=== PATIENT | female | born 1930 | race Caucasian/White ===

== ENCOUNTER 2016-05-06 13:41 | Outpatient (CLI) | payer MEDICARE, OTHER | END 2016-05-06 13:42 | disposition home or self-care (01) | DX: I10 Essential (primary) hypertension (principal) ==

== ENCOUNTER 2016-08-21 13:04 | Inpatient (IN) | payer MEDICARE, OTHER ==
[2016-08-21 13:57] LABS: BASOPHILS # (AUTO) 0.1 10^3/uL (0.0-0.1); BASOPHILS % (AUTO) 0.6 %; EOSINOPHILS # (AUTO) 0.6 10^3/uL (0.0-0.7); EOSINOPHILS % (AUTO) 5.3 %; HCT - HEMATOCRIT 38.6 % (37.0-47.0); HGB - HEMOGLOBIN 13.1 g/dL (12.0-16.0); LYMPHOCYTES # (AUTO) 2.5 10^3/uL (1.5-3.5); LYMPHOCYTES % (AUTO) 22.4 %; MEAN CORPUSCULAR HEMOGLOBIN 28.6 pg (27.0-31.0); MEAN CORPUSCULAR VOLUME 84.2 fL (81.0-99.0); MONOCYTES # (AUTO) 1.1 10^3/uL (0.0-1.0); NEUTROPHILS # (AUTO) 6.8 10^3/uL (1.5-6.6); NEUTROPHILS % (AUTO) 61.7 %; RED BLOOD COUNT 4.58 10^6/uL (4.20-5.40); RED CELL DISTRIBUTION WIDTH 16.2 % (12.0-15.0)
--- NOTE | 2016-08-21 13:59 | ED Physician Documentation ---
PD HPI ALTERED MENTAL STATUS - Stated complaint Stated Complaint: POSS STROKE - Chief complaint Chief Complaint: Neuro - History obtained from History obtained from: Patient - History of Present Illness Timing - onset: Unknown Timing - duration: Days (unsure, but seems more frequent than in the past) Timing - details: Intermittant Quality / character: Other (states intermittent word finding difficulties.) Associated symptoms: No: Fever, Headache, Stiff neck, Dyspnea, Cough, NVD, Urinary sx, General weakness, Focal weakness, Seizure activity, Syncope Contributing factors: Diabetic Basline status: Alert and oriented X 3, Ambulatory, Independent Similar symptoms before: Has not had sx before Recently seen: Clinic (sent from [facility] cardiology appt for evaluation.) Review of Systems Ten Systems: 10 systems reviewed and negative Constitutional: denies: Fever, Chills Nose: denies: Rhinorrhea / runny nose, Congestion Cardiac: denies: Chest pain / pressure Respiratory: denies: Cough GI: denies: Abdominal Pain, Nausea, Vomiting, Diarrhea Skin: denies: Rash Musculoskeletal: denies: Neck pain, Back pain Neurologic: denies: Focal weakness, Numbness, Syncope, Headache, Head injury PD PAST MEDICAL HISTORY - Past Medical History Past Medical History: Yes Cardiovascular: Congestive heart failure, Hypertension, Deep vein thrombosis, Angina Respiratory: None Neuro: None Endocrine/Autoimmune: Type 2 diabetes, HyPOthyroidism GI: GERD Musculoskeletal: Fibromyalgia, Chronic back pain - Past Surgical History Past Surgical History: Yes General: Colonoscopy /FUR LINER: Hysterectomy, Oophrectomy HEENT: Cataracts, Tonsil/Adenoidectomy - Present Medications Home Medications: Ambulatory Orders Medication Instructions Recorded Confirmed Furosemide [Lasix] 20 mg PO DAILY 04/26/13 08/21/16 Insulin Glargine [Lantus] 20 unit SUBQ QPM 04/26/13 08/21/16 Levothyroxine [Synthroid] 88 mcg PO QDAC 04/26/13 08/21/16 Losartan [Cozaar] 100 mg PO DAILY 04/26/13 08/21/16 Ranitidine HCl [Zantac] 150 mg PO BID 04/26/13 08/21/16 Tizanidine HCl 4 mg PO TID PRN 04/26/13 08/21/16 traMADol [Ultram] 100 mg PO TID PRN 04/26/13 08/21/16 traZODone [Desyrel] 75 mg PO HS PRN 04/26/13 08/21/16 Aspirin [Paco Chewable Aspirin] 81 mg PO DAILY 10/04/15 08/21/16 oxyCODONE [Roxicodone] 5 mg PO BID PRN 10/04/15 08/21/16 Atorvastatin Calcium 20 mg PO QPM 03/22/16 08/21/16 Cholecalciferol (Vitamin D3) 2,000 unit PO DAILY 03/22/16 08/21/16 [Vitamin D3] Lisinopril 10 mg PO DAILY 03/22/16 08/21/16 Metoprolol Tartrate 50 mg PO BID 03/22/16 08/21/16 Multivitamin [Multiple Vitamins] 1 each PO DAILY 03/22/16 08/21/16 Saccharomyces Boulardii [Florastor] 250 mg PO QPM 03/22/16 08/21/16 amLODIPine [Norvasc] 5 mg PO BID 03/22/16 08/21/16 cloNIDine [Catapres] 0.1 mg PO DAILY 03/22/16 08/21/16 cloNIDine [Catapres] 0.2 mg PO QPM 03/22/16 08/21/16 - Allergies Allergies/Adverse Reactions: Allergies Allergy/AdvReac Type Severity Reaction Status Date / Time pregabalin [From Lyrica] Allergy Severe Hives Verified 08/21/16 13:10 Penicillins AdvReac Intermediate Hives Verified 08/21/16 13:10 iv contract Allergy Severe Hives Uncoded 08/21/16 13:10 - Social History Does the pt smoke?: No Smoking Status: Never smoker Does the pt drink ETOH?: No Does the pt have substance abuse?: No - Immunizations Immunizations are current?: Yes - POLST Patient has POLST: Yes PD ED PE NORMAL - Vitals Vital signs reviewed: Yes - General General: Alert and oriented X 3, No acute distress, Well developed/nourished - HEENT HEENT: PERRL, Moist mucous membranes - Neck Neck: Supple, no meningeal sign - Cardiac Cardiac: RRR, Strong equal pulses - Respiratory Respiratory: No respiratory distress, Clear bilaterally - Abdomen Abdomen: Soft, Non tender, Non distended - Back Back: No spinal TTP - Derm Derm: Warm and dry, No rash - Extremities Extremities: No calf tenderness / cord - Neuro Neuro: Alert and oriented X 3, 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, No motor deficit, No sensory deficit, Other (difficulty with word finding occasionally.) - Psych Psych: Normal mood, Normal affect NIHSS - Time Time: 13:40 - Level of Consciousness Level of consciousness: (0) Alert, Keenly responsive LOC Questions: (0) Answers both Q's correct LOC Commands: (0) Performs both correctly - Gaze Best Gaze: (0) Normal - Visual Visual: (0) No loss - Facial Palsy Facial Palsy: (0) Normal, symmetrical movement - Motor Arms (both separate) Motor Arm (right): (0) No drift Motor Arm (left): (0) No drift - Motor Legs (both separate) Motor Leg (right): (0) No drift Motor Leg (left): (0) No drift - Limb Ataxia Limb Ataxia: (0) Absent - Sensory Sensory: (0) Normal - Best Language Best Language: (1) [id number] - Dysarthria Dysarthria: (0) Normal - Extinction and Inattention (formally neg Extinction and inattention: (0) No abnormality - Total Score/Results Total Score/Result: 1 Results - Vitals Vitals: Vital Signs - 24 hr 08/21/16 08/21/16 13:05 14:34 Temperature 36.8 C Heart Rate 87 100 Respiratory 17 18 Rate Blood Pressure 179/108 H 169/82 H O2 Saturation 97 100 Oxygen O2 Source [With Activity] Room air O2 Source Room air - Labs Labs: Laboratory Tests 08/21/16 08/21/16 08/21/16 13:35 13:35 13:38 WBC 11.0 H RBC 4.58 Hgb 13.1 Hct 38.6 MCV 84.2 MCH 28.6 MCHC 34.0 RDW 16.2 H Plt Count 237 MPV 8.0 Neut # 6.8 H Lymph # 2.5 Juab # 1.1 H Eos # 0.6 Baso # 0.1 Absolute Nucleated RBC 0.00 Nucleated RBCs 0.0 Sodium 138 Potassium 3.9 Chloride 100 L Carbon Dioxide 29 Anion Gap 9.0 BUN 60 H Creatinine 1.6 H Estimated GFR (MDRD) 31 L Glucose 87 Glycated Hemoglobin 8.5 H Estim Average Glucose 197 H Calcium 9.7 Total Bilirubin 0.5 AST 29 ALT 27 Alkaline Phosphatase 74 Total Protein 7.1 Albumin 4.1 Globulin 3.0 Albumin/Globulin Ratio 1.4 Lipase 25 Urine Color Urine Clarity Urine pH Ur Specific [place] Urine Protein Urine Glucose (UA) Urine Ketones Urine Occult Blood Urine Nitrite Urine Bilirubin Urine Urobilinogen Ur Leukocyte Esterase Ur Microscopic Review Urine Culture Comments 08/21/16 14:25 WBC RBC Hgb Hct MCV MCH MCHC RDW Plt Count MPV Neut # Lymph # Juab # Eos # Baso # Absolute Nucleated RBC Nucleated RBCs Sodium Potassium Chloride Carbon Dioxide Anion Gap BUN Creatinine Estimated GFR (MDRD) Glucose Glycated Hemoglobin Estim Average Glucose Calcium Total Bilirubin AST ALT Alkaline Phosphatase Total Protein Albumin Globulin Albumin/Globulin Ratio Lipase Urine Color YELLOW Urine Clarity CLEAR Urine pH 5.5 Ur Specific [place] <=1.005 Urine Protein NEGATIVE Urine Glucose (UA) NEGATIVE Urine Ketones NEGATIVE Urine Occult Blood NEGATIVE Urine Nitrite NEGATIVE Urine Bilirubin NEGATIVE Urine Urobilinogen 0.2 (NORMAL) Ur Leukocyte Esterase NEGATIVE Ur Microscopic Review NOT INDICATED Urine Culture Comments NOT INDICATED - Rads (name of study) CT head Radiology: Prelim report reviewed, EMP read contemporaneously, See rad report ( CT findings suspicious for subacute posterior left MCA distribution infarct. There is parietal region cortical and subcortical hypodensity with sulcal effacement. No evidence of hemorrhage or significant mass effect. ) PD MEDICAL DECISION MAKING - ED course Complexity details: reviewed results, re-evaluated patient, considered differential, d/w patient, d/w group segment consultant ED course: Patient is an 86-year-old female with word finding difficulties for the past 2- 3 days. Appears to have a subacute posterior left MCA distribution infarct on CT scan. She is still having some difficulty with word finding the emergency department. We will admit the patient for further evaluation of her stroke. Discussed the case with Dr. Gomez, hospitalist who accepts. No other focal neurological findings. This document was made in part using voice recognition software. While efforts are made to proofread this document, sound alike and grammatical errors may occur. Departure - Departure Disposition: 66 [facility] DC/Xfer Clinical Impression: Cerebrovascular accident (CVA) Qualifiers: CVA mechanism: unspecified Qualified Code(s): I63.9 - Cerebral infarction, unspecified Condition: Good Discharge Date/Time: 08/21/16 17:22
[2016-08-21 14:07] LABS: ALBUMIN/GLOBULIN RATIO 1.4 (1.0-2.2); BILIRUBIN,TOTAL 0.5 mg/dL (0.2-1.0); CALCIUM 9.7 mg/dL (8.5-10.3); CREATININE 1.6 mg/dL (0.4-1.0); POTASSIUM 3.9 mmol/L (3.5-5.0); TOTAL PROTEIN 7.1 g/dL (6.7-8.2)
--- NOTE | 2016-08-21 14:41 | CT Preliminary Report ---
Exam: CT Head W/O IMPRESSION: CT findings suspicious for subacute posterior left MCA distribution infarct. There is par ietal region cortical and subcortical hypodensity with sulcal effacement. No evidence of hemorrhage o r significant mass effect. [facility] SITE ID: [id number]
--- NOTE | 2016-08-21 14:44 | CT Report ---
EXAM: CT HEAD EXAM DATE: 08/21/2016 02:15 PM. CLINICAL HISTORY: Word finding difficulty. COMPARISON: 09/25/2014. TECHNIQUE: Multiaxial CT images were obtained from the foramen magnum to the vertex. IV contrast: Non e. Reformats: Coronal. In accordance with CT protocol optimization, one or more of the following dose reduction techniques w ere utilized for this exam: automated exposure control, adjustment of mA and/or KV based on patient s ize, or use of iterative reconstructive technique. FINDINGS: There is ill-defined subcortical hypodensity within the posterior left parietal lobe. There is mild associated sulcal effacement. There is no evidence of significant mass effect. No parenchyma l hemorrhage. No other areas of recent loss of vo-white matter differentiation are seen. There is periventricular white matter hypodensity which likely represents small vessel ischemic disease. There is mild genera lized volume loss. Ventricles and cisterns are normal in size and configuration. No acute extra-axial collection is seen. There are vascular calcifications. Visualized paranasal sinuses and mastoid air cells are clear. No acute bony abnormalities. Extracalva rial soft tissues are unremarkable. IMPRESSION: CT findings suspicious for subacute posterior left MCA distribution infarct. There is par ietal region cortical and subcortical hypodensity with sulcal effacement. No evidence of hemorrhage o r significant mass effect. [facility] Referring Provider Line: [phone] SITE ID: [id number]
[2016-08-21 14:54] LABS: BILIRUBIN,URINE NEGATIVE (NEGATIVE); PH,URINE 5.5 PH (5.0-7.5); UA CHARGE (STRIP ONLY) YES; UR CULTURE IF IND NOT INDICATED
[2016-08-21] MEDS ORDERED: SODIUM CHLORIDE FLUSH 0.9% 10 ML SYRINGE IVP PRN (15:41)
[2016-08-21] MEDS ORDERED: SODIUM CHLORIDE 0.9% 1,000 ML IV SCH ×2 (16:00→19:00)
--- NOTE | 2016-08-21 18:12 | Ultrasound Preliminary Report ---
Exam: US Carotid Doppler Complete IMPRESSION: 1. Left carotid bulb and proximal ICA demonstrate greater than 70% stenosis. 2. Mid left ICA consistent with 5069% estimated stenosis. 3. Distal left ICA consistent with less than 50% estimated stenosis. 4. No right carotid hemodynamically significant stenoses. 5. Left greater than right carotid bulb calcific plaque noted. Validated velocity measurements with angiographic measurements and velocity criteria are extrapolated from diameter data as defined by the Society of Radiologists in Ultrasound Consensus Conference Radi ology 2003; 229;340-346. [facility] SITE ID: [id number]
[2016-08-21] MEDS ORDERED: oxyCODONE 5 MG TABLET PO PRN (18:25)
[2016-08-21] MEDS ORDERED: traMADol 50 MG TABLET PO PRN (18:25)
[2016-08-21] MEDS ORDERED: traZODone 50 MG TABLET PO PRN (18:25)
--- NOTE | 2016-08-21 18:25 | Ultrasound Report ---
EXAM: CAROTID DOPPLER ULTRASOUND EXAM DATE: 08/21/2016 05:30 PM. CLINICAL HISTORY: Stroke, rule out carotid artery stenosis. COMPARISON: None. TECHNIQUE: Real-time sonographic vascular imaging was performed by the aircraft maintenance manager through the [employer] arterial system with a linear transducer utilizing color-flow, Doppler flow and spectral analysis. Multiple truck sales representative static images were saved for review. FINDINGS: Right: No hemodynamically significant stenoses identified. Mild calcific plaque present around the ca rotid bulb diffusely. Antegrade vertebral artery flow noted. Left: Moderate atherosclerotic plaque present about the carotid bulb diffusely. Elevated peak systoli c velocities and end-diastolic velocities noted within the left carotid bulb and proximal greater kevin n distal ICA. Left bulb and proximal ICA velocities consistent with greater than 70% stenosis, mid IC A consistent with 5069% estimated stenosis and distal ICA consistent with less than 50% estimated st enosis. Antegrade left vertebral artery flow noted. Right: RCCA Prox: PSV 68 cm/sec. RCCA Dist: PSV 94 cm/sec, EDV 17 cm/sec. RECA: PSV 99 cm/sec. R Bulb: PSV 48 cm/sec, EDV 11 cm/sec, ICA/CCA ratio 0.51. OLGA LIDIA Prox: PSV 106 cm/sec, EDV 33 cm/sec, ICA/CCA ratio 1.1. OLGA LIDIA Mid: PSV 81 cm/sec, EDV 18 cm/sec, ICA/CCA ratio 0.86. OLGA LIDIA Dist: PSV 76 cm/sec, EDV 21 cm/sec, ICA/CCA ratio 0.80. RVA: PSV 69 cm/sec. RVA flow direction: Antegrade. Left: LCCA Prox: PSV 52 cm/sec. LCCA Dist: PSV 48 cm/sec, EDV 11 cm/sec. LECA: PSV 188 cm/sec. L Bulb: PSV 329 cm/sec, EDV 47 cm/sec, ICA/CCA ratio 6.85. LICA Prox: PSV 296 cm/sec, EDV 54 cm/sec, ICA/CCA ratio 6.16. LICA Mid: PSV 220 cm/sec, EDV 34 cm/sec, ICA/CCA ratio 4.58. LICA Dist: PSV 128 cm/sec, EDV 26 cm/sec, ICA/CCA ratio 2.66. LVA: PSV 63 cm/sec. LVA flow direction: Antegrade. Other: None. IMPRESSION: 1. Left carotid bulb and proximal ICA demonstrate greater than 70% stenosis. 2. Mid left ICA consistent with 5069% estimated stenosis. 3. Distal left ICA consistent with less than 50% estimated stenosis. 4. No right carotid hemodynamically significant stenoses. 5. Left greater than right carotid bulb calcific plaque noted. Validated velocity measurements with angiographic measurements and velocity criteria are extrapolated from diameter data as defined by the Society of Radiologists in Ultrasound Consensus Conference Radi ology 2003; 229;340-346. [facility] Referring Provider Line: [phone] SITE ID: [id number]
[2016-08-21 20:35] LABS: HEMOGLOBIN A1C 0.98 g/dL
[2016-08-21] MEDS: INSULIN ASPART 300 UNIT/3 ML PEN SUBQ SCH (20:51)
[2016-08-21] MEDS ORDERED: INSULIN GLARGINE 300 UNIT/3 ML PEN SUBQ SCH ×2 (21:00)
[2016-08-21] MEDS ORDERED: INSULIN GLARGINE 20 UNIT SUBQ SCH (21:00)
[2016-08-21] MEDS ORDERED: cloNIDine 0.1 MG TABLET PO SCH (21:00)
[2016-08-21] MEDS ORDERED: ATORVASTATIN 40 MG TABLET PO SCH (21:00)
[2016-08-21] MEDS ORDERED: METOPROLOL TARTRATE 25 MG TABLET PO SCH (21:00)
[2016-08-21] MEDS: SODIUM CHLORIDE FLUSH 0.9% 10 ML SYRINGE IVP SCH (21:05)
--- NOTE | 2016-08-22 06:12 | HISTORY & PHYSICAL EXAMINATION ---
DATE OF ADMISSION: 08/21/2016 PRIMARY CARE PHYSICIAN: Keren Espitia M.D. She also is followed by Fiona Vieira MD, Cardiology. CHIEF COMPLAINT: Difficult word finding since Thursday. HISTORY OF PRESENT ILLNESS: The patient is an 86-year-old female who notes that on Thursday, approximately 4 days ago, she woke up and she said immediately she could tell that something was wrong and she let her son know. She had difficulty finding words. At the time she did actually have awareness that that could be a sign of a stroke, and even said to him, "I think I'm having a stroke, " but they did not seek intervention. When asked why she presented finally today , she said that a friend was over and she was still having word finding difficulty. She denies it is any worse or better over the last 4 days, and she was advised by her friend to come to the emergency room. On exam she did not have any other focal deficits specifically no trouble chewing or swallowingno no aphasia, no receptive aphasia, no unilateral weakness or paresthesias and no falls. She also denies any prior history of stuttering or occasional symptoms of word-finding difficulty. In the emergency room, a CT of the brain showed findings suspicious for a subacute posterior left MCA distribution infarct. Of note, on prior admissions the patient had had an ultrasound of the carotids, which was suggestive of a 70 % left carotid stenosis. However, as an outpatient at the [facility] she had an MRA of the neck, which demonstrated that this was only 40% on the clearer resolution offered by the MR. She was already taking baby aspirin daily and she was taking that as prescribed every day. She is also on a low dose statin, which she has been taking. Regarding other risk factors for stroke, she does not have a prior history of atrial fibrillation (see below re: new afib), does not have a smoking history, does have a history of hyperlipidemia again on low dose statin, and history of coronary disease and hypertension. It is not clear that she has ever had a definitive diagnosis of coronary artery disease with a cardiac catheterization. PAST MEDICAL HISTORY 1. Congestive heart failure with known diastolic dysfunction. 2. Hypertension. 3. History of deep venous thrombosis. 4. History of "angina and coronary disease." I do not have records, I will explore Dr. Vieira's notes. 5. History of obstructive sleep apnea on CPAP. 6. Diabetes mellitus type 2 on insulin. 7. Hypothyroidism. 8. Gastroesophageal reflux disease. 9. Fibromyalgia. 10. Chronic low back pain following a fall 11 MRA neck ~ 01/2016 ([facility] 40% stenosis L ICA per Dr. Vieira). HOME MEDICATIONS LIST This is yet to be confirmed, but the patient thinks she remembers this list: 1. Lasix 40 mg in the morning and 20 mg at noon. 2. Lantus 30 units each evening. This is an increase from 20 in March. 3. Levothyroxine 88 mcg once daily. 4. Losartan 100 mg once daily>>>>iN MED RECONCILIATION SHE IS NOT ON LOSARTAN, ONLY ACEI 5. Zantac 150 mg twice daily. 6. Tizanidine 4 mg 3 times daily if needed for back pain. 7. Ultram 100 mg 3 times daily p.r.n. 8. Trazodone 75 mg nightly at bedtime. 9. Aspirin 81 mg once daily. 10. Oxycodone 5 mg twice daily if needed. She has not taken that recently. 11. Atorvastatin 20 mg each evening. 12. Cholecalciferol 2000 units daily. 13. Lisinopril 10 mg once daily. 14. Metoprolol 50 mg twice daily. 15. Multivitamin once daily. 16. Amlodipine THIS WAS STOPPED MARCH 2016. 17. Clonidine 0.1 mg each evening at 0.2 mg each p.m. PRIOR PROCEDURES AND SURGERIES Include 1. A Mohs procedure (?) FROM OLD RECORD. 2. Colonoscopy. 3. NIKIA. 4. Tonsillectomy and adenoidectomy. 5. Cholecystectomy. SOCIAL HISTORY: She LIVES IN [place], has been for 3 years. She lives with one son, her youngest. She has 4 other children who are in the [place] area. FAMILY HISTORY: Her mother , and patient's dysarthria is interfering with her being able to say why. Her father at age 90. She does have a sister who has pulmonary disease evidently in the form of asthma. (per old record, a daughter w/ emphsema is 02 dependent.) ALLERGIES SHE HAS HIVES A REACTION TO 1. PENICILLIN. 2. IV CONTRAST. 3. LYRICA. HABITS: Never tobacco smoker, no alcohol, and no illicits. REVIEW OF SYSTEMS CONSTITUTIONAL: She denies any unintentional weight loss or weight gain. No fevers, night sweats, or lymphadenopathy. HEAD, EYES, EARS, NOSE, AND THROAT: Denies any vision changes. CARDIOVASCULAR: No chest pain, palpitations. No near-syncope. No edema. RESPIRATORY: No cough, shortness of breath, or wheezing. She does wear her CPAP nightly as above. GASTROINTESTINAL: She reports that she takes MiraLax twice daily and complains of having frequent loose bowel movements. She denies constipation. Denies any food intolerance. Denies any melena or hematochezia. MUSCULOSKELETAL: No new myalgias or arthralgias. GENITOURINARY: No dysuria, frequency, or hesitancy. NEUROLOGIC: As per the HPI. PSYCHIATRIC: She reports no difficulty sleeping and was controlled on her trazodone. ENDOCRINE: She is on Lantus, and she reports a dose increase to 30 units once a day which is increased from her last stay here in March. She does check her fingersticks, and at the moment with her word finding difficulty she says she cannot remember ever having been high or low, and that she has been forgetting to check her fingersticks this week. She denies lows under 70 or highs over 200. PHYSICAL EXAMINATION VITAL SIGNS: In the emergency room afebrile 36.8, heart rate 87. Initial blood pressure 179/108, subsequent 169/82, respiratory rate 17, room air oxygenation 97%. GENERAL: The patient is seen at approximately 6 p.m. when she returned from a carotid duplex. She came to the floor by stretcher and she was able to get up out of the stretcher on her own without assistance. In general, she is a rather short elderly female who is alert and oriented and appropriate female who is somewhat frustrated on occasion when she has difficulty finding a word and closes her eyes as she tries to think of it but for the most part able to articulate w/o difficulty.. HEAD, EARS, EYES, NOSE, AND THROAT: She is normocephalic, atraumatic. Eyes are with anicteric sclerae. Her extraocular movements are intact. Pupils are approximately 2 mm. No appreciable senile arcus. Her cheeks are somewhat flushed. Oral mucosa is moist. Her face is symmetric. NECK: There is no appreciable lymphadenopathy. Supple. There is a carotid bruit that is easily audible on the left that is not present on the right. CHEST: With unlabored respirations, no cough, clear to auscultation. CARDIAC: Irregularly irregular S1, S2 currently. Difficult to tell until monitor is hooked up whether this is just occasional extrasystole. She has periphery warm and dry. No appreciable lower extremity edema. ABDOMEN: She has a generous abdomen which is soft and nontender with positive bowel sounds. NEUROLOGIC: She is alert, oriented and appropriate. Has a good recall of events. She is able to label a curtain, a shoe, a foot, and nearly gets out the word stethoscope. She is able to say what it is for, but has some difficulty identifying that item by word. Cranial nerves 2 through 12 as above. Extraocular movements are intact. Face is symmetric. Tongue is midline. Smile is symmetric. Shoulder shrug is even. Rapid alternating movements are intact and she has a negative pronator drift. In obtaining her history, she only occasionally suddenly has a lapse in being able to name a medication that she is on or a treatment such as her sleep apnea , she says, "for breathing," and also had a sudden inability to come up with a word when trying to indicate why her mother , but generally is doing quite well in speech responses. DIAGNOSTIC STUDIES: As above. CT of the brain showed a likely subacute posterior left MCA distribution infarct with parietal region cortical and subcortical hypodensity with sulcal effacement. No hemorrhage or mass effect. LABORATORY STUDIES: White count 11.0, hemoglobin 13.1, hematocrit 38.6, platelets 237,000. Sodium 138, potassium 3.9, chloride 100, bicarbonate 29, BUN 60, creatinine 1.6. This is in comparison with a BUN and creatinine of 25 and 1.2 when she was last here in March 2016. Troponin was not done, but one will be added to her labs. Lipid panel was not done, but will be added. EKG and backup administrator to tele intially pending at the time of this dictation, BUT once hooked up to telemetry she is clearly in rate controlled aflutter 3:1-4:1 currently. ASSESSMENT AND PLAN 1. Acute stroke with thus far only a word finding deficit as far as neurologic deficits. Initially, the left carotid was felt to be the most obvious likely source. However, the 70% stenosis seen on a prior ultrasound here corresponds with only 40% on a recent MRA; however, she certainly does have a bruit on that side. A repeat ultrasound was done today and at Dr. Vieira's request we will repeat the MRA to get a better depiction of that left carotid. She was already on aspirin, so Plavix will be added for dual antiplatelet therapy. She is on a statin, but only at 20 mg daily. This will be increased to 80 mg. She will also be on telemetry overnight. Currently, she sounds irregular. She could conceivably have developed atrial fibrillation, and will have a troponin checked. >>No telemetry or EKG yet at the time of this dictation, but did have new aflutter; see d/c summary. 2. She is somewhat volume deplete, with a BUN and creatinine of 60/1.6 compared with a more recent 25/1.2, and she will get some gentle volume overnight in case any volume depletion is mildly contributing to the symptoms as well, and we will check her fingersticks to ensure adequate glucose control with her stroke, although her admitting glucose is very well controlled range at 87. We will also monitor for any hypoglycemia. Her blood pressure is elevated , but given the acute stroke we will allow permissive hypertension with no intervention, unless her blood pressure is over 220/110. 3. Acute kidney injury with BUN and creatinine of 60 and 1.6, with the most recent comparison that we have 25/1.2 in March. If I understand correctly, she has been taking Lasix 40 in the morning and 20 at noon. She was discharged on 20 once a day. She also indicates that she is having frequent bowel movements when taking MiraLax. She will be gently hydrated overnight, and we will reevaluate with the increased Lasix dose what the indication would have been, and will revaluate her BUN and creatinine in the morning. It is unclear if she may have been taking both an ARB and ACEI from the last discharge summary . We will clarifiy this with pharmacy reoncilliation in the am. 4. Hypertension. As above, we will have permissive hypertension. She is already on several agents at home, clonidine, metoprolol, Losartan, and lisinopril. For now, I will resume her metoprolol as well as the clonidine to avoid any reflex tachycardia and, again, avoid any hypotension in the setting of acute stroke. Hold off on ACEI for #3 above. 5. Obstructive sleep apnea. She religiously wears her CPAP and she indicates that her son will be bringing that from home. 6. Chronic low back pain. We will continue her home medications for that, which include p.r.n. tizanidine, p.r.n. tramadol, and p.r.n. oxycodone. 7. Gastroesophageal reflux disease. She can continue on her H2 rebecca, in here we have famotidine. 8. Diabetes mellitus type 2. We will continue her home dose of Lantus 30. Since her glucose was only 87 on admission and she has not eaten all day I am actually going to give her half of her home dose of go on from there. 9. Deep vein thrombosis prophylaxis. She will be on Lovenox 40 mg in the setting of acute stroke. 10. CODE STATUS: She was having some word finding difficulty, when she said, "I have one of those green forms," I believe she was indicating a POLST. She said she would not want anything if she could not be kept alive, but when we tried to be clear that that is not something we can tell, she says she has not given enough thought, and she is aware to give some more consideration to what she would like done in the event of cardiopulmonary arrest. (Later found on old H/P she has requested DNR/DNI in past) JOB #: [id number] EXT JOB #:[id number] MARY JO
[2016-08-22] MEDS: SODIUM CHLORIDE FLUSH 0.9% 10 ML SYRINGE IVP SCH ×2 (06:15→14:16)
[2016-08-22 06:18] LABS: HCT - HEMATOCRIT 39.6 % (37.0-47.0); MEAN CORPUSCULAR HEMOGLOBIN 28.3 pg (27.0-31.0); MEAN CORPUSCULAR HGB CONC 32.8 g/dL (32.0-36.0); MEAN CORPUSCULAR VOLUME 86.2 fL (81.0-99.0); RED BLOOD COUNT 4.59 10^6/uL (4.20-5.40); RED CELL DISTRIBUTION WIDTH 16.7 % (12.0-15.0); WHITE BLOOD COUNT 10.6 x10^3/uL (4.8-10.8)
[2016-08-22 06:24] LABS: CALCIUM 9.2 mg/dL (8.5-10.3); CREATININE 1.5 mg/dL (0.4-1.0); POTASSIUM 3.8 mmol/L (3.5-5.0)
[2016-08-22] MEDS ORDERED: LEVOTHYROXINE 88 MCG TABLET PO SCH (07:00)
[2016-08-22] MEDS ORDERED: METOPROLOL TARTRATE 25 MG TABLET PO SCH (08:47)
[2016-08-22] MEDS: INSULIN ASPART 300 UNIT/3 ML PEN SUBQ SCH ×2 (08:54→11:56)
[2016-08-22] MEDS ORDERED: POLYETHYLENE GLYCOL 3350 17 GM PACKET PO SCH (09:00)
[2016-08-22] MEDS ORDERED: ASPIRIN CHEW 81 MG TABLET PO SCH (09:00)
[2016-08-22] MEDS ORDERED: ENOXAPARIN 30 MG/0.3 ML SYRINGE SUBQ SCH (09:00)
[2016-08-22] MEDS ORDERED: cloNIDine 0.1 MG TABLET PO SCH ×2 (09:00)
[2016-08-22] MEDS ORDERED: ENOXAPARIN 40 MG/0.4 ML SYRINGE SUBQ SCH (09:00)
[2016-08-22] MEDS ORDERED: CLOPIDOGREL 75 MG TABLET PO SCH (09:00)
[2016-08-22 09:25] LABS: CHOL/HDL RATIO 2.5 (<4.4); CHOLESTEROL 111 mg/dL; HDL CHOLESTEROL 45 mg/dL; LDL/HDL RATIO 1.1 (<4.4); TRIGLYCERIDES 87 mg/dL; VLDL CHOLESTEROL 17 mg/dL
--- NOTE | 2016-08-22 11:18 | MRI Preliminary Report ---
Exam: MRI Angio Brain W/O (MRA) IMPRESSION: Unremarkable screening [facility] MRA. [facility] SITE ID: [id number]
--- NOTE | 2016-08-22 11:23 | MRI Preliminary Report ---
Exam: MRI Angio Neck W/O (MRA) IMPRESSION: Prominent stenosis in the region of the left cervical carotid bifurcation. Left ICA origi n stenosis measures about 60%. [facility] SITE ID: [id number]
[2016-08-22] MEDS ORDERED: ATORVASTATIN 40 MG TABLET PO SCH (11:37)
--- NOTE | 2016-08-22 11:41 | MRI Preliminary Report ---
Exam: MRI Brain W/O IMPRESSION: Late subacute infarct of the left lateral temporal occipital region with petechial hemorr renee. [facility] SITE ID: [id number]
--- NOTE | 2016-08-22 11:45 | Discharge Plan ---
Discharge Plan Disposition: Home, Self Care Condition: Stable Diet: Diabetic Activity Restrictions: No Restrictions Shower Restrictions: No Driving Restrictions: No Weight Bearing: Full Weight Additional Instructions or Follow Up instructions: Stroke You came to the hospital after several days of noticing you had "word finding difficulty" . Brain imaging showed a new stroke Evaluation of possible causes of stroke showed 1) NEW atrial flutter (a heart rhythm abnormality that can cause stroke) 2) stenosis (tightening of the Left carotid (vessel that runs to the brain in your neck), which was already known of. You were already taking daily aspirin at home. We spoke with neurology (Dr Martinez) at [facility] who reviewed the MRI studies of your brain and neck. She recommended. 1) Take FULL strengh (325 mg daily aspirin) for 1 month, 2) After 1 [address] get a repeat CT of the brain to reevaluate the blood that was around the area of the stroke 3) Then start anticoagulation (type to be discussed with Dr. Calderon, warfarin vs xareto vs other) and reduce the aspirin dose back to 81 mg daily 4) we also increased your atorvastatin to 40 mg (from 20 mg) For blood pressure we resumed (continued) your metoprolol and clonidine New atrial flutter (irregular heart rate) work up for this included EKG no evidence of heart attack,, echo (no significant valve abnormality, muscle "squeeze" is ok, heart enzymes (normal, no evidence of heart attack), TSH (in normal range on your home thyroid medication dose. You are already on metoprolol which can help control heart rate (but your rate was not too fast Acute kidney injury: Your renal function looked slower than in March (60/1.6; it was 25/1.2 in April) This is likey due to your lasix dose (recently increased) The March discharge summary from here indicates both losartan and lisinopril but nephrologists (kidney doctors) advise against being on BOTH of those together as that can interfere with kidney function. In reviewing Dr. Aviles med list for you it looks like you are ONLY on lisinopril (which makes sense) You can resume the lisinopril 20 mg daily tomorrow. Do not resume the losartan with that (if you were taking both) Do not resume your lasix until Dr Dannehauer rechecks your kidney function Diabetes: your blood sugar was low this morning after just 15 units lantus last night. Your kidneys have to clear insulin. Your kidney function was already a little better after getting some IVF Take only 20 units of insulin tonight If your morning blood sugar is 130 or higher tomorrow, ok to resume your home dose of 30 units Measure your finger stick blood glucsoe Follow-Up Care: Outpatient Rehab - No Smoking: If you smoke, Please STOP! Call for help. Follow-up with: Keren Espitia MD [Provider Admit Priv/Credential] - 1-2 Days (needs referral for speech therapy (word finding with L posterior MCA distribution stroke) Per [facility] neurology; full dose ASA 325 mg x 1 month, then reCT brain to reevaluate bleed around stroke area, THEN can start anticoagulation for aflutter and change back to baby aspirin daily Recheck creatinine before resuming lasix Reimage left carotid in ~ 2-3 mos ; ensure stable new atrial flutter )
--- NOTE | 2016-08-22 13:25 | MRI Report ---
EXAM MRA BRAIN EXAM DATE: 08/22/2016 11:05 AM. CLINICAL HISTORY: Word finding difficulty. Recent abnormal head CT showing a hypodense left cerebral lesion suspicious for infarct. COMPARISON: None. TECHNIQUE: Multiplanar, multisequence MRA sequences of the brain were performed. Other: None. Post-pr ocessing: Multiplanar 3D MIP reconstructions. IV Contrast: None. FINDINGS: Unremarkable screening [facility] MRA. No proximal intracranial large artery flow-limiting sten osis, occlusion, or filling defect. The distal internal carotid arteries are patent. No intracranial vertebrobasilar insufficiency. No evidence for [facility] aneurysm. IMPRESSION: Unremarkable screening [facility] MRA. [facility] Referring Provider Line: [phone] SITE ID: [id number]
--- NOTE | 2016-08-22 13:25 | MRI Report ---
EXAM: MR ANGIOGRAM NECK EXAM DATE: 08/22/2016 11:05 AM. CLINICAL HISTORY: Word finding difficulties. Recent abnormal head CT showing findings concerning for left MCA territory infarct. Known carotid stenosis. COMPARISON: No prior neck MRA. TECHNIQUE: Multiplanar, multisequence MRA sequences of the neck were performed. Other: None. Post-pro cessing: Multiplanar 3D MIP reconstructions. IV Contrast: None. Evaluation of arterial stenosis is b ased on a NASCET method of measurement. FINDINGS: Incomplete arterial evaluation in the low neck due to imaging artifact. The cervical vertebral and carotid arteries appear patent. No evidence for acute abnormality or hemod ynamically significant stenosis of the visualized segments of the cervical vertebral arteries. No evidence for hemodynamically significant stenosis at the right cervical carotid bifurcation. Prominent localized loss of arterial flow signal in the region of the left cervical carotid bifurcati on. Essentially complete loss of flow signal over a 3 mm long segment at the left external carotid ar vineet origin. Arterial flow signal on both sides of this lesion is present, this may represent high-gr sami stenosis rather than occlusion. Prominent focal luminal stenosis at the left cervical ICA origin, stenosis measures approximately 60% . IMPRESSION: Prominent stenosis in the region of the left cervical carotid bifurcation. Left ICA origi n stenosis measures about 60%. [facility] Referring Provider Line: [phone] SITE ID: [id number]
--- NOTE | 2016-08-22 13:26 | MRI Report ---
EXAM: MRI BRAIN WITHOUT CONTRAST EXAM DATE: 08/22/2016 11:23 AM. CLINICAL HISTORY: Word finding difficulties. Concern for recent stroke. COMPARISON: No prior MRI. TECHNIQUE: Multiplanar, multisequence T1-weighted and fluid-sensitive MR sequences of the brain were performed. Sequences optimized for routine evaluation. Other: None. IV Contrast: None. FINDINGS: Brain Volume: Mild diffuse atrophy. Parenchyma/Dura: Large ovoid left temporal occipital lesion measuring 47 x 36 x 22 mm. This lesion sh ows T2 hyperintensity with mild local swelling and edema. Central heterogeneous hypointense signal is present especially notable on the gradient echo sequence consistent with petechial hemorrhage. No re stricted diffusion. Hypointensity on the ADC map is likely susceptibility artifact from blood product s. Hemorrhage is likely petechial and discrete hematoma with mass effect is not demonstrated. No other evidence for acute intracranial abnormality. No hydrocephalus or midline shift. Mild chronic -appearing white matter disease is present, consistent with microangiopathy. There is a small region of chronic anterior right temporal pole cortical encephalomalacia and gliosis consistent with remote injury. In the cerebellum, there are a few tiny abnormal foci of T2 hyperintensity, which are consistent with old very small infarcts. Ventricles/Cisterns: No hydrocephalus. Sinuses: No acute-appearing sinus or mastoid disease. Bones: No focal pathologic-appearing marrow signal changes. The pituitary fossa is mildly expanded. T his likely represents an incidental partially empty sella, which is a relatively common anatomic vari ant that is usually incidental. Other: Previous lens extractions. The major arterial skull base flow voids are present. IMPRESSION: Late subacute infarct of the left lateral temporal occipital region with petechial hemorr renee. [facility] Referring Provider Line: [phone] SITE ID: [id number]
[2016-08-22 19:17] VITALS: BP 180/108
--- NOTE | 2016-08-22 20:39 | DISCHARGE SUMMARY ---
DATE OF ADMISSION: 08/21/2016 DATE OF DISCHARGE: 08/22/2016 PRIMARY CARE PROVIDER: Dr. Keren Espitia. DISCHARGE DIAGNOSIS: 1. Stroke, specifically a late subacute infarct of the left lateral temporal occipital region. 2. Word finding difficulties.. 3. New atrial flutter 4. Left carotid stenosis 60% LICA origin via MRA 5. Acute kidney injury. SECONDARY DIAGNOSES: 1. History of hypertension. 2. History of congestive heart failure with known diastolic dysfunction. CONSULTATIONS: 1. Informal phone consultation with [facility] neurologist, Dr. Martinez. PROCEDURES: None. DIAGNOSTIC IMAGING STUDIES: CT HEAD 08/21/2016, Impression: CT findings suspicious for subacute posterior left MCA distribution infarct. There is parietal region cortical and subcortical hypodensity with subtle effacement, no evidence of hemorrhage or mass effect. Brain MRA unremarkable screening lumbee of Tse. No proximal intracranial large artery flow-limiting stenosis, occlusion or filling defect. No intracranial vertebrobasilar insufficiency and distal internal carotid artery is patent. Brain MRI on 08/22/2016, a late subacute infarct of the left lateral temporal occipital region with petechial hemorrhage. Details of that IMPRESSION: 1. A large ovoid left temporal occipital lesions measuring 47 x 36 x 22 mm. This lesion shows T2 hyperintensity with mild local swelling and edema. Central heterogeneous hypotensive signal is present, especially notable on the grade echo sequence consistent with petechial hemorrhage. Please note, when the neurologist at [facility] reviewed the MRI she felt that this was reflected greater blood than just particular hemorrhage. Neck MRA 08/22/2016: prominent stenosis in the region of the left cervical carotid bifurcation, left ICA origin stenosis measures about 60%. Carotid ultrasound 08/21/2016: On the left there is moderate atherosclerotic plaque about the bulb diffusely, the left bulb and proximal ICA of left is consistent with greater than 70% stenosis. The mid ICA is consistent with 50-60 % estimated stenosis in the distal ICA consistent with less than 50% estimated stenosis. No hemodynamically significant stenosis is identified on the right, mild calcific plaque. ECHOCARDIOGRAM 08/22/16 Overal LV systolic function normal . EF 65-70% Mild increase left atrial volume index. Mild mitral regur. Moderatly abnormal R heart pressure w/ RVSP 60mm. Bubble study negative LABORATORY DIAGNOSIS: Admission CBC: White count 11, hemoglobin 13.1, hematocrit 38.6, platelets 237, 000. On discharge is essentially unchanged with a white count of 10.6. Chemistries notable for a BUN and creatinine of 60 at 1.6. This is compared with the BUN and creatinine when she was last here in March of 2016, of 25 at 1.2, glycosylated hemoglobin was 8.5 for an estimated glucose average of 197. Troponin was less than 0.04. TSH was 0.48. Cholesterol panel, total cholesterol 111, LDL 49, HDL 45, and triglycerides 87. A UA was unremarkable. BRIEF HOSPITAL COURSE BY PROBLEMS: 1. The patient is an 86-year-old woman who presented to the emergency room on a having noted word finding difficulties already 4 days prior on Thursday. Of note, she is already on aspirin and a statin, and she does have known left carotid stenosis which on a fall MRA of the neck demonstrated approximately 40% stenosis at [place] per Dr. Vieira. On the day that she noticed the word finding difficulty she did have a suspicion that this could be a stroke, it is unclear why she did not seek attention until 4 days later. Brain imaging did demonstrate a subacute stroke of the lateral temporal occipital region. Initially the patient had Plavix added to the aspirin. In evaluating possible causes of the stroke as again noted she does have known carotid stenosis and neck imaging was repeted w/ L ICA origin stenosis ~ 60%. Additionally EKG demonstrated new atrial flutter. The imaging of the brain was sent to the neurologist at [facility] and in reviewing it she felt the area of hemorrhage around the stroke area was more significant than just petechial and recommended that anticoagulation for the new atrial flutter not be resuming for a full month. Dr. Martinez of [facility] indicated to only send the patient out with full dose aspirin (325 mg for a full month, then to repeat the CT of the head to evaluate the hemorrhagic area and if it was stable and improved, then to start anticoagulation for the atrial fibrillation and to go back to the baby aspirin for the stenosis. She indicated that Plavix would not be discontinued at this time. She recommended only use aspirin would be for the carotid stenosis. The patient also will need an outpatient referral for speech therapy. She has no other deficits. Her speech deficit per the patient is unchanged since Thursday when this started and is only occasional word-finding difficulty. There are no motor deficits. Additionally, her statin was increased to full dose to 40 mg. of atorvastatin. 2. New atrial flutter. She did not have an uncontrolled rate. She is already on a beta rebecca and this will continue. Part of the evaluation for causes included an echocardiogram which demonstrated no significant valvular dysfunction and no wall motion abnormalities. Troponin was unremarkable and TSH is within a normal range on her home levothyroxine. she does have sleep apnea and an RVSP of 60mm as above. She does wear her CPAP nightly (and did so in hospital as well) 3. Acute kidney injury. When the patient was last seen here approximately 6 months ago, her BUN and creatinine were 25 and 1.2 and on presentation this time she had a BUN of 60 and a creatinine of 1.6 with a corresponding GFR of approximately 31. The only major change in the patient's medications were that she had an increased Lasix dose. She left here in March with 40 mg daily dose and apparently is now also taking 40 mg in the morning and 20 mg mid day. Additionally, she is on lisinopril. It is unclear whether the patient at some point was on both an ARB and lisinopril, but in the pharmacist review of the medication list from Dr. Espitia's office it appears she is only on lisinopril. The patient was instructed to not be taking the combination of ARB and an TAMMY inhibitor if she was indeed and to only resume the lisinopril, which she can resume tomorrow. Following IV hydration, her creatinine was already beginning to improve. She is to not resume her Lasix until Dr. Espitia reevaluates her renal function . (In reviewing records, evidently Lasix increased was for diastolic dysfunction and history of volume overload.) 4. Diabetes mellitus type 2. At home the patient is on 30 units of Lantus daily. She reports that she has not had episodes of hypoglycemia or severe hyperglycemia at home. Given the reduced GFR, she only was given 15 of Lantus, which is half of her home dose and actually has a glucose of 61, which was a recheck of 45. The patient was asymptomatic. She is advised to only take 20 units this evening and she can resume her home dose only if she has morning glucoses over 130. Once her renal function returns to her baseline , likely her 30 unit dose will be safe with no hypoglycemia. 5. Hypertension. The patient's blood pressure was with a systolic of the upper 170s to near 100. She is 4 days past stroke and may have permissive hypertension. Initially she was resumed on her clonidine and metoprolol so that she would not have any rebound hypertension. At the time of discharge, she can resume her home dose of lisinopril and as above, she should not be taking both an ARB and lisinopril. FOLLOWUP: The patient is to followup with Dr. Espitia next week. 1. She will have to recheck her renal function to evaluate whether she can resume her Lasix. 2. She needs a referral for speech therapy. 3. She should as above, be on aspirin full dose for 1 month at 325 mg and then have a repeat CT to evaluate the hemorrhagic region surrounding the stroke and then have a discussion with the patient regarding which form of anticoagulation she can use for her stroke prevention for her new atrial fibrillation. At that point ASA should be reduced to 81mg 4. Ensure she continues to have aflutter rate controlled on her beta rebecca ( rate was 70's here on her home metoprolol dose) DISCHARGE MEDICATIONS: The change in medications includes: 1. Increase in her aspirin dose from 81 mg. to 325 mg daily for 1 month until the repeat CT as above and then resume baby aspirin when she initiates anticoagulation for atrial fibrillation. 2. Atorvastatin increased to 40 mg daily for acute stroke. 3. Clonidine 0.1 mg. 1 in the a.m., 2 in the p.m. 4. Lasix. She is to hold off on that until Dr. Espitia's reevaluates her renal function. 5. Lantus 20 units each evening and only to resume her 30 unit dose if she does not have any hypoglycemia on 20 units. 6. Levothyroxine 88 mcg. once daily. 7. Lisinopril. The patient can resume 20 mg. once daily. 8. Metoprolol 50 mg twice daily. 9. Nystatin powder topical if needed. 10. Oxycodone 5 mg. 1 twice daily if needed for back pain. 11. Ranitidine 150 mg twice daily for GERD. 12. Tizanidine 4 mg orally 3 times daily as needed for back pain or spasm. 13. Trazodone 50 mg. 1 at bedtime as needed for insomnia. 14. Cholecalciferol 2000 units once daily. 15. Multivitamin 1 daily. PHYSICAL EXAMINATION ON THE DAY OF DISCHARGE: VITAL SIGNS: She is afebrile 36.8. Blood pressure 176/69 and 186/108, respiratory rate 18, oxygen saturation 99% on room air. GENERAL: The patient is a very pleasant elderly female who is up and about in her room. She is alert, oriented, appropriate. She answers questions appropriately and is visibly frustrated at times and closes her eyes and squeezes them shut while she tries to think of a word. She generally only has the word finding difficulties when she is trying to describe something in detail. When she is asked to label items in the room for the most part she is able to come up with the word. She was not able to say the word stethoscope, although she could say what it was for, when she was trying to think of the word pill box she also was struggling and it varies which words she is not able to come up with. There is no actual dysarthria. Her pupils are equal. Extraocular movements are intact. Her face is symmetric. Her tongue is midline. NECK: Notable for a 2+ bruit on the left. CARDIAC: Heart is an irregularly irregular, S1, S2 with a rate of approximately 80. No appreciable murmur. She has no lower extremity edema. ABDOMEN: Generous, is soft, nontender, nondistended. 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 JOB #: [id number] EXT JOB #:[id number] [facility]ITALAlice
== END 2016-08-22 17:05 | disposition home or self-care (01) | DRG 65 ==
LOC: ED 13:04 → MS 15:41
PROVIDERS: ADMIT Nurse Practitioner; ATTEND Nurse Practitioner
DX: I61.9 Nontraumatic intracerebral hemorrhage, unspecified (principal); I63.9 Cerebral infarction, unspecified; R47.01 Aphasia; R29.701 NIHSS score 1; I48.92 Unspecified atrial flutter; I50.9 Heart failure, unspecified; N17.9 Acute kidney failure, unspecified; I50.30 Unspecified diastolic (congestive) heart failure; I65.22 Occlusion and stenosis of left carotid artery; R47.1 Dysarthria and anarthria; E86.9 Volume depletion, unspecified; I11.0 Hypertensive heart disease with heart failure; I48.91 Unspecified atrial fibrillation; I25.119 Atherosclerotic heart disease of native coronary artery with unspecified angina pectoris; G47.33 Obstructive sleep apnea (adult) (pediatric); E11.9 Type 2 diabetes mellitus without complications; E78.5 Hyperlipidemia, unspecified; E03.9 Hypothyroidism, unspecified; K21.9 Gastro-esophageal reflux disease without esophagitis; M79.7 Fibromyalgia; M54.5 Low back pain; G89.29 Other chronic pain; Z66 Do not resuscitate; Z86.718 Personal history of other venous thrombosis and embolism; Z79.4 Long term (current) use of insulin; Z79.82 Long term (current) use of aspirin
CPT/HCPCS: 36415; 70450; 70544; 70547; 70551; 80048; 80053; 80061; 81001; 81003; 83036; 83690; 84443; 84484; 85025; 87086; 93005; 93010; 93306; 93880; 99284; 99285

== ENCOUNTER 2016-08-28 05:19 | Outpatient (CLI) | payer MEDICARE, OTHER | END 2016-08-28 05:20 | disposition EMS.NT | LOC: EMS 05:19 | PROVIDERS: ATTEND Surgery | DX: R41.0 Disorientation, unspecified (principal); E16.2 Hypoglycemia, unspecified ==

== ENCOUNTER 2016-09-22 13:51 | Outpatient (CLI) | payer MEDICARE, OTHER ==
--- NOTE | 2016-09-23 18:55 | CT Report ---
NONCONTRAST HEAD CT: 09/22/2016 CLINICAL HISTORY: Followup CDA. COMPARISON: 08/21/[address] TECHNIQUE: Noncontrast head CT was done at 5 x 5 mm intervals with axial and coronal reconstructions . In accordance with CT protocol optimization, one or more of the following dose reduction techniques w ere utilized for this exam: automated exposure control, adjustment of mA and/or KV based on patient size, or use of iterative reconstructive technique. FINDINGS: A 3.4 x 2.6 x 2.0 cm ring-shaped hypodense lesion is noted in the left posterior parietal lobe. This lesion appears to be slightly smaller as compared to preceding exam dated 08/21/2016, and preceding exam. This lesion measured 3.8 x 2.9 cm. This has an unusual configuration for a prior i nfarct. CT exam of 08/22/2016 was much more characteristic including petechial hemorrhage. Better d emarcation of this infarct is seen on today's exam as compared to preceding exam. Cerebral ventricles are normal. No extraaxial fluid collections are seen. No hemorrhage is noted on today's exam. The cerebellar hemispheres appear normal. IMPRESSION: A 2.6 X 3.4 X 2.0 CM OLD INFARCT IS NOTED IN THE LEFT POSTERIOR PARIETAL/OCCIPITAL LOBE. THIS INFARCT APPEARS TO BE BETTER DEMARCATED ON TODAY'S EXAM WITH THE OVERALL SIZE OF INVOLVEMENT A PPEARING SLIGHTLY REDUCED COMPARED TO 08/21/2016. JOB #: [id number] EXT JOB #:[id number]
== END 2016-09-22 13:52 | disposition home or self-care (01) ==
LOC: DI 13:51
PROVIDERS: ATTEND Internal Medicine
DX: I63.9 Cerebral infarction, unspecified (principal)
CPT/HCPCS: 70450

== ENCOUNTER 2016-09-24 15:31 | Outpatient (CLI) | payer MEDICARE, OTHER ==
--- NOTE | 2016-09-25 19:25 | XRAY Report ---
RIGHT ANKLE, THREE VIEWS: 09/24/2016 CLINICAL HISTORY: Increased pain and edema. FINDINGS: Soft tissue swelling is noted especially about the lateral aspect of the right ankle. No significant arthritic change is seen in the right ankle. Moderate-sized plantar calcaneal spur is noted. Mild disuse osteoporosis is seen. This especially involves the distal tibia and medial malleolus. Recommend repeat right ankle x-ray be obtained in 3 months to further confirmed a benign origin, especially of the areas of radiolucency in the distal tibia/ medial malleolus. Prominent vascular calcification is seen in the posterior tibial artery. IMPRESSION: 1. MILD SOFT TISSUE SWELLING IS NOTED ABOUT THE LATERAL ASPECT OF THE RIGHT ANKLE. 2. 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 THERE IS EXAGGERATED RADIOLUCENCY PROBABLY RELATED TO THE OSTEOPOROSIS IN THE DISTAL TIBIA AND MEDIAL MALLEOLUS. RECOMMEND REPEAT X-RAY OF THE RIGHT ANKLE IN 3 MONTHS TO FURTHER CONFIRM THIS BENIGN ETIOLOGY. 3. MODERATE-SIZED PLANTAR CALCANEAL SPUR. 4. PROMINENCE VASCULAR CALCIFICATION IS SEEN IN THE POSTERIOR TIBIAL ARTERY. JOB #: [id number] EXT JOB #: [id number] MTDAlice
== END 2016-09-24 15:32 | disposition home or self-care (01) ==
LOC: DI 15:31
PROVIDERS: ATTEND Podiatrist
DX: R22.41 Localized swelling, mass and lump, right lower limb (principal); M81.8 Other osteoporosis without current pathological fracture; M77.31 Calcaneal spur, right foot; I70.201 Unspecified atherosclerosis of native arteries of extremities, right leg

== ENCOUNTER 2016-10-06 13:10 | Outpatient (CLI) | payer MEDICARE, OTHER ==
[2016-10-06 13:48] LABS: INR 1.7 (0.8-1.2); PT - PROTHROMBIN TIME 19.7 secs (9.9-12.6)
== END 2016-10-06 13:11 | disposition home or self-care (01) ==
LOC: LAB 13:10
PROVIDERS: ATTEND Internal Medicine Cardiovascular Disease
DX: I48.91 Unspecified atrial fibrillation (principal); Z79.899 Other long term (current) drug therapy
CPT/HCPCS: 36415; 85610

== ENCOUNTER 2016-10-10 17:02 | Outpatient (CLI) | payer MEDICARE, OTHER | END 2016-10-10 17:03 | disposition home or self-care (01) | LOC: LAB 17:02 | PROVIDERS: ATTEND Internal Medicine Cardiovascular Disease | DX: I48.91 Unspecified atrial fibrillation (principal) | CPT/HCPCS: 85610 ==

== ENCOUNTER 2016-10-16 16:39 | Outpatient (CLI) | payer MEDICARE, OTHER | END 2016-10-16 16:40 | disposition home or self-care (01) | LOC: LAB 16:39 | PROVIDERS: ATTEND Internal Medicine Cardiovascular Disease | DX: I48.91 Unspecified atrial fibrillation (principal); Z79.899 Other long term (current) drug therapy | CPT/HCPCS: 85610 ==

== ENCOUNTER 2016-10-23 16:46 | Outpatient (CLI) | payer MEDICARE, OTHER | END 2016-10-23 16:47 | disposition home or self-care (01) | LOC: LAB 16:46 | PROVIDERS: ATTEND Internal Medicine Cardiovascular Disease | DX: I48.91 Unspecified atrial fibrillation (principal); Z79.899 Other long term (current) drug therapy | CPT/HCPCS: 85610 ==

== ENCOUNTER 2016-11-05 16:31 | Outpatient (CLI) | payer MEDICARE, OTHER | END 2016-11-05 16:32 | disposition home or self-care (01) | LOC: LAB 16:31 | PROVIDERS: ATTEND Internal Medicine Cardiovascular Disease | DX: I48.91 Unspecified atrial fibrillation (principal); Z79.899 Other long term (current) drug therapy | CPT/HCPCS: 85610 ==

== ENCOUNTER 2016-11-20 15:54 | Outpatient (CLI) | payer MEDICARE, OTHER | END 2016-11-20 15:55 | disposition home or self-care (01) | LOC: LAB 15:54 | PROVIDERS: ATTEND Internal Medicine Cardiovascular Disease | DX: I48.91 Unspecified atrial fibrillation (principal); Z79.899 Other long term (current) drug therapy | CPT/HCPCS: 36415; 82306; 85610 ==

== ENCOUNTER 2016-11-27 16:08 | Outpatient (CLI) | payer MEDICARE, OTHER | END 2016-11-27 16:09 | disposition home or self-care (01) | LOC: LAB 16:08 | PROVIDERS: ATTEND Internal Medicine Cardiovascular Disease | DX: I48.91 Unspecified atrial fibrillation (principal); Z79.899 Other long term (current) drug therapy | CPT/HCPCS: 85610 ==

== ENCOUNTER 2016-11-27 16:11 | Outpatient (CLI) | payer MEDICARE, OTHER ==
--- NOTE | 2016-11-28 09:39 | XRAY Report ---
THREE VIEW RIGHT ANKLE: 11/27/2016 CLINICAL INDICATION: Pain. COMPARISON: 09/24/2016. FINDINGS: AP, lateral, and oblique views of the right ankle demonstrate stable osteoarthritic change s. Soft tissue swelling has increased. There is no evidence of acute fracture. No periosteal reaction is seen. Vascular calcifications are again noted. IMPRESSION: INCREASED SOFT TISSUE SWELLING. NO EVIDENCE OF FRACTURE. JOB #: [id number] EXT JOB #:[id number]
== END 2016-11-27 16:12 | disposition home or self-care (01) ==
LOC: DI 16:11
PROVIDERS: ATTEND Podiatrist
DX: M25.571 Pain in right ankle and joints of right foot (principal); M79.89 Other specified soft tissue disorders; Z85.79 Personal history of other malignant neoplasms of lymphoid, hematopoietic and related tissues; I48.91 Unspecified atrial fibrillation; Z79.899 Other long term (current) drug therapy
CPT/HCPCS: 85610

== ENCOUNTER 2016-12-11 17:13 | Outpatient (CLI) | payer MEDICARE, OTHER | END 2016-12-11 17:14 | disposition home or self-care (01) | LOC: LAB 17:13 | PROVIDERS: ATTEND Internal Medicine Cardiovascular Disease | DX: I48.91 Unspecified atrial fibrillation (principal); Z79.899 Other long term (current) drug therapy | CPT/HCPCS: 85610 ==

== ENCOUNTER 2017-01-01 20:57 | Outpatient (CLI) | payer MEDICARE, OTHER | END 2017-01-01 20:58 | disposition home or self-care (01) | LOC: LAB 20:57 | PROVIDERS: ATTEND Internal Medicine Cardiovascular Disease | DX: I48.91 Unspecified atrial fibrillation (principal); Z79.899 Other long term (current) drug therapy | CPT/HCPCS: 85610 ==

== ENCOUNTER 2017-01-29 17:52 | Outpatient (CLI) | payer MEDICARE, OTHER | END 2017-01-29 17:53 | disposition home or self-care (01) | LOC: LAB 17:52 | PROVIDERS: ATTEND Internal Medicine Cardiovascular Disease | DX: I48.91 Unspecified atrial fibrillation (principal); Z79.899 Other long term (current) drug therapy | CPT/HCPCS: 85610 ==

== ENCOUNTER 2017-02-17 18:54 | Outpatient (CLI) | payer MEDICARE, OTHER ==
[2017-02-17 19:45] LABS: HEMOGLOBIN A1C 1.14 g/dL
== END 2017-02-17 18:55 | disposition home or self-care (01) ==
LOC: LAB 18:54
PROVIDERS: ATTEND Internal Medicine Cardiovascular Disease
DX: Z79.4 Long term (current) use of insulin (principal)
CPT/HCPCS: 36415; 83036; 85610

== ENCOUNTER 2017-03-11 18:12 | Outpatient (CLI) | payer MEDICARE, OTHER ==
--- NOTE | 2017-03-13 17:20 | Ultrasound Report ---
EXAM: Bilateral Lower Extremity Arterial Doppler Ultrasound EXAM DATE: 03/11/2017 09:21 PM. CLINICAL HISTORY: Peripheral vascular disease. History of hypertension, smoking, diabetes, hyperlipid emia, and CVA. COMPARISON: None. TECHNIQUE: Real-time sonographic vascular imaging was performed by the fitter mechanic, utilizing color-f low, Doppler flow, and spectral analysis. Multiple customer account representative static images were saved for review . 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 Biphasic/Triphasic waveform. PSFA: PSV 58 cm/sec. Biphasic waveform. MSFA: PSV 66 cm/sec. Biphasic waveform. DSFA: PSV 70 cm/sec. Biphasic waveform. PFA: PSV 60 cm/sec. Biphasic waveform. POP: PSV 66 cm/sec. Biphasic waveform. CINDY: PSV 16 cm/sec. Monophasic waveform. SUPERINTENDENT TRACK: PSV 45 cm/sec. Biphasic waveform. ? PER: PSV 7 cm/sec. Monophasic waveform. DPA: PSV 41 cm/sec. Biphasic waveform. Left Leg: BOX TRUCK OWNER OPERATOR: PSV 88 cm/sec. Triphasic waveform. PSFA: PSV 67 cm/sec. Biphasic waveform. MSFA: PSV 73 cm/sec. Biphasic waveform. DSFA: PSV 86 cm/sec. Biphasic waveform. PFA: PSV 61 cm/sec. Biphasic waveform. POP: PSV 34 cm/sec. Biphasic waveform. CINDY: PSV 37 cm/sec. Biphasic waveform. SUPERINTENDENT TRACK: PSV 25 cm/sec. Monophasic waveform. ? PER: PSV 8 cm/sec. Monophasic waveform. DPA: PSV 73 cm/sec. Biphasic waveform. IMPRESSION: 1. Low velocity flow with biphasic and monophasic waveforms throughout the bilateral lower extremitie s from the proximal superficial femoral arteries to the ankles suggesting proximal stenosis. 2. No evidence for hemodynamically significant focal stenosis in the bilateral lower extremities. 3. At least 2 vessel flow to the ankles bilaterally through the anterior tibial and posterior tibial arteries. The peroneal arteries are not well seen bilaterally. [facility] Referring Provider Line: [phone] SITE ID: [id number]
== END 2017-03-11 18:13 | disposition home or self-care (01) ==
LOC: DI 18:12
PROVIDERS: ATTEND Podiatrist
DX: I73.9 Peripheral vascular disease, unspecified (principal); I48.91 Unspecified atrial fibrillation; Z79.899 Other long term (current) drug therapy
CPT/HCPCS: 85610; 93925

== ENCOUNTER 2017-03-25 16:53 | Outpatient (CLI) | payer MEDICARE, OTHER | END 2017-03-25 16:54 | disposition home or self-care (01) | LOC: LAB 16:53 | PROVIDERS: ATTEND Internal Medicine Cardiovascular Disease | DX: I48.91 Unspecified atrial fibrillation (principal); Z79.899 Other long term (current) drug therapy | CPT/HCPCS: 85610 ==

== ENCOUNTER 2017-04-09 16:10 | Outpatient (CLI) | payer MEDICARE, OTHER | END 2017-04-09 16:11 | disposition home or self-care (01) | LOC: LAB 16:10 | PROVIDERS: ATTEND Internal Medicine Cardiovascular Disease | DX: I48.91 Unspecified atrial fibrillation (principal); Z79.899 Other long term (current) drug therapy | CPT/HCPCS: 85610 ==

== ENCOUNTER 2017-04-16 17:35 | Outpatient (CLI) | payer MEDICARE, OTHER | END 2017-04-16 17:36 | disposition home or self-care (01) | LOC: LAB 17:35 | PROVIDERS: ATTEND Internal Medicine Cardiovascular Disease | DX: I48.91 Unspecified atrial fibrillation (principal); Z79.899 Other long term (current) drug therapy | CPT/HCPCS: 85610 ==

== ENCOUNTER 2017-04-28 18:45 | Outpatient (CLI) | payer MEDICARE, OTHER | END 2017-04-28 18:46 | disposition home or self-care (01) | LOC: LAB 18:45 | PROVIDERS: ATTEND Internal Medicine Cardiovascular Disease | DX: I48.91 Unspecified atrial fibrillation (principal); Z79.899 Other long term (current) drug therapy | CPT/HCPCS: 85610 ==

== ENCOUNTER 2017-05-18 09:16 | Outpatient (CLI) | payer MEDICARE, OTHER | END 2017-05-18 09:17 | disposition home or self-care (01) | LOC: LAB 09:16 | PROVIDERS: ATTEND Internal Medicine Cardiovascular Disease | DX: I48.91 Unspecified atrial fibrillation (principal); Z79.899 Other long term (current) drug therapy | CPT/HCPCS: 85610 ==

== ENCOUNTER 2017-05-25 14:58 | Outpatient (CLI) | payer MEDICARE, OTHER | END 2017-05-25 14:59 | disposition home or self-care (01) | LOC: LAB 14:58 | PROVIDERS: ATTEND Internal Medicine Cardiovascular Disease | DX: I48.91 Unspecified atrial fibrillation (principal); Z79.899 Other long term (current) drug therapy | CPT/HCPCS: 85610 ==

== ENCOUNTER 2017-05-28 09:47 | Outpatient (CLI) | payer MEDICARE, OTHER | END 2017-05-28 09:48 | disposition home or self-care (01) | LOC: SC 09:47 | PROVIDERS: ATTEND Nurse Practitioner Family | DX: G47.33 Obstructive sleep apnea (adult) (pediatric) (principal) | CPT/HCPCS: 99214; G0463; 99212 ==

== ENCOUNTER 2017-06-01 11:40 | Outpatient (CLI) | payer MEDICARE, OTHER | END 2017-06-01 11:41 | disposition home or self-care (01) | LOC: LAB 11:40 | PROVIDERS: ATTEND Internal Medicine Cardiovascular Disease | DX: I48.91 Unspecified atrial fibrillation (principal); Z79.899 Other long term (current) drug therapy | CPT/HCPCS: 85610 ==

== ENCOUNTER 2017-06-10 17:08 | Outpatient (CLI) | payer MEDICARE, OTHER | END 2017-06-10 17:09 | disposition home or self-care (01) | LOC: LAB 17:08 | PROVIDERS: ATTEND Orthopaedic Surgery Orthopaedic Surgery of the Spine | DX: Z01.812 Encounter for preprocedural laboratory examination (principal); I48.91 Unspecified atrial fibrillation; Z79.899 Other long term (current) drug therapy | CPT/HCPCS: 85610 ==

== ENCOUNTER 2017-06-19 09:59 | Outpatient (CLI) | payer MEDICARE, OTHER ==
[2017-06-19 17:48] LABS: BASOPHILS # (AUTO) 0.1 10^3/uL (0.0-0.1); BASOPHILS % (AUTO) 0.7 %; EOSINOPHILS # (AUTO) 0.5 10^3/uL (0.0-0.7); EOSINOPHILS % (AUTO) 5.2 %; HGB - HEMOGLOBIN 13.4 g/dL (12.0-16.0); LYMPHOCYTES # (AUTO) 2.2 10^3/uL (1.5-3.5); LYMPHOCYTES % (AUTO) 22.2 %; MEAN CORPUSCULAR HEMOGLOBIN 27.3 pg (27.0-31.0); MEAN CORPUSCULAR HGB CONC 31.8 g/dL (32.0-36.0); MEAN CORPUSCULAR VOLUME 85.6 fL (81.0-99.0); MEAN PLATELET VOLUME 8.4 fL (7.9-10.8); MONOCYTES # (AUTO) 0.9 10^3/uL (0.0-1.0); MONOCYTES % (AUTO) 9.2 %; NEUTROPHILS # (AUTO) 6.2 10^3/uL (1.5-6.6); NEUTROPHILS % (AUTO) 62.7 %; PLT - PLATELET COUNT 202 10^3/uL (130-450); RED BLOOD COUNT 4.93 10^6/uL (4.20-5.40); RED CELL DISTRIBUTION WIDTH 17.1 % (12.0-15.0); WHITE BLOOD COUNT 9.8 x10^3/uL (4.8-10.8)
[2017-06-19 18:01] LABS: ALBUMIN 4.2 g/dL (3.2-5.5); ALBUMIN/GLOBULIN RATIO 1.7 (1.0-2.2); BILIRUBIN,TOTAL 0.6 mg/dL (0.2-1.0); CALCIUM 9.9 mg/dL (8.5-10.3); CREATININE 1.4 mg/dL (0.4-1.0); TOTAL PROTEIN 6.7 g/dL (6.7-8.2)
[2017-06-19 18:05] LABS: HB2 TOTAL 14.2 g/dL; HEMOGLOBIN A1C 1.27 g/dL; HEMOGLOBIN A1C % 10.3 % (4.6-6.2)
[2017-06-19 18:16] LABS: INR 2.3 (0.8-1.2); PT - PROTHROMBIN TIME 24.7 secs (9.9-12.6)
== END 2017-06-19 10:00 | disposition home or self-care (01) ==
LOC: LAB.F 09:59
PROVIDERS: ATTEND Internal Medicine
DX: I50.9 Heart failure, unspecified (principal); E11.51 Type 2 diabetes mellitus with diabetic peripheral angiopathy without gangrene; E03.9 Hypothyroidism, unspecified; Z79.01 Long term (current) use of anticoagulants
CPT/HCPCS: 36415; 80053; 83036; 84443; 85025; 85610

== ENCOUNTER 2017-06-22 18:11 | Outpatient (CLI) | payer MEDICARE, OTHER | END 2017-06-22 18:12 | disposition home or self-care (01) | LOC: LAB 18:11 | PROVIDERS: ATTEND Internal Medicine Cardiovascular Disease | DX: I48.91 Unspecified atrial fibrillation (principal); Z79.899 Other long term (current) drug therapy | CPT/HCPCS: 85610 ==

== ENCOUNTER 2017-07-14 18:47 | Outpatient (CLI) | payer MEDICARE, OTHER | END 2017-07-14 18:48 | disposition home or self-care (01) | LOC: LAB 18:47 | PROVIDERS: ATTEND Internal Medicine Cardiovascular Disease | DX: I48.91 Unspecified atrial fibrillation (principal); Z79.899 Other long term (current) drug therapy | CPT/HCPCS: 85610 ==

== ENCOUNTER 2017-08-12 18:12 | Outpatient (CLI) | payer MEDICARE, OTHER | END 2017-08-12 18:13 | disposition home or self-care (01) | LOC: LAB 18:12 | PROVIDERS: ATTEND Internal Medicine Cardiovascular Disease | DX: I48.91 Unspecified atrial fibrillation (principal); Z79.899 Other long term (current) drug therapy | CPT/HCPCS: 85610 ==

== ENCOUNTER 2017-09-10 12:34 | Outpatient (CLI) | payer MEDICARE, OTHER | END 2017-09-10 12:35 | disposition home or self-care (01) | LOC: LAB 12:34 | PROVIDERS: ATTEND Internal Medicine Cardiovascular Disease | DX: I48.91 Unspecified atrial fibrillation (principal); Z79.899 Other long term (current) drug therapy | CPT/HCPCS: 85610 ==

== ENCOUNTER 2017-09-24 20:04 | Outpatient (CLI) | payer MEDICARE, OTHER | END 2017-09-24 20:05 | disposition home or self-care (01) | LOC: LAB 20:04 | PROVIDERS: ATTEND Internal Medicine Cardiovascular Disease | DX: I48.91 Unspecified atrial fibrillation (principal); Z79.899 Other long term (current) drug therapy | CPT/HCPCS: 85610 ==

== ENCOUNTER 2017-10-05 11:25 | Outpatient (CLI) | payer MEDICARE, OTHER | END 2017-10-05 11:26 | disposition home or self-care (01) | LOC: LAB 11:25 | PROVIDERS: ATTEND Internal Medicine Cardiovascular Disease | DX: I48.91 Unspecified atrial fibrillation (principal); Z79.899 Other long term (current) drug therapy | CPT/HCPCS: 85610 ==

== ENCOUNTER 2017-10-20 18:35 | Outpatient (CLI) | payer MEDICARE, OTHER | END 2017-10-20 18:36 | disposition home or self-care (01) | LOC: LAB 18:35 | PROVIDERS: ATTEND Internal Medicine Cardiovascular Disease | DX: I48.91 Unspecified atrial fibrillation (principal); Z79.899 Other long term (current) drug therapy | CPT/HCPCS: 85610 ==

== ENCOUNTER 2017-11-09 10:31 | Outpatient (CLI) | payer MEDICARE, OTHER ==
[2017-11-09 11:45] LABS: HB2 TOTAL 12.2 g/dL; HEMOGLOBIN A1C 0.96 g/dL; HEMOGLOBIN A1C % 9.4 % (4.6-6.2)
[2017-11-09 11:59] LABS: THYROID STIMULATING HORMONE 1.92 uIU/mL (0.34-5.60)
[2017-11-09 12:01] LABS: FREE T4 (FREE THYROXINE) 1.05 ng/dL (0.58-1.64)
== END 2017-11-09 10:32 | disposition home or self-care (01) ==
LOC: LAB 10:31
PROVIDERS: ATTEND Internal Medicine Cardiovascular Disease
DX: I48.91 Unspecified atrial fibrillation (principal); E11.65 Type 2 diabetes mellitus with hyperglycemia; Z79.899 Other long term (current) drug therapy; Z79.4 Long term (current) use of insulin; E03.9 Hypothyroidism, unspecified
CPT/HCPCS: 36415; 83036; 84439; 84443; 85610

== ENCOUNTER 2017-12-01 18:52 | Outpatient (CLI) | payer MEDICARE, OTHER | END 2017-12-01 18:53 | disposition home or self-care (01) | LOC: LAB 18:52 | PROVIDERS: ATTEND Internal Medicine Cardiovascular Disease | DX: I48.91 Unspecified atrial fibrillation (principal); Z79.899 Other long term (current) drug therapy | CPT/HCPCS: 85610 ==

== ENCOUNTER 2017-12-22 14:19 | Outpatient (CLI) | payer MEDICARE, OTHER | END 2017-12-22 14:20 | disposition home or self-care (01) | LOC: LAB 14:19 | PROVIDERS: ATTEND Internal Medicine Cardiovascular Disease | DX: I48.91 Unspecified atrial fibrillation (principal); Z79.899 Other long term (current) drug therapy | CPT/HCPCS: 85610 ==

== ENCOUNTER 2017-12-30 07:24 | Outpatient (CLI) | payer MEDICARE, OTHER ==
[2017-12-30 10:58] LABS: HGB - HEMOGLOBIN 12.6 g/dL (12.0-16.0); MEAN CORPUSCULAR HEMOGLOBIN 29.3 pg (27.0-31.0); MEAN CORPUSCULAR HGB CONC 33.7 g/dL (32.0-36.0); MEAN CORPUSCULAR VOLUME 86.8 fL (81.0-99.0); RED BLOOD COUNT 4.31 10^6/uL (4.20-5.40); WHITE BLOOD COUNT 10.7 x10^3/uL (4.8-10.8)
[2017-12-30 11:14] LABS: ALBUMIN 4.1 g/dL (3.2-5.5); ALBUMIN/GLOBULIN RATIO 1.6 (1.0-2.2); ALKALINE PHOSPHATASE 63 IU/L (42-121); ALT ALANINE AMINOTRANSFERASE 30 IU/L (10-60); AST ASPARTATE AMINOTRANSFERASE 30 IU/L (10-42); BILIRUBIN,TOTAL 0.8 mg/dL (0.2-1.0); BUN - BLOOD UREA NITROGEN 42 mg/dL (6-20); CALCIUM 9.6 mg/dL (8.5-10.3); CARBON DIOXIDE - CO2 32 mmol/L (21-32); CHLORIDE 98 mmol/L (101-111); CHOLESTEROL 123 mg/dL; CREATININE 1.3 mg/dL (0.4-1.0); GFR - MDRD 39 (>89); GLUCOSE 98 mg/dL (70-100); HDL CHOLESTEROL 61 mg/dL; LDL CHOLESTEROL,CALCULATED 43 mg/dL; LDL/HDL RATIO 0.7 (<4.4); SODIUM 136 mmol/L (135-145); TOTAL PROTEIN 6.7 g/dL (6.7-8.2); VLDL CHOLESTEROL 19 mg/dL
[2017-12-30 11:27] LABS: HB2 TOTAL 13.4 g/dL; HEMOGLOBIN A1C 0.99 g/dL; HEMOGLOBIN A1C % 8.9 % (4.6-6.2)
== END 2017-12-30 07:25 | disposition home or self-care (01) ==
LOC: LAB.F 07:24
PROVIDERS: ATTEND Internal Medicine
DX: E11.51 Type 2 diabetes mellitus with diabetic peripheral angiopathy without gangrene (principal); E78.5 Hyperlipidemia, unspecified; E03.9 Hypothyroidism, unspecified; N28.9 Disorder of kidney and ureter, unspecified
CPT/HCPCS: 36415; 80053; 80061; 83036; 83721; 84443; 85027

== ENCOUNTER 2018-01-25 13:49 | Outpatient (CLI) | payer MEDICARE, OTHER ==
[2018-01-25 15:07] LABS: PT - PROTHROMBIN TIME 61.3 secs (9.9-12.6)
[2018-01-25 15:18] LABS: INR 5.6 (0.8-1.2)
== END 2018-01-25 13:50 | disposition home or self-care (01) ==
LOC: LAB 13:49
PROVIDERS: ATTEND Internal Medicine Cardiovascular Disease
DX: Z51.81 Encounter for therapeutic drug level monitoring (principal); Z79.01 Long term (current) use of anticoagulants; Z79.899 Other long term (current) drug therapy; I48.91 Unspecified atrial fibrillation
CPT/HCPCS: 36415; 85610

== ENCOUNTER 2018-01-27 11:33 | Outpatient (CLI) | payer MEDICARE, OTHER | END 2018-01-27 11:34 | disposition home or self-care (01) | LOC: LAB 11:33 | PROVIDERS: ATTEND Internal Medicine Cardiovascular Disease | DX: I48.91 Unspecified atrial fibrillation (principal); Z79.01 Long term (current) use of anticoagulants | CPT/HCPCS: 85610 ==

== ENCOUNTER 2018-02-03 10:53 | Outpatient (CLI) | payer MEDICARE, OTHER | END 2018-02-03 10:54 | disposition home or self-care (01) | LOC: LAB 10:53 | PROVIDERS: ATTEND Internal Medicine Cardiovascular Disease | DX: I48.91 Unspecified atrial fibrillation (principal); Z79.899 Other long term (current) drug therapy | CPT/HCPCS: 85610 ==

== ENCOUNTER 2018-02-18 11:55 | Outpatient (CLI) | payer MEDICARE, OTHER ==
[2018-02-18 12:30] LABS: INR 2.2 (0.8-1.2)
== END 2018-02-18 11:56 | disposition home or self-care (01) ==
LOC: LAB 11:55
PROVIDERS: ATTEND Internal Medicine Cardiovascular Disease
DX: I48.91 Unspecified atrial fibrillation (principal)
CPT/HCPCS: 36415; 85610

== ENCOUNTER 2018-04-14 13:42 | Outpatient (CLI) | payer MEDICARE, OTHER | END 2018-04-14 13:43 | disposition home or self-care (01) | LOC: LAB 13:42 | PROVIDERS: ATTEND Internal Medicine Cardiovascular Disease | DX: I48.91 Unspecified atrial fibrillation (principal); Z79.899 Other long term (current) drug therapy | CPT/HCPCS: 85610 ==

== ENCOUNTER 2018-04-14 16:31 | Outpatient (CLI) | payer MEDICARE, OTHER | END 2018-04-14 23:59 | disposition home or self-care (01) | LOC: LAB.R 16:31 | PROVIDERS: ATTEND Physician Assistant Medical | DX: R09.02 Hypoxemia (principal); R04.2 Hemoptysis | CPT/HCPCS: 81599; 87070; 87205 ==

== ENCOUNTER 2018-04-14 19:03 | Outpatient (CLI) | payer MEDICARE, OTHER ==
--- NOTE | 2018-04-14 20:02 | CT Report ---
Reason: OXYGEN DESATURATION,HEMOPTYSIS Procedure Date: 04/14/2018 Accession Number: [id number] / [id number] Procedure: CT - Chest W/O CPT Code: FULL RESULT: EXAM: CT CHEST EXAM DATE: 04/14/2018 07:20 PM. CLINICAL HISTORY: OXYGEN DESATURATION,HEMOPTYSIS. COMPARISONS: None. TECHNIQUE: Routine helical CT imaging was performed through the chest. IV contrast: None. Reconstructions: Coronal and sagittal. In accordance with CT protocol optimization, one or more of the following dose reduction techniques were utilized for this exam: automated exposure control, adjustment of mA and/or KV based on patient size, or use of iterative reconstructive technique. FINDINGS: Lungs/Pleura: Patchy areas of yang lobar geographic bronchocentric consolidative and groundglass opacities. No suspicious mass. No pleural effusions. No endobronchial or endotracheal lesion. Mediastinum: Imaged portions of the thyroid are grossly unremarkable. Thoracic aorta and main pulmonary artery are normal caliber. Heart size is within normal limits. Severe three-vessel coronary artery calcifications. No pericardial effusion. Lymph Nodes: 1.1 cm right paratracheal node. Bones: No suspicious osseous lesions. Visualized chest wall is grossly unremarkable. Partially Imaged Upper Abdomen: Status post cholecystectomy. IMPRESSION: Yang lobar geographic areas of consolidation, most consistent with multifocal pneumonia. Alveolar hemorrhage is a consideration. [facility] The call report notification system was initiated by Dr. Harrison Venegas at 19:44 hrs on 04/14/18. The above findings were discussed with Jade Quintero by Dr. Harrison Venegas at 20:01 hrs on 04/14/18.
== END 2018-04-14 19:04 | disposition home or self-care (01) ==
LOC: DI 19:03
PROVIDERS: ATTEND Physician Assistant Medical
DX: J18.1 Lobar pneumonia, unspecified organism (principal); R04.2 Hemoptysis; R09.02 Hypoxemia; I48.91 Unspecified atrial fibrillation; Z79.899 Other long term (current) drug therapy
CPT/HCPCS: 71250; 85610

== ENCOUNTER 2018-04-19 12:14 | Outpatient (CLI) | payer MEDICARE, OTHER | END 2018-04-19 12:15 | disposition home or self-care (01) | LOC: LAB 12:14 | PROVIDERS: ATTEND Internal Medicine Cardiovascular Disease | DX: I48.91 Unspecified atrial fibrillation (principal); Z79.899 Other long term (current) drug therapy | CPT/HCPCS: 85610 ==

== ENCOUNTER 2018-04-26 12:05 | Outpatient (CLI) | payer MEDICARE, OTHER | END 2018-04-26 12:06 | disposition home or self-care (01) | LOC: LAB 12:05 | PROVIDERS: ATTEND Internal Medicine Cardiovascular Disease | DX: I48.91 Unspecified atrial fibrillation (principal); Z79.01 Long term (current) use of anticoagulants | CPT/HCPCS: 85610 ==

== ENCOUNTER 2018-05-06 11:07 | Outpatient (CLI) | payer MEDICARE, OTHER | END 2018-05-06 11:08 | disposition home or self-care (01) | LOC: LAB 11:07 | PROVIDERS: ATTEND Internal Medicine Cardiovascular Disease | DX: I48.91 Unspecified atrial fibrillation (principal); Z79.899 Other long term (current) drug therapy | CPT/HCPCS: 85610 ==

== ENCOUNTER 2018-05-17 11:47 | Outpatient (CLI) | payer MEDICARE, OTHER | END 2018-05-17 11:48 | disposition home or self-care (01) | LOC: LAB 11:47 | PROVIDERS: ATTEND Internal Medicine Cardiovascular Disease | DX: I48.91 Unspecified atrial fibrillation (principal); Z79.899 Other long term (current) drug therapy | CPT/HCPCS: 85610 ==

== ENCOUNTER 2018-05-28 14:21 | Outpatient (CLI) | payer MEDICARE, OTHER ==
[2018-05-28 20:19] LABS: HB2 TOTAL 9.9 g/dL; HEMOGLOBIN A1C 0.7 g/dL; HEMOGLOBIN A1C % 8.6 % (4.6-6.2)
== END 2018-05-28 14:22 | disposition home or self-care (01) ==
LOC: LAB 14:21
PROVIDERS: ATTEND Internal Medicine Cardiovascular Disease
DX: I48.91 Unspecified atrial fibrillation (principal); E11.65 Type 2 diabetes mellitus with hyperglycemia; Z79.4 Long term (current) use of insulin; Z79.899 Other long term (current) drug therapy
CPT/HCPCS: 36415; 83036; 85610

== ENCOUNTER 2018-06-07 12:23 | Outpatient (CLI) | payer MEDICARE, OTHER | END 2018-06-07 12:24 | disposition home or self-care (01) | LOC: LAB 12:23 | PROVIDERS: ATTEND Internal Medicine Cardiovascular Disease | DX: I48.91 Unspecified atrial fibrillation (principal); Z79.899 Other long term (current) drug therapy | CPT/HCPCS: 85610 ==

== ENCOUNTER 2018-06-14 15:41 | Outpatient (CLI) | payer MEDICARE, OTHER | END 2018-06-14 15:42 | disposition home or self-care (01) | LOC: LAB 15:41 | PROVIDERS: ATTEND Internal Medicine Cardiovascular Disease | DX: I48.91 Unspecified atrial fibrillation (principal); Z79.899 Other long term (current) drug therapy | CPT/HCPCS: 85610 ==

== ENCOUNTER 2018-06-21 14:48 | Outpatient (CLI) | payer MEDICARE, OTHER | END 2018-06-21 14:49 | disposition home or self-care (01) | LOC: LAB 14:48 | PROVIDERS: ATTEND Internal Medicine Cardiovascular Disease | DX: I48.91 Unspecified atrial fibrillation (principal); Z79.899 Other long term (current) drug therapy | CPT/HCPCS: 85610 ==

== ENCOUNTER 2018-07-01 10:43 | Outpatient (CLI) | payer MEDICARE, OTHER | END 2018-07-01 10:44 | disposition home or self-care (01) | LOC: LAB 10:43 | PROVIDERS: ATTEND Internal Medicine Cardiovascular Disease | DX: I48.91 Unspecified atrial fibrillation (principal); Z79.899 Other long term (current) drug therapy | CPT/HCPCS: 85610 ==

== ENCOUNTER 2018-07-15 11:20 | Outpatient (CLI) | payer MEDICARE, OTHER | END 2018-07-15 11:21 | disposition home or self-care (01) | LOC: LAB 11:20 | PROVIDERS: ATTEND Internal Medicine Cardiovascular Disease | DX: I48.91 Unspecified atrial fibrillation (principal); Z79.01 Long term (current) use of anticoagulants | CPT/HCPCS: 85610 ==

== ENCOUNTER 2018-08-12 12:15 | Outpatient (CLI) | payer MEDICARE, OTHER | END 2018-08-12 12:16 | disposition home or self-care (01) | LOC: LAB 12:15 | PROVIDERS: ATTEND Internal Medicine Cardiovascular Disease | DX: I48.91 Unspecified atrial fibrillation (principal); Z79.899 Other long term (current) drug therapy | CPT/HCPCS: 85610 ==

== ENCOUNTER 2018-08-21 04:27 | Outpatient (CLI) | payer MEDICARE, OTHER | END 2018-08-21 04:28 | disposition critical access hospital (66) | LOC: EMS 04:27 | PROVIDERS: ATTEND Surgery | DX: S01.01XA Laceration without foreign body of scalp, initial encounter (principal); W01.198A Fall on same level from slipping, tripping and stumbling with subsequent striking against other object, initial encounter; Y92.003 Bedroom of unspecified non-institutional (private) residence as the place of occurrence of the external cause ==

== ENCOUNTER 2018-08-21 04:43 | Emergency (ER) | payer MEDICARE, OTHER ==
--- NOTE | 2018-08-21 04:43 | ED Physician Documentation ---
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 Does not think she lost consciousness; says she suddenly found herself on floor but does not feel like she was waking up from unconsciousness. She denies any pain, although she has head injury per medic report. Patient takes warfarin. blood sugar 226 by medics check en route to ED Review of Systems Constitutional: reports: Reviewed and negative Eyes: reports: Reviewed and negative Cardiac: reports: Reviewed and negative Respiratory: reports: Reviewed and negative GI: reports: Reviewed and negative Skin: reports: Other (posterior scalp hematoma) Musculoskeletal: reports: Reviewed and negative Neurologic: reports: Head injury. denies: Generalized weakness, Focal weakness, Numbness, Confused, Headache, LOC PD PAST MEDICAL HISTORY - Past Medical History Past Medical History: Yes Cardiovascular: Hypertension, High cholesterol Endocrine/Autoimmune: Type 1 diabetes, HyPOthyroidism - Present Medications Home Medications: Ambulatory Orders Medication Instructions Recorded Confirmed Insulin Glargine [Lantus] 20 unit SUBQ QPM 04/26/13 08/21/16 Levothyroxine [Synthroid] 88 mcg PO QDAC 04/26/13 08/21/18 traZODone [Desyrel] 75 mg PO HS PRN 04/26/13 08/21/18 Aspirin [Paco Chewable Aspirin] 81 mg PO DAILY 10/04/15 08/21/18 Lisinopril 10 mg PO DAILY 03/22/16 08/21/18 Metoprolol Tartrate 50 mg PO BID 03/22/16 08/21/18 cloNIDine [Catapres] 0.1 mg PO DAILY 03/22/16 08/21/18 cloNIDine [Catapres] 0.2 mg PO QPM 03/22/16 08/21/18 Atorvastatin Calcium 40 mg PO QPM #0 08/22/16 08/21/18 - Allergies Allergies/Adverse Reactions: Allergies Allergy/AdvReac Type Severity Reaction Status Date / Time pregabalin [From Lyrica] Allergy Severe Hives Verified 08/21/16 13:10 Penicillins AdvReac Intermediate Hives Verified 08/21/16 13:10 iv contract Allergy Severe Hives Uncoded 08/21/16 13:10 PD ED PE NORMAL - Vitals Vital signs reviewed: Yes - General General: Alert and oriented X 3, No acute distress, Well developed/nourished - HEENT HEENT: PERRL, EOMI, Moist mucous membranes - Neck Neck: No bony TTP - Cardiac Cardiac: No murmur - Respiratory Respiratory: No respiratory distress, Clear bilaterally - Abdomen Abdomen: Soft, Non tender, Non distended - Back Back: No spinal TTP - Derm Derm: Normal color, Warm and dry - Extremities Extremities: No deformity, No tenderness to palpate, Normal ROM s pain, No edema - Neuro Neuro: Alert and oriented X 3, consulting technical director 2-12 intact, No motor deficit, No sensory deficit, Normal speech, Other (occasional difficulty with word finding) Eye Opening: Spontaneous Motor: Obeys Commands Verbal: Oriented GCS Score: 15 PD ED PE EXPANDED - HEENT HEENT Visual: 1 - swelling (mild swelling c/w subcutaneous hematoma. there is scant blood from tiny abraded area at apex of swelling), tenderness - Cardiac Cardiac: Irregularly irregular Results - Vitals Vitals: Vital Signs - 24 hr 08/21/18 08/21/18 04:49 06:59 Temperature 36.8 C Heart Rate 97 84 Respiratory 18 20 Rate Blood Pressure 171/88 H 168/85 H O2 Saturation 94 94 Oxygen O2 Source [With Activity] Room air O2 Source Room air - EKG (time done) No standard instances Rate: Rate (enter#) (98) Rhythm: Atrial fibrillation [place]: LAD Ischemia: Normal ST segments, Q waves (V1-V3) Other comments: Other comments (PVC) - Labs Labs: Laboratory Tests 08/21/18 08/21/18 08/21/18 04:55 04:55 04:55 WBC 15.0 H RBC 4.09 L Hgb 11.0 L Hct 34.7 L MCV 84.9 MCH 27.0 MCHC 31.8 L RDW 19.5 H Plt Count 199 MPV 7.9 Neut # (Auto) 11.5 H Lymph # (Auto) 1.4 L Wayne # (Auto) 1.3 H Eos # (Auto) 0.7 Baso # (Auto) 0.1 Absolute Nucleated RBC 0.00 Nucleated RBC % 0.0 PT 52.1 H INR 4.7 H* APTT 45.3 H Sodium 136 Potassium 5.0 Chloride 103 Carbon Dioxide 24 Anion Gap 9.0 BUN 53 H Creatinine 1.7 H Estimated GFR (MDRD) 28 L Glucose 243 H Calcium 9.8 Troponin I 08/21/18 04:55 WBC RBC Hgb Hct MCV MCH MCHC RDW Plt Count MPV Neut # (Auto) Lymph # (Auto) Wayne # (Auto) Eos # (Auto) Baso # (Auto) Absolute Nucleated RBC Nucleated RBC % PT INR APTT Sodium Potassium Chloride Carbon Dioxide Anion Gap BUN Creatinine Estimated GFR (MDRD) Glucose Calcium Troponin I 0.04 - Rads (name of study) CT head Radiology: Prelim report reviewed, See rad report PD MEDICAL DECISION MAKING - ED course Complexity details: reviewed results, re-evaluated patient, considered differential, d/w patient ED course: Remained asymptomatic during ED stay Departure - Departure Disposition: 01 Home, Self Care Clinical Impression: Fall, Head injury Condition: Good Instructions: ED Contusion Scalp, ED Head Injury Closed Sleep Mon Comments: You warfarin level is a little higher than it should be on today's blood tests. I recommend that you skip your next dose and then resume the following day as prescribed. Discharge Date/Time: 08/21/18 07:26
[2018-08-21 05:02] LABS: BASOPHILS # (AUTO) 0.1 10^3/uL (0.0-0.1); BASOPHILS % (AUTO) 0.5 %; EOSINOPHILS # (AUTO) 0.7 10^3/uL (0.0-0.7); EOSINOPHILS % (AUTO) 4.9 %; LYMPHOCYTES # (AUTO) 1.4 10^3/uL (1.5-3.5); LYMPHOCYTES % (AUTO) 9.4 %; MEAN CORPUSCULAR HGB CONC 31.8 g/dL (32.0-36.0); MEAN CORPUSCULAR VOLUME 84.9 fL (81.0-99.0); MEAN PLATELET VOLUME 7.9 fL (7.9-10.8); MONOCYTES # (AUTO) 1.3 10^3/uL (0.0-1.0); MONOCYTES % (AUTO) 8.9 %; NEUTROPHILS # (AUTO) 11.5 10^3/uL (1.5-6.6); NEUTROPHILS % (AUTO) 76.3 %; PLT - PLATELET COUNT 199 10^3/uL (130-450); RED BLOOD COUNT 4.09 10^6/uL (4.20-5.40); RED CELL DISTRIBUTION WIDTH 19.5 % (12.0-15.0)
[2018-08-21 05:09] LABS: CALCIUM 9.8 mg/dL (8.5-10.3); CREATININE 1.7 mg/dL (0.4-1.0)
[2018-08-21 05:12] LABS: PT - PROTHROMBIN TIME 52.1 secs (9.9-12.6)
[2018-08-21 05:31] LABS: PARTIAL THROMBOPLASTIN TIME 45.3 secs (24.9-33.3)
[2018-08-21 05:32] LABS: INR 4.7 (0.8-1.2)
--- NOTE | 2018-08-21 05:35 | CT Report ---
Reason: fall, head injury, on warfarin Procedure Date: 08/21/2018 Accession Number: [id number] / [id number] Procedure: CT - HEAD WO CPT Code: FULL RESULT: EXAM: CT HEAD EXAM DATE: 08/21/2018 05:10 AM. CLINICAL HISTORY: Fall, head injury, on warfarin. COMPARISON: HEAD W/O 09/22/2016 2:16 PM BRAIN W/O 08/22/2016 10:00 AM. TECHNIQUE: Multiaxial CT images were obtained from the foramen magnum to the vertex. Reformats: Sagittal and coronal. IV contrast: None. In accordance with CT protocol optimization, one or more of the following dose reduction techniques were utilized for this exam: automated exposure control, adjustment of mA and/or KV based on patient size, or use of iterative reconstructive technique. 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 This has a more hypodense and well defined appearance than on the prior study with more extensive volume loss in this region now present. No hemorrhage or CT evidence of interval infarct. Extraaxial Spaces: Normal for age. No subdural or epidural collections identified. Ventricles: Normal in size and position. Sinuses and Orbits: Imaged paranasal sinuses, orbits, and mastoids show no significant abnormality. Bones: No evidence of fracture or calvarial defect. Other: None. IMPRESSION: 1. Expected evolution of left MCA territory infarct. 2. No acute intracranial process identified. RADIA
[2018-08-21] MEDS ORDERED: TETANUS/DIPHTHERIA/PERTUSSIS 0.5 ML SYRINGE IM ONE (05:58)
[2018-08-21 07:00] VITALS: BP 168/85
== END 2018-08-21 07:26 | disposition home or self-care (01) ==
LOC: EDUNIT# → ED 04:43
DX: S00.03XA Contusion of scalp, initial encounter (principal); S00.01XA Abrasion of scalp, initial encounter; W18.30XA Fall on same level, unspecified, initial encounter; Y93.01 Activity, walking, marching and hiking; Y92.003 Bedroom of unspecified non-institutional (private) residence as the place of occurrence of the external cause; Z23 Encounter for immunization; I48.91 Unspecified atrial fibrillation; Z79.01 Long term (current) use of anticoagulants; I49.3 Ventricular premature depolarization; I10 Essential (primary) hypertension; E10.9 Type 1 diabetes mellitus without complications; Z79.4 Long term (current) use of insulin; Z79.82 Long term (current) use of aspirin
CPT/HCPCS: 36415; 70450; 80048; 84484; 85025; 85610; 85730; 90471; 93005; 99283

== ENCOUNTER 2018-08-23 17:27 | Outpatient (CLI) | payer MEDICARE, OTHER ==
[2018-08-23 18:16] LABS: PT - PROTHROMBIN TIME 77.5 secs (9.9-12.6)
== END 2018-08-23 17:28 | disposition home or self-care (01) ==
LOC: LAB 17:27
PROVIDERS: ATTEND Internal Medicine Cardiovascular Disease
DX: I48.91 Unspecified atrial fibrillation (principal); Z79.899 Other long term (current) drug therapy
CPT/HCPCS: 36415; 85610

== ENCOUNTER 2018-08-24 13:23 | Outpatient (CLI) | payer MEDICARE, OTHER ==
[2018-08-24 14:07] LABS: PT - PROTHROMBIN TIME 54.5 secs (9.9-12.6)
[2018-08-24 14:11] LABS: INR 4.9 (0.8-1.2)
== END 2018-08-24 13:24 | disposition home or self-care (01) ==
LOC: LAB 13:23
PROVIDERS: ATTEND Internal Medicine Cardiovascular Disease
DX: I48.91 Unspecified atrial fibrillation (principal); Z79.899 Other long term (current) drug therapy
CPT/HCPCS: 36415; 85610

== ENCOUNTER 2018-08-26 09:59 | Outpatient (CLI) | payer MEDICARE, OTHER | END 2018-08-26 10:00 | disposition home or self-care (01) | LOC: LAB 09:59 | PROVIDERS: ATTEND Internal Medicine Cardiovascular Disease | DX: I48.91 Unspecified atrial fibrillation (principal); Z79.899 Other long term (current) drug therapy | CPT/HCPCS: 85610 ==

== ENCOUNTER 2018-09-02 13:34 | Outpatient (CLI) | payer MEDICARE, OTHER | END 2018-09-02 13:35 | disposition home or self-care (01) | LOC: LAB 13:34 | PROVIDERS: ATTEND Internal Medicine Cardiovascular Disease | DX: I48.91 Unspecified atrial fibrillation (principal); Z79.899 Other long term (current) drug therapy | CPT/HCPCS: 85610 ==

== ENCOUNTER 2018-09-30 13:32 | Outpatient (CLI) | payer MEDICARE, OTHER | END 2018-09-30 13:33 | disposition home or self-care (01) | LOC: LAB 13:32 | PROVIDERS: ATTEND Internal Medicine Cardiovascular Disease | DX: I48.91 Unspecified atrial fibrillation (principal); Z79.899 Other long term (current) drug therapy | CPT/HCPCS: 85610 ==

== ENCOUNTER 2018-10-15 10:01 | Outpatient (CLI) | payer MEDICARE, OTHER | END 2018-10-15 10:02 | disposition home or self-care (01) | LOC: LAB 10:01 | PROVIDERS: ATTEND Internal Medicine Cardiovascular Disease | DX: I48.91 Unspecified atrial fibrillation (principal); Z79.899 Other long term (current) drug therapy | CPT/HCPCS: 85610 ==

== ENCOUNTER 2018-11-04 | Outpatient (CLI) | payer MEDICARE, OTHER | END 2018-11-04 12:03 | disposition home or self-care (01) | DX: I48.91 Unspecified atrial fibrillation (principal); Z79.899 Other long term (current) drug therapy | CPT/HCPCS: 85610 ==

== ENCOUNTER 2018-11-15 18:23 | Outpatient (CLI) | payer MEDICARE, OTHER ==
[2018-11-15 19:07] LABS: ALBUMIN 4.2 g/dL (3.2-5.5); PHOSPHORUS 3.9 mg/dL (2.5-4.6)
== END 2018-11-15 18:24 | disposition home or self-care (01) ==
LOC: LAB 18:23
PROVIDERS: ATTEND Psychiatry & Neurology Psychiatry
DX: N18.4 Chronic kidney disease, stage 4 (severe) (principal); I48.91 Unspecified atrial fibrillation; Z79.899 Other long term (current) drug therapy
CPT/HCPCS: 36415; 80069; 85610

== ENCOUNTER 2018-11-26 11:39 | Outpatient (CLI) | payer MEDICARE, OTHER ==
[2018-11-26 12:38] LABS: PT - PROTHROMBIN TIME 44.7 secs (9.9-12.6)
[2018-11-26 13:22] LABS: HB2 TOTAL 11.9 g/dL; HEMOGLOBIN A1C 0.89 g/dL
== END 2018-11-26 11:40 | disposition home or self-care (01) ==
LOC: LAB 11:39
PROVIDERS: ATTEND Internal Medicine Cardiovascular Disease
DX: I48.91 Unspecified atrial fibrillation (principal); Z79.899 Other long term (current) drug therapy; E11.9 Type 2 diabetes mellitus without complications; Z79.4 Long term (current) use of insulin
CPT/HCPCS: 36415; 83036; 85610

== ENCOUNTER 2018-12-02 13:54 | Outpatient (CLI) | payer MEDICARE, OTHER | END 2018-12-02 13:55 | disposition home or self-care (01) | LOC: LAB 13:54 | PROVIDERS: ATTEND Internal Medicine Cardiovascular Disease | DX: I48.91 Unspecified atrial fibrillation (principal); Z79.899 Other long term (current) drug therapy | CPT/HCPCS: 85610 ==

== ENCOUNTER 2018-12-09 17:04 | Outpatient (CLI) | payer MEDICARE, OTHER | END 2018-12-09 17:05 | disposition home or self-care (01) | LOC: LAB 17:04 | PROVIDERS: ATTEND Internal Medicine Cardiovascular Disease | DX: I48.91 Unspecified atrial fibrillation (principal); Z79.899 Other long term (current) drug therapy | CPT/HCPCS: 85610 ==

== ENCOUNTER 2018-12-16 13:38 | Outpatient (CLI) | payer MEDICARE, OTHER ==
[2018-12-16 14:04] LABS: ALBUMIN 4.1 g/dL (3.2-5.5); CALCIUM 9.9 mg/dL (8.5-10.3); CREATININE 1.6 mg/dL (0.4-1.0); INR 2.3 (0.8-1.2); PHOSPHORUS 3.7 mg/dL (2.5-4.6); PT - PROTHROMBIN TIME 25.6 secs (9.9-12.6)
== END 2018-12-16 13:39 | disposition home or self-care (01) ==
LOC: LAB 13:38
PROVIDERS: ATTEND Internal Medicine Cardiovascular Disease
DX: I48.91 Unspecified atrial fibrillation (principal); Z79.01 Long term (current) use of anticoagulants; N17.9 Acute kidney failure, unspecified
CPT/HCPCS: 36415; 80069; 85610

== ENCOUNTER 2018-12-30 12:18 | Outpatient (CLI) | payer MEDICARE, OTHER | END 2018-12-30 12:19 | disposition home or self-care (01) | LOC: LAB 12:18 | PROVIDERS: ATTEND Internal Medicine Cardiovascular Disease | DX: I48.91 Unspecified atrial fibrillation (principal); Z79.899 Other long term (current) drug therapy; I10 Essential (primary) hypertension; E78.2 Mixed hyperlipidemia; E55.9 Vitamin D deficiency, unspecified; E03.9 Hypothyroidism, unspecified | CPT/HCPCS: 85610 ==

== ENCOUNTER 2019-01-19 13:42 | Outpatient (CLI) | payer MEDICARE, OTHER ==
[2019-01-19 14:07] LABS: CALCIUM 9.6 mg/dL (8.5-10.3); CREATININE 1.4 mg/dL (0.4-1.0); PHOSPHORUS 3.7 mg/dL (2.5-4.6)
== END 2019-01-19 13:43 | disposition home or self-care (01) ==
LOC: LAB 13:42
PROVIDERS: ATTEND Internal Medicine Nephrology
DX: N17.9 Acute kidney failure, unspecified (principal)
CPT/HCPCS: 36415; 80069

== ENCOUNTER 2019-01-31 11:46 | Outpatient (CLI) | payer MEDICARE, OTHER | END 2019-01-31 11:47 | disposition home or self-care (01) | LOC: LAB 11:46 | PROVIDERS: ATTEND Internal Medicine Cardiovascular Disease | DX: Z79.899 Other long term (current) drug therapy (principal); I48.91 Unspecified atrial fibrillation | CPT/HCPCS: 85610 ==

== ENCOUNTER 2019-02-14 15:03 | Outpatient (CLI) | payer MEDICARE, OTHER | END 2019-02-14 15:04 | disposition home or self-care (01) | LOC: LAB 15:03 | PROVIDERS: ATTEND Internal Medicine Cardiovascular Disease | DX: Z79.01 Long term (current) use of anticoagulants (principal); I48.91 Unspecified atrial fibrillation | CPT/HCPCS: 85610 ==

== ENCOUNTER 2019-03-17 18:04 | Emergency (ER) | payer MEDICARE, OTHER ==
[2019-03-17 18:46] LABS: BASOPHILS # (AUTO) 0.1 10^3/uL (0.0-0.1); BASOPHILS % (AUTO) 0.9 %; EOSINOPHILS # (AUTO) 0.9 10^3/uL (0.0-0.7); EOSINOPHILS % (AUTO) 8.6 %; HGB - HEMOGLOBIN 12.4 g/dL (12.0-16.0); LYMPHOCYTES # (AUTO) 2.4 10^3/uL (1.5-3.5); LYMPHOCYTES % (AUTO) 22.3 %; MEAN CORPUSCULAR HEMOGLOBIN 29.1 pg (27.0-31.0); MEAN CORPUSCULAR HGB CONC 31.7 g/dL (32.0-36.0); MEAN CORPUSCULAR VOLUME 91.8 fL (81.0-99.0); MEAN PLATELET VOLUME 9.7 fL (7.9-10.8); MONOCYTES # (AUTO) 1.1 10^3/uL (0.0-1.0); MONOCYTES % (AUTO) 10.6 %; NEUTROPHILS % (AUTO) 57.2 %; PLT - PLATELET COUNT 218 10^3/uL (130-450); RED BLOOD COUNT 4.26 10^6/uL (4.20-5.40); RED CELL DISTRIBUTION WIDTH 14.5 % (12.0-15.0); WHITE BLOOD COUNT 10.6 x10^3/uL (4.8-10.8)
[2019-03-17 19:00] LABS: ALBUMIN 4.1 g/dL (3.2-5.5); ALBUMIN/GLOBULIN RATIO 1.4 (1.0-2.2); BILIRUBIN,TOTAL 0.6 mg/dL (0.2-1.0); CALCIUM 9.7 mg/dL (8.5-10.3); CREATININE 1.1 mg/dL (0.4-1.0); TOTAL PROTEIN 7.1 g/dL (6.7-8.2)
[2019-03-17] MEDS ORDERED: INSULIN REGULAR HUMAN 100 UNIT/1 ML 10 ML MDV IVP STA ×2 (19:01→19:42)
[2019-03-17] MEDS ORDERED: SODIUM CHLORIDE 0.9% 1,000 ML IV ONE (19:01)
--- NOTE | 2019-03-17 19:05 | ED Physician Documentation ---
History of Present Illness - Stated complaint Stated Complaint: BLOOD SUGAR HIGH - Chief complaint Chief Complaint: General - History obtained from History obtained from: Patient, Family (daughter) - History of Present Illness Timing: Other (88-year-old woman with diabetes, recent UTI, somewhat resistant Enterobacter, off of antibiotics for a couple of weeks. For the last few days has had very elevated blood sugars up into the 4 and 500s with sleepiness. She otherwise has no complaints. No respiratory issues.) Review of Systems Constitutional: reports: Fatigue. 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: Hysterectomy, Oophrectomy HEENT: Cataracts, Tonsil/Adenoidectomy - Present Medications Home Medications: Ambulatory Orders Medication Instructions Recorded Confirmed Insulin Glargine [Lantus] 20 unit SUBQ QPM 04/26/13 08/21/16 Levothyroxine [Synthroid] 88 mcg PO QDAC 04/26/13 08/21/18 traZODone [Desyrel] 75 mg PO HS PRN 04/26/13 08/21/18 Aspirin [Paco Chewable Aspirin] 81 mg PO DAILY 10/04/15 08/21/18 Lisinopril 10 mg PO DAILY 03/22/16 08/21/18 Metoprolol Tartrate 50 mg PO BID 03/22/16 08/21/18 cloNIDine [Catapres] 0.1 mg PO DAILY 03/22/16 08/21/18 cloNIDine [Catapres] 0.2 mg PO QPM 03/22/16 08/21/18 Atorvastatin Calcium 40 mg PO QPM #0 08/22/16 08/21/18 - Allergies Allergies/Adverse Reactions: Allergies Allergy/AdvReac Type Severity Reaction Status Date / Time pregabalin [From Lyrica] Allergy Severe Hives Verified 08/21/16 13:10 Penicillins AdvReac Intermediate Hives Verified 08/21/16 13:10 iv contract Allergy Severe Hives Uncoded 08/21/16 13:10 - Social History Does the pt smoke?: No Smoking Status: Never smoker Does the pt drink ETOH?: No Does the pt have substance abuse?: No - Immunizations Immunizations are current?: Yes - POLST Patient has POLST: Yes PD ED PE NORMAL - Vitals Vital signs reviewed: Yes - General General: Alert and oriented X 3 (Alert and oriented but slightly somnolent) - HEENT HEENT: PERRL, EOMI - Neck Neck: Supple, no meningeal sign, No bony TTP - Cardiac Cardiac: RRR, No murmur - Respiratory Respiratory: No respiratory distress, Clear bilaterally - Abdomen Abdomen: Non tender - Extremities Extremities: No edema - Neuro Neuro: Alert and oriented X 3, Normal speech Results - Vitals Vitals: Vital Signs - 24 hr 03/17/19 03/17/19 18:08 20:12 Temperature 36.7 C Heart Rate 62 93 Respiratory 16 18 Rate Blood Pressure 182/88 H 164/67 H O2 Saturation 99 93 Oxygen O2 Source [With Activity] Room air O2 Source Room air - Labs Labs: Laboratory Tests 03/17/19 03/17/19 03/17/19 18:41 18:41 18:48 WBC 10.6 RBC 4.26 Hgb 12.4 Hct 39.1 MCV 91.8 MCH 29.1 MCHC 31.7 L RDW 14.5 Plt Count 218 MPV 9.7 Neut # (Auto) 6.0 Lymph # (Auto) 2.4 [place] # (Auto) 1.1 H Eos # (Auto) 0.9 H Baso # (Auto) 0.1 Absolute Nucleated RBC 0.00 Nucleated RBC % 0.0 PT 27.5 H INR 2.5 H Sodium 134 L Potassium 4.3 Chloride 89 L Carbon Dioxide 35 H Anion Gap 10.0 BUN 34 H Creatinine 1.1 H Estimated GFR (MDRD) 47 L Glucose 337 H POC Whole Bld Glucose Calcium 9.7 Total Bilirubin 0.6 AST 24 ALT 24 Alkaline Phosphatase 71 Total Protein 7.1 Albumin 4.1 Globulin 3.0 Albumin/Globulin Ratio 1.4 Lipase 58 H Urine Color Urine Clarity Urine pH Ur Specific [place] Urine Protein Urine Glucose (UA) Urine Ketones Urine Occult Blood Urine Nitrite Urine Bilirubin Urine Urobilinogen Ur Leukocyte Esterase Urine RBC Urine WBC Ur Squamous Epith Cells Urine Bacteria Ur Microscopic Review Urine Culture Comments 03/17/19 03/17/19 03/17/19 18:50 19:41 20:35 WBC RBC Hgb Hct MCV MCH MCHC RDW Plt Count MPV Neut # (Auto) Lymph # (Auto) [place] # (Auto) Eos # (Auto) Baso # (Auto) Absolute Nucleated RBC Nucleated RBC % PT INR Sodium Potassium Chloride Carbon Dioxide Anion Gap BUN Creatinine Estimated GFR (MDRD) Glucose POC Whole Bld Glucose 302 H 222 H Calcium Total Bilirubin AST ALT Alkaline Phosphatase Total Protein Albumin Globulin Albumin/Globulin Ratio Lipase Urine Color YELLOW Urine Clarity CLEAR Urine pH 6.5 Ur Specific [place] 1.010 Urine Protein 30 H Urine Glucose (UA) 500 H Urine Ketones NEGATIVE Urine Occult Blood NEGATIVE Urine Nitrite NEGATIVE Urine Bilirubin NEGATIVE Urine Urobilinogen 0.2 (NORMAL) Ur Leukocyte Esterase NEGATIVE Urine RBC None Seen Urine WBC 0-3 Ur Squamous Epith Cells MOD Squamous H Urine Bacteria Rare Ur Microscopic Review INDICATED Urine Culture Comments NOT INDICATED PD MEDICAL DECISION MAKING - ED course ED course: 88yo woman with a bit of cough, recent UTI and uncontrolled blood sugars. Blood sugar was in the 200s after some IV fluids and insulin. Advised to increase her Lantus a bit pending her follow-up with her manager private appointment. Departure - Departure Disposition: Home, Self Care Clinical Impression: Cough, Adequate anticoagulation on anticoagulant therapy Hyperglycemia due to type 2 diabetes mellitus Qualifiers: Diabetes mellitus manager long term care insulin use: with fdc use Qualified Code(s): E11.65 - Type 2 diabetes mellitus with hyperglycemia Condition: Good Record reviewed to determine appropriate education?: Yes Instructions: Diabetes Type 2 Coping, Diabetes Carbs, ED Hyperglycemia Diabetic Comments: Increase lantus to 10 units starting tomorrow. Call your manager private tomorrow Return if worse. CC records to Reba Morales MD [facility] endocrinology Discharge Date/Time: 03/17/19 20:49
[2019-03-17 19:06] LABS: BILIRUBIN,URINE NEGATIVE (NEGATIVE); GLUCOSE, URINE (UA) 500 mg/dL (NEGATIVE); KETONES,URINE (UA) NEGATIVE (NEGATIVE); LEUKOCYTE ESTERASE, URINE NEGATIVE (NEGATIVE); NITRITE,URINE NEGATIVE (NEGATIVE); OCCULT BLOOD,URINE NEGATIVE (NEGATIVE); PH,URINE 6.5 PH (5.0-7.5); PROTEIN,URINE 30 mg/dL (NEGATIVE); UROBILINOGEN,URINE 0.2 (NORMAL) E.U./dL (NORMAL)
[2019-03-17 19:07] LABS: CLARITY,URINE CLEAR (CLEAR)
[2019-03-17 19:11] LABS: INR 2.5 (0.8-1.2); PT - PROTHROMBIN TIME 27.5 secs (9.9-12.6)
[2019-03-17 19:16] LABS: BACTERIA,URINE Rare /HPF (None Seen); RBC,URINE None Seen /HPF (0-5); SQUAMOUS EPITHELIAL CELL,UR MOD Squamous (<= Few)
--- NOTE | 2019-03-17 20:03 | XRAY Report ---
Reason: Elevated blood sugars without clear etiology Procedure Date: 03/17/2019 Accession Number: [id number] / [id number] Procedure: XR - Chest 2 View X-Ray CPT Code: 23427 Final Report FULL RESULT: EXAM: CHEST RADIOGRAPHY EXAM DATE: 03/17/2019 07:39 PM. CLINICAL HISTORY: Elevated blood sugars without clear etiology. COMPARISON: CHEST 2 VIEW PA/LAT 03/25/2016 7:46 AM. TECHNIQUE: 2 views. FINDINGS: Lungs/Pleura: No focal opacities evident. No pleural effusion. No pneumothorax. Normal volumes. Mediastinum: Borderline heart size. Calcified aortic arch. Other: Mild S-shaped scoliosis. No fractures identified. IMPRESSION: Borderline heart size with no CHF or acute pulmonary abnormality. RADIA
[2019-03-17 20:13] VITALS: BP 164/67
== END 2019-03-17 20:49 | disposition home or self-care (01) ==
LOC: ED 18:04
DX: E11.65 Type 2 diabetes mellitus with hyperglycemia (principal); Z79.4 Long term (current) use of insulin; R05 Cough; I10 Essential (primary) hypertension; E03.9 Hypothyroidism, unspecified; Z79.01 Long term (current) use of anticoagulants; Z79.82 Long term (current) use of aspirin
CPT/HCPCS: 36415; 71046; 80053; 81001; 83690; 85025; 85610; 99283; 99284; J1815; 81003; 87086

== ENCOUNTER 2019-03-26 13:53 | Outpatient (CLI) | payer MEDICARE, OTHER | END 2019-03-26 13:54 | disposition home or self-care (01) | LOC: LAB 13:53 | PROVIDERS: ATTEND Internal Medicine Cardiovascular Disease | DX: Z79.899 Other long term (current) drug therapy (principal); I48.91 Unspecified atrial fibrillation | CPT/HCPCS: 85610 ==

== ENCOUNTER 2019-04-12 11:04 | Outpatient (CLI) | payer MEDICARE, OTHER | END 2019-04-12 11:05 | disposition home or self-care (01) | LOC: LAB 11:04 | PROVIDERS: ATTEND Internal Medicine Cardiovascular Disease | DX: Z79.899 Other long term (current) drug therapy (principal); I48.91 Unspecified atrial fibrillation | CPT/HCPCS: 85610 ==

== ENCOUNTER 2019-04-14 13:16 | Outpatient (CLI) | payer MEDICARE, OTHER ==
[2019-04-14 13:53] LABS: ALBUMIN 4.3 g/dL (3.2-5.5); CALCIUM 9.9 mg/dL (8.5-10.3); PHOSPHORUS 3.3 mg/dL (2.5-4.6)
== END 2019-04-14 13:17 | disposition home or self-care (01) ==
LOC: LAB 13:16
PROVIDERS: ATTEND Internal Medicine Nephrology
DX: N18.3 Chronic kidney disease, stage 3 (moderate) (principal)
CPT/HCPCS: 36415; 80069

== ENCOUNTER 2019-05-26 11:27 | Outpatient (CLI) | payer MEDICARE, OTHER | END 2019-05-26 11:28 | disposition home or self-care (01) | LOC: LAB 11:27 | PROVIDERS: ATTEND Internal Medicine Cardiovascular Disease | DX: I48.91 Unspecified atrial fibrillation (principal); Z79.899 Other long term (current) drug therapy | CPT/HCPCS: 85610 ==

== ENCOUNTER 2019-05-27 14:01 | Outpatient (CLI) | payer MEDICARE, OTHER ==
[2019-05-27 14:29] LABS: CALCIUM 9.7 mg/dL (8.5-10.3); CREATININE 1.2 mg/dL (0.4-1.0)
== END 2019-05-27 14:02 | disposition home or self-care (01) ==
LOC: LAB 14:01
PROVIDERS: ATTEND Internal Medicine Nephrology
DX: N17.9 Acute kidney failure, unspecified (principal)
CPT/HCPCS: 36415; 80069

== ENCOUNTER 2019-06-15 12:06 | Outpatient (CLI) | payer MEDICARE, OTHER | END 2019-06-15 12:07 | disposition home or self-care (01) | LOC: LAB 12:06 | PROVIDERS: ATTEND Internal Medicine Cardiovascular Disease | DX: I48.91 Unspecified atrial fibrillation (principal); Z79.899 Other long term (current) drug therapy | CPT/HCPCS: 85610 ==

== ENCOUNTER 2019-07-10 18:09 | Outpatient (CLI) | payer MEDICARE, OTHER | END 2019-07-10 18:10 | disposition home or self-care (01) | LOC: LAB 18:09 | PROVIDERS: ATTEND Internal Medicine Cardiovascular Disease | DX: I48.91 Unspecified atrial fibrillation (principal) | CPT/HCPCS: 85610 ==

== ENCOUNTER 2019-07-27 10:34 | Outpatient (CLI) | payer MEDICARE, OTHER | END 2019-07-27 10:35 | disposition home or self-care (01) | LOC: LAB 10:34 | PROVIDERS: ATTEND Internal Medicine Cardiovascular Disease | DX: I48.91 Unspecified atrial fibrillation (principal); Z79.899 Other long term (current) drug therapy | CPT/HCPCS: 85610 ==

== ENCOUNTER 2019-08-21 11:54 | Outpatient (CLI) | payer MEDICARE, OTHER | END 2019-08-21 11:55 | disposition EMS.NT | LOC: EMS 11:54 | PROVIDERS: ATTEND Surgery | DX: Z03.89 Encounter for observation for other suspected diseases and conditions ruled out (principal) ==

== ENCOUNTER 2019-08-25 09:40 | Outpatient (CLI) | payer MEDICARE, OTHER ==
--- NOTE | 2019-08-25 11:33 | CONSULTATION NOTE ---
Palliative Care Consultation - Referral Referring Provider: Dr. Sarah Kowalski Time of Visit: 3467-8139 Referral setting: Home Referral Reason: CHF/Afib/LE edema/Advanced Care Planning - Information Sources Records reviewed: Previous records reviewed History/Review of Systems obtained from: Patient Exam limitations: Clinical condition (short term memory impairment) - History of Present Illness Brief History of Present Illness: This is an 89-year-old female who was seen and evaluated today in her home for initial palliative care consultation due to limited ability to leave her home due to deconditioning, lower extremity edema and the setting of atrial fibrillation, diabetes mellitus, and chronic back pain. The patient herself expresses concerns regarding her lower extremities. This is her main concern on examination today. She reports that she has difficulty with ambulation due to pain in her lower extremities. This feels better at rest. She has been seen by dermatology last evaluated August 03, 2019 per reports and was treated for cellulitis with a course of Keflex for 10 days. However, the wound culture showed resistance to keflex and she had allergy testing preformed for amoxicillin and she was started on a 10 day course of amoxicillin on 08/10/2019 that she completed. It was also recommended that she perform bleach soaks daily. The patient is a poor historian and it is is unclear how long she has had difficulty with her lower extremity edema and skin changes. She has mupirocin by her reclining chair that she applies or has a caregiver apply to the open wounds to her lower extremities as needed and this is per dermatology. She has HTN and Afib. She is followed by a doctorate of chiropractic, Dr. Burnett and is presently on Coumadin therapy for her atrial fibrillation. Patient is unclear regarding her last evaluation of her INR therapy. The patient herself reports that she feels as if she has an overall good appetite. But she states that she has been told differently regarding her overall intake. No reported weight loss that she appreciates. She has a caregiver that comes 4 times a week but it is unclear from the patient regarding what tasks are preformed for her. She has chronic back pain and pain to her lower extremities. She is on routine tylenol and tramadol with some reported relief. She reports that her main discomfort is to her lower extremities and when asked to describe the pain further just reports that "it hurts." She is on insulin therapy but is unable to report what her blood glucose readings from her log are today. She reports that she preforms her own insulin injections. She also has macular degeneration and has visual impairments. She is followed by multiple specialists: 1. Dr. Fiona Vieira for cardiology 2. Dr. Larsen for nephrology 3. Dr. Reba Sahu endocrinology Medical/Surgical History - Past Medical History Cardiovascular: reports: Hypertension, High cholesterol, Atrial fibrillation (on coumadin) Respiratory: reports: Sleep apnea, CPAP use Neuro: Other (Mild Cognitive Impairment) Endocrine/Autoimmune: reports: Type 2 diabetes, HyPOthyroidism, Other (Secondary hyperaldosteronism) GI: reports: GERD : reports: Other (CKD stage 3, followed by Dr. 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 She was and . Then she remarried and has been . Her had heart problems and on hospice. She has 5 children. Her oldest daughter, Trudy oversees much of her medical care. The patient has caregivers that come into the home 4 days a week. She lives with her son Rafal in a property that was given to the patient from her father. The patient and her family relocated to [facility] when she was 11 during the great depression. The patient only had one sibling, 1 sister. The patient's daughter, Trudy resides in [place]. Family History - Family History Family History: Mother: , Father: , Sister: Alive and Well Family History Comment/Other: Father at age 90 due to "old age" Mother around 80 years of age and had Parkinson's disease Sister, "breathing problems" Medications/Allergies - Medications Home Medications: Ambulatory Orders Medication Instructions Recorded Confirmed Acetaminophen [Tylenol] 650 mg PO BID 08/25/19 08/25/19 Areds Preservision 1 tab PO BID 08/25/19 Aspirin [Aspirin EC] 81 mg PO DAILY 08/25/19 08/25/19 Atorvastatin Calcium 20 mg PO QPM 08/25/19 08/25/19 Ca/Mag/Zinc 1 tab PO DAILY 08/25/19 Cholecalciferol (Vitamin D3) 2,000 units PO DAILY 08/25/19 08/25/19 [Vitamin D3] Flaxseed Oil 1 cap PO DAILY 08/25/19 08/25/19 Furosemide 60 mg PO DAILY 08/25/19 08/25/19 Insulin Glargine [Lantus Solostar] 8 unit SQ QDBREAKFAST 08/25/19 08/25/19 Insulin Lispro [Humalog] 4 unit SQ BIDAC 08/25/19 08/25/19 Isosorbide Mononitrate ER [Imdur] 120 mg PO DAILY 08/25/19 08/25/19 Levothyroxine [Synthroid] 88 mcg PO DAILY 08/25/19 08/25/19 Lisinopril [Zestril] 20 mg PO DAILY 08/25/19 08/25/19 Metoprolol Tartrate 50 mg PO BID 08/25/19 08/25/19 Multivitamin 1 tab PO DAILY 08/25/19 08/25/19 Mupirocin 1 appful TOP .PRNTOWOUNDS PRN MDD 08/25/19 08/25/19 to LE wounds per derm Sitagliptin Phosphate [Januvia] 50 mg PO DAILY 08/25/19 08/25/19 Trazodone HCl 100 mg PO QPM 08/25/19 08/25/19 Warfarin [Coumadin] 2 mg PO .SATSUNTUESTHURS 08/25/19 08/25/19 Warfarin [Coumadin] 3 mg PO .MONWEDFRI 08/25/19 08/25/19 cloNIDine [Catapres] 0.3 mg PO TID 08/25/19 08/25/19 traMADol [Ultram] 50 mg PO BID 08/25/19 08/25/19 - Allergies Allergies/Adverse Reactions: Allergies Allergy/AdvReac Type Severity Reaction Status Date / Time pregabalin [From Lyrica] Allergy Severe Hives Verified 08/25/19 12:33 Penicillins AdvReac Intermediate Hives Verified 08/25/19 12:33 amlodipine AdvReac Edema Verified 08/25/19 12:33 iv contract Allergy Severe Hives Uncoded 08/25/19 12:33 Review of Systems - Constitutional Constitutional: reports: Fatigue, Weakness, Weight stable. denies: Fever - Eyes Eyes: reports: Vision loss, Corrective lenses - Ears, Nose & Throat Ears, Nose & Throat: reports: Hearing loss (minor per patient report). denies: Hearing aids - Cardiovascular Cardiovascular: reports: Edema. denies: Chest pain - Respiratory Respiratory: reports: SOB with exertion. denies: Wheezing - Gastrointestinal Gastrointestinal: reports: Other (Fair appetite reported). denies: Abdominal pain, Constipation, Diarrhea, Vomiting - Genitourinary Genitourinary: reports: Incontinence, Nocturia. denies: Dysuria - Musculoskeletal Musculoskeletal: reports: Back pain, Muscle weakness, Assistive devices - Integumentary Integumentary: reports: Pigment changes, Other (dryness to face due to CPAP use; BLE wounds) - Neurological Neurological: reports: General weakness, Memory problems. denies: Headache - Psychiatric Psychiatric: denies: Depression - Endocrine Endocrine: reports: Diabetes type 2, Hypothyroidism - All Other Systems All Other Systems: reports: Reviewed and negative Physical Exam - Vital Signs Temperature: 36.6 C Pulse Rate: 64 Respiratory Rate: 16 Blood Pressure: 103/72 (left wrist cuff) - Physical Exam General Appearance: positive: Alert, Other (Paritally dressed; frail, chronically ill apearing woman) Eyes Bilateral: positive: Other (+corrective lenses) ENT: positive: No signs of dehydration Neck: positive: Trachea midline Cardiovascular: positive: Irregularly irregular Respiratory: positive: No respiratory distress, Breath sounds nml (good air movement) Abdomen: positive: Non-tender, Soft, Nml bowel sounds. negative: Guarding Skin: positive: Other (+chronic venous stasis changes to BLE with noted isolated papules from mid calf to mid thigh bilaterally with skin intact on these papules. +weepy BLE with serous drainage. + small isolated open papules to BLE due to edema without evidence of cellulitis. +Telangiectasias to bilateral cheeks with right greater than left +Fragile, thin skin) Extremities: positive: Other (+3 BLE edema; cool distal extremities to touch) Neurologic/Psychiatric: positive: Oriented x3 (mild cogntive impairment noted), Mood/affect nml, Other (slow gait with ambulation with rollator taking small steps) Comments/Other: unable to obtain pulse ox due to patient's cool distal extremities despite trying to warm distal fingertips Palliative Care - POLST Patient has POLST: No Pain: Pain unchanged (pain to bilateral lower extremities and to lower back. On tramadol and tylenol.) Tiredness/Fatigue: Moderate (4-6) Nausea: None Anorexia: None Dyspnea: Mild (1-3) Sleep: Sleeps well (except when she has nocturia during the night) Constipation: No, Managed Performance Status: The patient is ambulatory with a Rollator. She has a history of falls. Last fall 517 that required lift assist from EMS. She becomes easily fatigued during ambulation. She requires caregiving assistance. She is incontinent of urine. She reports that her appetite is stable. PPS 40 to 50% - Palliative Care Discussion: On initial presentation today the patient presents as being quite frail and chronically ill. She herself acknowledges that she is on many medications and she feels that it can become quite burdensome. When exploring her goals regarding her health she reports that she does not like what is been going on with her legs. She reflects that she used to be able to take care of her large yard and now she cannot get along around very well any longer. She does not like being dependent upon others to assist her. She feels that it is burdensome to go out for appointments and to have other people take her. She does not like to go out for these appointments. When attempting to explore further regarding her goals of care and wishes the patient was quite clear that her son Rafal, whom she resides with, "has all the paperwork and knows what I want." When this [facility] asked the patient to elaborate further in regards to her wishes and wants regarding her health care management she again repeated the above statement and would not elaborate further. She also did report that her daughter, Dee also knows her wishes. The patient's had "heart problems" and on hospice services and the patient is familiar with this mode of care. She did become upset when discussing that she added her to the deed of the property as this was gifted to the patient herself from her father. The patient reports that she does have a living will and a healthcare agent but that paperwork is not available on examination today. The patient herself also does not have a POLST present within the home that is visible. Impression and Recommendations - Palliative Care Impression: This is a frail, chronically ill-appearing 89-year-old With a significant past medical history of mild cognitive impairment, hypertension, chronic kidney disease stage IV due to diabetes mellitus, diabetes mellitus type 2, hyperlipidemia, and congestive heart failure with BLE edema. The patient has multiple specialists and it is becoming increasingly difficult for her to leave her home to attend these visits. The patient has lower extremity edema that would benefit from home health nursing management as well as some localized wounds due to the edema without evidence of cellulitis. Palliative care to continue to build rapport, explore goals of care, and provide symptom management and anticipatory guidance. Recommendations/Counseling Done: 1. Chronic Venous Stasis to BLE with wounds. No evidence of cellulitis to BLE. Continue mupirocin as ordered to LE as ordered by dermatology. Patient would benefit from home health nursing for wound care and will refer for services and management. 2. BLE edema. Chronic. In setting of CHF. Continue furosemide as ordered by cardiology and will request records from Dr. Vieira for review. She would benefit from home health nursing for management of BLE edema with compression wraps such as coban as a possible trial. Encouraged elevation of LE when at rest. 3. CKD stage 3 due to Diabetes Mellitus. Followed by nephrology, Dr Larsen and will request records. Continue to monitor renal function and avoid nephrotoxic medications. 4. Diabetes Mellitus type 2. Unknown last HgA1C. Presently on insulin therapy and followed by endocrinology, Dr. Sahu. Continue diabetic regimen as ordered by endocrinology and obtain blood glucose log at next visit and obtain records from endocrinology for review. Patient denies c/o of hypoglycemic events. 5. Lower extremity pain due to edema. Continue diuretic therapy as ordered and start compression wraps to LE with home health nursing for management. Continue tylenol and tramadol as ordered for pain. 6. Mild cognitive impairment. Short term memory concerns noted that patient is aware of as well. Fall precautions. Supportive care. 7. Advanced care planning. Patient does not have a visible POLST within the home. Attempted to explore goals of care today with the patient regarding her health moving forward but she would respond that her children, Rafal and Karina have the paperwork and are aware of her wishes. She confirms she has a DPOA and a living will, but this was not available today. It appears that she may require more caregiving oversight within the home then the caregiver that comes four times a week and will discuss further with Trudy elliott as patient has provided permission. Supportive listening provided to patient and will continue to explore goals of care and advanced care planning with patient and her children. Patient is open to talking with palliative care nuclear weapons specialist and home health services. Face to Face: It would be a taxing and considerable effort for the patient to leave her home secondary to her lower extremity weakness, CHF and the need for her homebound status secondary to her high risk of moratality if she contacts [facility]. The patient has LE edema due to CHF and chronic venous stasis changes with noted wounds that would benefit from edema and wound care management from home health nursing. She is diabetic and on insulin therapy chronically and would benefit from medication management and assessment from home health nursing. She would also require a home health aide for bathing for personal care and skin care. Time Spent: Total time spent 60 minutes with greater than 50% of this spent in counseling and coordination of care with patient, review of pain and symptom management and anticipatory guidance. Message left for Trudy elliott to discuss goals of care, referral to Home Health and goals of care moving forward at [phone]. disclaimer: The chart note was formulated using voice recognition technology and unfortunately sound alike errors may occur.
== END 2019-08-25 09:41 | disposition home or self-care (01) ==
LOC: PC 09:40
PROVIDERS: ATTEND Nurse Practitioner Family
DX: Z51.5 Encounter for palliative care (principal); R60.0 Localized edema; I87.8 Other specified disorders of veins; R23.8 Other skin changes; E11.22 Type 2 diabetes mellitus with diabetic chronic kidney disease; I12.9 Hypertensive chronic kidney disease with stage 1 through stage 4 chronic kidney disease, or unspecified chronic kidney disease; N18.3 Chronic kidney disease, stage 3 (moderate); I50.9 Heart failure, unspecified; I48.91 Unspecified atrial fibrillation; G89.29 Other chronic pain; G31.84 Mild cognitive impairment of uncertain or unknown etiology; Z79.01 Long term (current) use of anticoagulants; Z79.899 Other long term (current) drug therapy; Z79.4 Long term (current) use of insulin; Z79.891 Long term (current) use of opiate analgesic; Z91.81 History of falling
CPT/HCPCS: 99344

== ENCOUNTER 2019-08-28 21:26 | Outpatient (CLI) | payer MEDICARE, OTHER | END 2019-08-28 23:59 | disposition critical access hospital (66) | LOC: EMS 21:26 | PROVIDERS: ATTEND Surgery | DX: M79.89 Other specified soft tissue disorders (principal); M79.662 Pain in left lower leg; M79.661 Pain in right lower leg | CPT/HCPCS: A0425; A0429 ==

== ENCOUNTER 2019-08-28 21:44 | Inpatient (IN) | payer MEDICARE, OTHER ==
--- NOTE | 2019-08-28 22:24 | ED Physician Documentation ---
PD HPI SKIN - Stated complaint Stated Complaint: LEG SORES - Chief complaint Chief Complaint: General - History obtained from History obtained from: Patient - History of Present Illness Timing - onset: How many weeks ago (3-4) Timing - details: Gradual onset Pain level now: 8 Location: RLE, LLE Quality / character: Painful, Burning, Discolored, Swelling, Draining Associated symptoms: No: Fever - Additional information Additional information: BIBA for BLE swelling, pain, redness, worsening over past few weeks despite abx (initially was on keflex but reportedly a wound culture performed at another facility showed resistance to keflex and she was changed to amoxicillin of which she recently completed a 10-day course). Patient says she has increasing difficulty bearing any weight on either leg due to the pain and tenderness Review of Systems Constitutional: denies: Fever, Chills, Sweats Cardiac: reports: Reviewed and negative Respiratory: reports: Reviewed and negative GI: reports: Reviewed and negative Musculoskeletal: reports: Extremity pain, Extremity swelling Neurologic: reports: Generalized weakness. 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 HEENT: Cataracts, Tonsil/Adenoidectomy - Present Medications Home Medications: Ambulatory Orders Medication Instructions Recorded Confirmed Acetaminophen [Tylenol] 650 mg PO BID 08/25/19 08/25/19 Areds Preservision 1 tab PO BID 08/25/19 Aspirin [Aspirin EC] 81 mg PO DAILY 08/25/19 08/25/19 Atorvastatin Calcium 20 mg PO QPM 08/25/19 08/25/19 Ca/Mag/Zinc 1 tab PO DAILY 08/25/19 Cholecalciferol (Vitamin D3) 2,000 units PO DAILY 08/25/19 08/25/19 [Vitamin D3] Flaxseed Oil 1 cap PO DAILY 08/25/19 08/25/19 Furosemide 60 mg PO DAILY 08/25/19 08/25/19 Insulin Glargine [Lantus Solostar] 8 unit SQ QDBREAKFAST 08/25/19 08/25/19 Insulin Lispro [Humalog] 4 unit SQ BIDAC 08/25/19 08/25/19 Isosorbide Mononitrate ER [Imdur] 120 mg PO DAILY 08/25/19 08/25/19 Levothyroxine [Synthroid] 88 mcg PO DAILY 08/25/19 08/25/19 Lisinopril [Zestril] 20 mg PO DAILY 08/25/19 08/25/19 Metoprolol Tartrate 50 mg PO BID 08/25/19 08/25/19 Multivitamin 1 tab PO DAILY 08/25/19 08/25/19 Mupirocin 1 appful TOP .PRNTOWOUNDS PRN MDD 08/25/19 08/25/19 to LE wounds per derm Sitagliptin Phosphate [Januvia] 50 mg PO DAILY 08/25/19 08/25/19 Trazodone HCl 100 mg PO QPM 08/25/19 08/25/19 Warfarin [Coumadin] 2 mg PO .SATSUNTUESTHURS 08/25/19 08/25/19 Warfarin [Coumadin] 3 mg PO .MONWEDFRI 08/25/19 08/25/19 cloNIDine [Catapres] 0.3 mg PO TID 08/25/19 08/25/19 traMADol [Ultram] 50 mg PO BID 08/25/19 08/25/19 - Allergies Allergies/Adverse Reactions: Allergies Allergy/AdvReac Type Severity Reaction Status Date / Time pregabalin [From Lyrica] Allergy Severe Hives Verified 08/28/19 21:55 amlodipine AdvReac Edema Verified 08/28/19 21:55 iv contract Allergy Severe Hives Uncoded 08/28/19 21:55 - Social History Does the pt smoke?: No Smoking Status: Never smoker Does the pt drink ETOH?: No Does the pt have substance abuse?: No - Immunizations Immunizations are current?: Yes - POLST Patient has POLST: No PD ED PE NORMAL - Vitals Vital signs reviewed: Yes - General General: Alert and oriented X 3, No acute distress (NAD at rest), Well developed/nourished - HEENT HEENT: Other (tacky/pasty mucous membranes) - Neck Neck: Supple, no meningeal sign - Cardiac Cardiac: No murmur - Respiratory Respiratory: No respiratory distress, Clear bilaterally - Abdomen Abdomen: Soft, Non tender PD ED PE EXPANDED - Cardiac Cardiac: Irregularly irregular - Extremities Extremities: Tenderness, Swelling, Pedal edema bilateral, Other (BLE erythema, swelling, tenderness. ) LEONEL LE visual: 1 - deformity (skin tear with active serosanguinous drainage) Results - Vitals Vitals: Vital Signs - 24 hr 08/28/19 08/29/19 21:55 00:42 Temperature 36.8 C Heart Rate 86 92 Respiratory 16 20 Rate Blood Pressure 166/83 H 193/78 H O2 Saturation 94 95 Oxygen O2 Source [With Activity] Room air O2 Source Room air - Labs Labs: Laboratory Tests 08/28/19 08/28/19 08/28/19 23:00 23:00 23:00 WBC 13.1 H RBC 4.33 Hgb 10.9 L Hct 35.8 L MCV 82.7 MCH 25.2 L MCHC 30.4 L RDW 17.1 H Plt Count 240 MPV 9.9 Neut # (Auto) 10.3 H Lymph # (Auto) 1.3 L Teller # (Auto) 1.2 H Eos # (Auto) 0.2 Baso # (Auto) 0.0 Absolute Nucleated RBC 0.03 Nucleated RBC % 0.2 ESR PT 65.1 H INR 6.3 H* APTT 48.5 H Sodium 126 L Potassium 4.5 Chloride 86 L Carbon Dioxide 30 Anion Gap 10.0 BUN 42 H Creatinine 1.1 H Estimated GFR (MDRD) 47 L Glucose 209 H Lactic Acid Calcium 8.9 C-Reactive Protein 08/28/19 08/28/19 08/28/19 23:44 23:44 23:44 WBC RBC Hgb Hct MCV MCH MCHC RDW Plt Count MPV Neut # (Auto) Lymph # (Auto) Teller # (Auto) Eos # (Auto) Baso # (Auto) Absolute Nucleated RBC Nucleated RBC % ESR 20 PT INR APTT Sodium Potassium Chloride Carbon Dioxide Anion Gap BUN Creatinine Estimated GFR (MDRD) Glucose Lactic Acid 1.4 Calcium C-Reactive Protein 8.9 H PD MEDICAL DECISION MAKING - ED course Complexity details: reviewed old records, reviewed results, re-evaluated patient, considered differential, d/w patient ED course: worsening BLE cellulitis despite recent 10-day course of antibiotics, associated with significant debility and pain. Will admit for IV antibiotics. significant lab abnormalities include elevated WBC and hyponatremia Departure - Departure Disposition: 66 [facility] DC/Xfer Clinical Impression: Cellulitis Qualifiers: Site of cellulitis: extremity Site of cellulitis of extremity: lower extremity Laterality: unspecified laterality Qualified Code(s): L03.119 - Cellulitis of unspecified part of limb Condition: Stable Discharge Date/Time: 08/29/19 02:49
[2019-08-28 23:11] LABS: BASOPHILS % (AUTO) 0.3 %; EOSINOPHILS # (AUTO) 0.2 10^3/uL (0.0-0.7); EOSINOPHILS % (AUTO) 1.5 %; HGB - HEMOGLOBIN 10.9 g/dL (12.0-16.0); LYMPHOCYTES # (AUTO) 1.3 10^3/uL (1.5-3.5); LYMPHOCYTES % (AUTO) 9.9 %; MEAN CORPUSCULAR HEMOGLOBIN 25.2 pg (27.0-31.0); MEAN CORPUSCULAR HGB CONC 30.4 g/dL (32.0-36.0); MEAN CORPUSCULAR VOLUME 82.7 fL (81.0-99.0); MEAN PLATELET VOLUME 9.9 fL (7.9-10.8); MONOCYTES # (AUTO) 1.2 10^3/uL (0.0-1.0); NEUTROPHILS # (AUTO) 10.3 10^3/uL (1.5-6.6); NEUTROPHILS % (AUTO) 78.8 %; PLT - PLATELET COUNT 240 10^3/uL (130-450); RED BLOOD COUNT 4.33 10^6/uL (4.20-5.40); RED CELL DISTRIBUTION WIDTH 17.1 % (12.0-15.0); WHITE BLOOD COUNT 13.1 x10^3/uL (4.8-10.8)
[2019-08-28 23:17] LABS: PT - PROTHROMBIN TIME 65.1 secs (9.9-12.6)
[2019-08-28 23:19] LABS: CALCIUM 8.9 mg/dL (8.5-10.3); CREATININE 1.1 mg/dL (0.4-1.0)
[2019-08-28 23:29] LABS: PARTIAL THROMBOPLASTIN TIME 48.5 secs (24.9-33.3)
[2019-08-28 23:32] LABS: INR 6.3 (0.8-1.2)
[2019-08-29] MEDS ORDERED: VANCOMYCIN INJ 1 GM in SODIUM CHLORIDE 0.9% 500 ML IV STA (01:39)
[2019-08-29] MEDS ORDERED: CLINDAMYCIN 600 MG/50 ML 50 ML IV ONE (01:54)
[2019-08-29] MEDS ORDERED: CEFEPIME 2 GM in SODIUM CHLORIDE 0.9% MINIBAG 100 ML IV STA (01:54)
[2019-08-29] MEDS ORDERED: LIDOCAINE OINTMENT 5% 35.44 GM TUBE TOP STA (02:07)
[2019-08-29] MEDS: PIPERACILLIN/TAZOBACTAM 3.375 GM in SODIUM CHLORIDE 0.9% MINIBAG 100 ML IV STA ×2 (02:10→02:26)
[2019-08-29] MEDS ORDERED: ACETAMINOPHEN 325 MG TABLET PO PRN (02:18)
--- NOTE | 2019-08-29 02:29 | HISTORY & PHYSICAL EXAMINATION ---
Chief Complaint - Chief Complaint Chief Complaint: lower extremity swelling, weeping and redness History of Present Illness - Admitted From Admitted From:: [facility] ED - History Obtained From Records Reviewed: yes History obtained from: ED physician and chart - History of Present Illness HPI Comment/Other: Patient is a frail 89-year-old female with multiple medical comorbidities who presented from home via EMS with worsening bilateral lower extremity redness, swelling and weeping blisters. Her lower extremities are very painful to touch. She has had this problem going on for a while now. She follows up with the wound clinic at the [facility]. She last was seen at the wound clinic on August 25, 2019. She last saw dermatology on August 03, 2019 per report and was treated for cellulitis with a course of Keflex for 10 days. However the wound culture showed resistance to Keflex and she had an allergy testing performed for amoxicillin and she was started on a 10-day course of amoxicillin on August 10, 2019. It is reported that she completed this regimen. It has also been recommended that she perform bleach soaks daily. She has also been applying mupirocin to the open wounds on her lower extremities as recommended by dermatology. The patient has chronic venous stasis and lower extremity edema. There was concern that the redness seemed to progress since presentation to the emergency department today. Work-up included CBC which showed WBC of 13 and an INR of 6.3. As a result of the patient's clinical presentation she is admitted for further treatment. She is not a very good historian. There was question of memory issues. She would seem to start a sentence and stop midway. She denied chest pain, dyspnea, abdominal pain, nausea, vomiting, fever or chills. She is always cold. She uses a CPAP at home. She is followed by multiples specialist. She sees Dr. Fiona Vieira for cardiology Dr. Larsen for nephrology Dr. Reba Sahu for endocrinology History - Past Medical History Cardiovascular: reports: Hypertension, High cholesterol, Atrial fibrillation (on coumadin) Respiratory: reports: Sleep apnea, CPAP use Neuro: reports: Other (Mild Cognitive Impairment) Endocrine/Autoimmune: reports: Type 2 diabetes, HyPOthyroidism, Other (Secondary hyperaldosteronism) GI: reports: GERD : reports: Other (CKD stage 3, followed by Dr. 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, Oophrectomy HEENT: reports: Cataracts, Tonsil/Adenoidectomy - Family & Social History Family History: Mother: , Father: , Sister: Alive and Well, Asthma Living arrangement: At home Living Situation: With family - Substance History Use: Uses substance without health or social issues: NONE ("dabbled" in tobacco use when she was in High School but never smoked) - POLST Patient has POLST: No POLST Status: Full Code Meds/Allgy - Home Medications Home Medications: Ambulatory Orders Medication Instructions Recorded Confirmed Acetaminophen [Tylenol] 650 mg PO BID 08/25/19 08/25/19 Areds Preservision 1 tab PO BID 08/25/19 Aspirin [Aspirin EC] 81 mg PO DAILY 08/25/19 08/25/19 Atorvastatin Calcium 20 mg PO QPM 08/25/19 08/25/19 Ca/Mag/Zinc 1 tab PO DAILY 08/25/19 Cholecalciferol (Vitamin D3) 2,000 units PO DAILY 08/25/19 08/25/19 [Vitamin D3] Flaxseed Oil 1 cap PO DAILY 08/25/19 08/25/19 Furosemide 60 mg PO DAILY 08/25/19 08/25/19 Insulin Glargine [Lantus Solostar] 8 unit SQ QDBREAKFAST 08/25/19 08/25/19 Insulin Lispro [Humalog] 4 unit SQ BIDAC 08/25/19 08/25/19 Isosorbide Mononitrate ER [Imdur] 120 mg PO DAILY 08/25/19 08/25/19 Levothyroxine [Synthroid] 88 mcg PO DAILY 08/25/19 08/25/19 Lisinopril [Zestril] 20 mg PO DAILY 08/25/19 08/25/19 Metoprolol Tartrate 50 mg PO BID 08/25/19 08/25/19 Multivitamin 1 tab PO DAILY 08/25/19 08/25/19 Mupirocin 1 appful TOP .PRNTOWOUNDS PRN MDD 08/25/19 08/25/19 to LE wounds per derm Sitagliptin Phosphate [Januvia] 50 mg PO DAILY 08/25/19 08/25/19 Trazodone HCl 100 mg PO QPM 08/25/19 08/25/19 Warfarin [Coumadin] 2 mg PO .SATSUNTUESTHURS 08/25/19 08/25/19 Warfarin [Coumadin] 3 mg PO .MONWEDFRI 08/25/19 08/25/19 cloNIDine [Catapres] 0.3 mg PO TID 08/25/19 08/25/19 traMADol [Ultram] 50 mg PO BID 08/25/19 08/25/19 - Allergies Allergies/Adverse Reactions: Allergies Allergy/AdvReac Type Severity Reaction Status Date / Time pregabalin [From Lyrica] Allergy Severe Hives Verified 08/28/19 21:55 amlodipine AdvReac Edema Verified 08/28/19 21:55 iv contract Allergy Severe Hives Uncoded 08/28/19 21:55 Review of Systems - Constitutional Constitutional: denies: Fatigue, Fever, Chills - Eyes Eyes: denies: Pain - Ears, Nose & Throat Ears, Nose & Throat: denies: Ear pain, Sore throat - Cardiovascular Cariovascular: reports: Irregular heart rate, Edema. denies: Chest pain, Lightheadedness, Syncope, Exertional dyspnea - Respiratory Respiratory: reports: Apnea. denies: Cough, Sputum production, Wheezing, SOB at rest, SOB with exertion - Gastrointestinal Gastrointestinal: reports: Reflux/heartburn. denies: Abdominal pain, Abdominal distention, Constipation, Diarrhea, Nausea, Vomiting - Genitourinary Genitourinary: denies: Dysuria, Frequency, Urgency, Hematuria - Musculoskeletal Musculoskeletal: denies: Muscle pain, Back pain, Muscle aches, Stiffness - Integumentary Integumentary: reports: Other (lower extremity blisters, redness and weeping) - Neurological Neurological: reports: Memory problems. denies: Focal weakness, Headache - Psychiatric Psychiatric: denies: Depression, Anxiety - Endocrine Endocrine: denies: Polyuria, Polydypsia - Hematologic/Lymphatic Hematologic/Lymphatic: denies: Anemia, Bruising, Petechiae Prior Level of Functionality: Patient lives with her son. She needs help with activities of daily living. She gets around on a wheelchair. She has a history of falls. Last fall was August 20. Required lift assist from EMS. She becomes easily fatigued during ambulation. She is incontinent of urine. Exam - Vital Signs Vital Signs: Vital Signs x48h Temp Pulse Resp BP Pulse Ox 08/29/19 00:42 92 20 193/78 H 95 08/28/19 21:55 36.8 C 86 16 166/83 H 94 - Physical Exam General Appearance: positive: Alert, Moderate distress Eyes Bilateral: positive: PERRL, EOMI ENT: positive: No signs of dehydration Neck: positive: No JVD, Trachea midline Respiratory: positive: Chest non-tender, No respiratory distress, Breath sounds nml Cardiovascular: positive: Irregularly irregular Abdomen: positive: Non-tender, No organomegaly, Nml bowel sounds, No distention. negative: Guarding, Rebound Back: positive: Nml inspection Skin: positive: Other (erythematous lower extremities with weeping blisters. Painful to palpation) Extremities: positive: Other (erythematous lower extremities with weeping blisters. Painful to palpation) Neurologic/Psychiatric: positive: Oriented x3, Depressed mood/affect (and anxious) Conclusion/Plan - Problem List (1) Cellulitis Conclusion/Plan: Bilateral lower extremities. Blood cultures drawn. Patient started on vancomycin, cefepime and clindamycin. We will de-escalate antibiotics as directed by cultures. Wound care consulted to continue following patient for the weeping blisters in her lower extremity. She last saw wound care on August 25, 2019 at the [facility] clinic. Qualifiers: Site of cellulitis: extremity Site of cellulitis of extremity: lower extremity Laterality: unspecified laterality Qualified Code(s): L03.119 - Cellulitis of unspecified part of limb (2) Supratherapeutic INR Conclusion/Plan: Patient's INR was 6.3. She is on Coumadin for atrial fibrillation We will hold Coumadin for now and monitor INR daily. (3) CHF (congestive heart failure) Conclusion/Plan: We will continue patient's Lasix 60 mg p.o. daily once verified. Daily weights. (4) Hypertension Conclusion/Plan: It appears patient is on multiple antihypertensive medications. These include clonidine, metoprolol, Imdur and lisinopril Will resume once verified. Labetalol IV prn ordered. (5) Diabetes mellitus Conclusion/Plan: Patient is on Lantus 8 units subcu q. AC at home and Januvia. We will continue Lantus. Sliding scale insulin ordered. Accu-Cheks q. before meals and at bedtime. Hemoglobin A1c ordered. Qualifiers: Diabetes mellitus type: type 2 (6) Hypothyroidism Conclusion/Plan: Patient is on Synthroid 88 mcg daily. (7) Atrial fibrillation Conclusion/Plan: Patient is rate controlled on metoprolol 50 mg p.o. twice daily. We will hold Coumadin due to patient's INR of 6.3. (8) Chronic pain Conclusion/Plan: Who manage pain with IV and oral pain medications. (9) BENJAMIN (obstructive sleep apnea) Conclusion/Plan: We will continue patient's home CPAP (10) Hyperlipemia Conclusion/Plan: Patient is on atorvastatin. (11) Physical deconditioning Conclusion/Plan: It appears patient's overall health is steadily declining. This is becoming more than her daughter can manage at home. Social work has been consulted. PT/OT to evaluate give recommendations and treat Patient may need a palliative care consult in the near future. - Lab Results Fish Bones: 08/29/19 05:55 08/29/19 05:55 Core Measures - Anticipated LOS I expect patient to be DC'd or transferred within 96 hours.: Yes - DVT/VTE - Prophylaxis VTE/DVT Device ordered at admit?: No Not Ordered - Medical Reason: Contraindicated (weeping blisters on lower ext remities with cellulitis) VTE/DVT Prophylaxis med ordered at admit?: No Not Ordered - Medical Reason: Contraindicated (supratherapeutic INR)
[2019-08-29] MEDS ORDERED: SODIUM CHLORIDE 0.9% 1,000 ML IV SCH (03:00)
[2019-08-29] MEDS ORDERED: LABETALOL 20 MG/4 ML SYRINGE IVP PRN (03:07)
[2019-08-29] MEDS ORDERED: LABETALOL 20 MG/4 ML SYRINGE IVP STA (03:07)
[2019-08-29] MEDS ORDERED: MORPHINE 2 MG/ML CARPUJECT IVP STA (03:38)
[2019-08-29] MEDS: SODIUM CHLORIDE FLUSH 0.9% 10 ML SYRINGE IVP PRN (03:44)
[2019-08-29] MEDS: HYDROcod/ACETAM 5/325 MG TABLET PO PRN ×3 (05:44→17:08)
[2019-08-29] MEDS: MORPHINE 2 MG/ML CARPUJECT IVP PRN ×2 (05:44→11:32)
[2019-08-29] MEDS ORDERED: FUROSEMIDE 20 MG/2 ML VIAL IVP SCH (06:00)
[2019-08-29] MEDS ORDERED: cloNIDine 0.1 MG TABLET PO SCH (06:00)
[2019-08-29 06:06] LABS: BASOPHILS # (AUTO) 0.1 10^3/uL (0.0-0.1); BASOPHILS % (AUTO) 0.4 %; EOSINOPHILS # (AUTO) 0.3 10^3/uL (0.0-0.7); EOSINOPHILS % (AUTO) 1.7 %; HGB - HEMOGLOBIN 11.4 g/dL (12.0-16.0); LYMPHOCYTES # (AUTO) 2.2 10^3/uL (1.5-3.5); LYMPHOCYTES % (AUTO) 14.4 %; MEAN CORPUSCULAR HGB CONC 31.1 g/dL (32.0-36.0); MEAN CORPUSCULAR VOLUME 80.5 fL (81.0-99.0); MEAN PLATELET VOLUME 9.1 fL (7.9-10.8); MONOCYTES # (AUTO) 1.5 10^3/uL (0.0-1.0); MONOCYTES % (AUTO) 10.2 %; NEUTROPHILS # (AUTO) 10.9 10^3/uL (1.5-6.6); NEUTROPHILS % (AUTO) 72.6 %; PLT - PLATELET COUNT 235 10^3/uL (130-450); RED BLOOD COUNT 4.56 10^6/uL (4.20-5.40); RED CELL DISTRIBUTION WIDTH 17.2 % (12.0-15.0)
[2019-08-29] MEDS: PANTOPRAZOLE 40 MG TABLET PO SCH (06:08)
[2019-08-29 06:11] LABS: PT - PROTHROMBIN TIME 52.9 secs (9.9-12.6)
[2019-08-29 06:17] LABS: CREATININE 1.1 mg/dL (0.4-1.0)
[2019-08-29 06:22] LABS: HB2 TOTAL 11.9 g/dL; HEMOGLOBIN A1C 0.9 g/dL; HEMOGLOBIN A1C % 9.1 % (4.6-6.2); INR 5.1 (0.8-1.2)
[2019-08-29] MEDS ORDERED: LEVOTHYROXINE 88 MCG TABLET PO SCH (07:00)
[2019-08-29] MEDS: CLINDAMYCIN 600 MG/50 ML 50 ML IV SCH ×3 (08:23→20:57)
[2019-08-29] MEDS: INSULIN GLARGINE 300 UNIT/3 ML PEN SUBQ SCH (08:24)
[2019-08-29] MEDS: INSULIN ASPART 300 UNIT/3 ML PEN SUBQ SCH ×4 (08:24→21:01)
[2019-08-29] MEDS: SODIUM CHLORIDE FLUSH 0.9% 10 ML SYRINGE IVP SCH ×2 (08:25→17:05)
[2019-08-29] MEDS ORDERED: METOPROLOL SUCCINATE 25 MG TABLET PO SCH (09:00)
--- NOTE | 2019-08-29 11:12 | PHARMACY PROGRESS NOTE ---
- Best Possible Medication History Admit Date and Time: 08/29/19 0218 Processed by: Pharmacy Medication History completed: Yes Patient Interview: Pt unable to participate Secondary Source(s): Other family member As the person ultimately responsible for medication therapy, providers are able to order a medication from an existing home medication list in [facility] via the "Reconcile Routine" prior to Confirmation of that medication by customer support engineer. Such practice is discouraged except when the physician, in their clinical judgment, deems that a medical need exists for a medication without regard to previous use.
[2019-08-29] MEDS ORDERED: traMADol 50 MG TABLET PO PRN (12:40)
[2019-08-29] MEDS: cloNIDine 0.1 MG TABLET PO SCH ×2 (13:51→21:13)
[2019-08-29] MEDS: AREDS PRESERVISION PO SCH (20:49)
[2019-08-29] MEDS: traZODone 50 MG TABLET PO SCH (20:50)
[2019-08-29] MEDS: METOPROLOL TARTRATE 50 MG TABLET PO SCH (20:50)
[2019-08-29] MEDS: ATORVASTATIN 10 MG TABLET PO SCH (20:50)
[2019-08-29] MEDS ORDERED: ATORVASTATIN 40 MG TABLET PO SCH (21:00)
[2019-08-29] MEDS: traMADol 50 MG TABLET PO SCH (21:13)
[2019-08-30] MEDS ORDERED: CEFEPIME 1 GM in SODIUM CHLORIDE 0.9% MINIBAG 100 ML IV SCH (02:00)
[2019-08-30] MEDS: CLINDAMYCIN 600 MG/50 ML 50 ML IV SCH ×2 (03:00→09:25)
[2019-08-30] MEDS: HYDROcod/ACETAM 5/325 MG TABLET PO PRN ×3 (03:43→19:58)
[2019-08-30] MEDS: SODIUM CHLORIDE FLUSH 0.9% 10 ML SYRINGE IVP PRN ×2 (03:50→04:52)
[2019-08-30] MEDS: MORPHINE 2 MG/ML CARPUJECT IVP PRN ×2 (04:35→14:48)
[2019-08-30 05:50] LABS: BASOPHILS % (AUTO) 0.5 %; EOSINOPHILS % (AUTO) 3.9 %; HGB - HEMOGLOBIN 10.8 g/dL (12.0-16.0); LYMPHOCYTES % (AUTO) 7.6 %; MEAN CORPUSCULAR HEMOGLOBIN 25.9 pg (27.0-31.0); MEAN CORPUSCULAR HGB CONC 31.1 g/dL (32.0-36.0); MEAN CORPUSCULAR VOLUME 83.2 fL (81.0-99.0); MEAN PLATELET VOLUME 9.6 fL (7.9-10.8); MONOCYTES % (AUTO) 13.9 %; NEUTROPHILS % (AUTO) 73.3 %; PLT - PLATELET COUNT 232 10^3/uL (130-450); RED BLOOD COUNT 4.17 10^6/uL (4.20-5.40); RED CELL DISTRIBUTION WIDTH 17.5 % (12.0-15.0); WHITE BLOOD COUNT 13.3 x10^3/uL (4.8-10.8)
[2019-08-30 05:52] LABS: BAND NEUTROPHILS % (MANUAL) 0 %
[2019-08-30 05:55] LABS: PT - PROTHROMBIN TIME 71.6 secs (9.9-12.6)
[2019-08-30 05:57] LABS: CALCIUM 8.5 mg/dL (8.5-10.3); CREATININE 1.1 mg/dL (0.4-1.0)
[2019-08-30 06:24] LABS: ABNORMAL LYMPHS % (MANUAL) 1 %; EOSINOPHILS # (MANUAL) 0.8 10^3/uL (0-0.7); LYMPHOCYTES # (MANUAL) 1.3 10^3/uL (1.5-3.5); LYMPHOCYTES % (MANUAL) 9 %; MONOCYTES # (MANUAL) 1.3 10^3/uL (0.0-1.0)
[2019-08-30 06:25] LABS: PLATELET ESTIMATE, MANUAL NORMAL (130-450,000) (NORMAL); PLATELET MORPHOLOGY NORMAL APPEARANCE (NORMAL); RBC MORPHOLOGY (MULTIPLE) 1+ POLYCHROMASIA (NORMAL)
[2019-08-30 06:26] LABS: DIFFERENTIAL COMMENT MANUAL DIFFERENTIAL
[2019-08-30] MEDS ORDERED: PHYTONADIONE 10 MG/ML AMP PO ONE (06:34)
[2019-08-30] MEDS ORDERED: CHERRY SYRUP 10 ML UDC PO ONE (06:34)
[2019-08-30] MEDS: INSULIN GLARGINE 300 UNIT/3 ML PEN SUBQ SCH (06:41)
[2019-08-30] MEDS: cloNIDine 0.1 MG TABLET PO SCH ×3 (06:44→21:26)
[2019-08-30] MEDS: LEVOTHYROXINE 88 MCG TABLET PO SCH (06:45)
[2019-08-30] MEDS: PANTOPRAZOLE 40 MG TABLET PO SCH (06:53)
[2019-08-30] MEDS ORDERED: WARFARIN 1 MG TABLET PO SCH (09:00)
[2019-08-30] MEDS: INSULIN ASPART 300 UNIT/3 ML PEN SUBQ SCH ×4 (09:10→21:22)
[2019-08-30] MEDS: ASPIRIN EC 81 MG TABLET PO SCH (09:18)
[2019-08-30] MEDS: traMADol 50 MG TABLET PO SCH ×2 (09:21→21:09)
[2019-08-30] MEDS: MULTIVITAMIN TABLET PO SCH (09:21)
[2019-08-30] MEDS: FUROSEMIDE 20 MG TABLET PO SCH (09:21)
[2019-08-30] MEDS: ISOSORBIDE MONONITRATE ER 30 MG TABLET PO SCH (09:22)
[2019-08-30] MEDS: METOPROLOL TARTRATE 50 MG TABLET PO SCH ×2 (09:23→21:08)
[2019-08-30] MEDS: lisinopriL 20 MG TABLET PO SCH (09:24)
[2019-08-30] MEDS: SODIUM CHLORIDE FLUSH 0.9% 10 ML SYRINGE IVP SCH ×3 (09:25→21:26)
[2019-08-30] MEDS: AREDS PRESERVISION PO SCH ×2 (12:22→21:09)
--- NOTE | 2019-08-30 13:19 | CONSULTATION NOTE ---
Palliative Care Follow Up - Referral Referring Provider: Dr. Brittney Reyes Time of Visit: [id number]; [phone]; [id number]; [phone] Referral setting: Hospitalized patient Referral Reason: Chronic Venous Stasis/Advanced Care Planning/LE edema - Information Sources Records reviewed: Previous records reviewed History/Review of Systems obtained from: Patient, Other (Social work and ho spitalist) Exam limitations: Clinical condition (short term memory issues and cognitive impairment) - History of Present Illness Update Brief HPI Update: This is a frail 89-year-old female who was seen and evaluated today at the request of the hospitalist service for an inpatient consultation due to patient's report of lower extremity edema pain, advance care planning, chronic venous stasis. The patient was seen on August 24 for an initial palliative care consultation and was pending admission to home health nursing. The patient has been expressing concerns regarding her lower extremities. She had been seen by dermatology last evaluated August 03, 2019 due to cellulitis and and she completed a course of Keflex however, her wound culture showed resistance to Keflex. She underwent allergy testing and then was started on a 1 0-day course of amoxicillin 19/09/2019 that she completed. She was scheduled to see dermatology today, August 29 for reevaluation with home health nursing to begin on August 30. The patient's daughter, Trudy Segundo, reports that the patient has had lower extremity issues regarding cellulitis for over the last month. The patient was reporting increased lower extremity pain over the weekend with increased weeping. She then developed a skin tear to her lower extremity and the patient's son, Rafal, who resides within the home was unable to stop the bleeding and therefore EMS was called and the patient was transferred to the hospital. The patient's daughter, Dee reports that the patient declined going to [facility] and wish to go to [facility]. Today, the patient wishes that she was not in the hospital and wishes that she was in [place]. 1 presentation the patient's INR was elevated at 6.3 in the emergency department. Her warfarin is currently being held. Her WBC on initial evaluation was 13.1. She was initiated on IV antibiotic therapy. She has a history of chronic venous stasis to the lower extremities. On evaluation today, the patient is quite anxious and upset that she is presently in the hospital. She wishes to be able to have visitors and does not seem to comprehend regarding the coronavirus pandemic and concern for limiting visitors. Also, the patient does not recognize this provider despite recent interaction. She presently has a purewick in place for voiding and is quite happy that she does not have to get up and down to void due to her diuretic therapy. Patient has a past medical history of atrial fibrillation on anticoagulation, chronic diastolic heart failure, chronic kidney disease, hypertension, diabetes mellitus type 2, cognitive impairment, secondary hyperaldosteronism, sleep apnea with CPAP use, hyperlipidemia, hypothyroidism, macular degeneration, chronic back pain, actinic keratosis, lower extremity edema and cellulitis, multiple myeloma diagnosed in 1989 status post interferon, CVA. Social History - Living Situation Living arrangement: At home Living Situation: With spouse/s.o. (lives with son, Rafal) Support System: The patient has been and . She is presently . She has 5 children. Her oldest daughter, Trudy Segundo oversees her medical care ([phone] (. Her daughter Trudy resides in [place] which is approximately 4 hours away. The patient resides in a home with her son, Rafal on a property that she inherited from her father on [address]. Trudy manages her medications through a pillbox and Rafal prompts the patient for her morning and evening medications. Her son Rafal works during the day and is away from the home. The patient has caregivers through rest care that, during the day and prompt the patient to take her medications midday. Medications/Allergies - Medications Active Medication List: Active Medications Acetaminophen (Tylenol) 650 mg PO Q6HR PRN PRN Reason: Pain 1 to 4 Hydrocodone Bitart/Acetaminophen ([place] 5/325) 1 tab PO Q4HR PRN PRN Reason: PAIN Last Admin: 08/30/19 12:21 Dose: 1 tab Aspirin (Ecotrin) 81 mg PO DAILY [facility] Last Admin: 08/30/19 09:18 Dose: 81 mg Atorvastatin Calcium (Lipitor) 20 mg PO QPM [facility] Last Admin: 08/29/19 20:50 Dose: 20 mg Clonidine HCl (Catapres) 0.3 mg PO TID [facility] Last Admin: 08/30/19 06:44 Dose: 0.3 mg Furosemide (Lasix) 60 mg PO DAILY [facility] Last Admin: 08/30/19 09:21 Dose: 60 mg Insulin Aspart (Novolog) 1 - 5 unit SUBQ 0800,1200,1700,2100 [facility]; Protocol Last Admin: 08/30/19 12:15 Dose: 3 unit Insulin Glargine (Lantus Solostar) 8 unit SUBQ QDAC [facility] Last Admin: 08/30/19 06:41 Dose: 8 unit Isosorbide Mononitrate (Imdur) 120 mg PO DAILY [facility] Last Admin: 08/30/19 09:22 Dose: 120 mg Labetalol HCl (Trandate Syringe) 10 mg IVP Q4H PRN PRN Reason: PER PHYSICIAN ORDER Last Admin: 08/29/19 08:26 Dose: 10 mg Levothyroxine Sodium (Synthroid) 88 mcg PO QDAC [facility] Last Admin: 08/30/19 06:45 Dose: 88 mcg Lisinopril (Zestril) 20 mg PO DAILY [facility] Last Admin: 08/30/19 09:24 Dose: 20 mg Metoprolol Tartrate (Lopressor) 50 mg PO BID [facility] Last Admin: 08/30/19 09:23 Dose: 50 mg Morphine Sulfate (Morphine (Carpuject)) 2 mg IVP Q2HR PRN PRN Reason: PAIN Last Admin: 08/30/19 04:35 Dose: 2 mg Multivitamins (Theragran) 1 tab PO DAILY [facility] Last Admin: 08/30/19 09:21 Dose: 1 tab (Areds Preservision (1 Tab)) 1 tab PO BID [facility] Last Admin: 08/30/19 12:22 Dose: Not Given Pantoprazole Sodium (Protonix) 40 mg PO QDAC [facility] Last Admin: 08/30/19 06:53 Dose: Not Given Sodium Chloride (Normal Saline Flush 0.9%) 10 ml IVP PRN PRN PRN Reason: NEEDED PER PROVIDER ORDERS Last Admin: 08/30/19 04:52 Dose: 10 ml Sodium Chloride (Normal Saline Flush 0.9%) 10 ml IVP 0100,0900,1700 [facility] Last Admin: 08/30/19 09:25 Dose: 10 ml Tramadol HCl (Ultram) 50 mg PO BID [facility] Last Admin: 08/30/19 09:21 Dose: 50 mg Tramadol HCl (Ultram) 50 mg PO DAILY PRN PRN Reason: PAIN Last Admin: 08/29/19 19:18 Dose: 50 mg Trazodone HCl (Desyrel) 100 mg PO QPM [facility] Last Admin: 08/29/19 20:50 Dose: 100 mg Warfarin Sodium (Coumadin) 2 mg PO SUTUTHSA@0900 [facility] Warfarin Sodium (Coumadin) 3 mg PO MOWEFR@0900 [facility] Areds Preservision 1 tab PO BID 08/25/19 Aspirin [Aspirin EC] 81 mg PO DAILY 08/25/19 Ca/Mag/Zinc 1 tab PO DAILY 08/25/19 Cholecalciferol (Vitamin D3) [Vitamin D3] 2,000 units PO DAILY 08/25/19 Flaxseed Oil 1 cap PO DAILY 08/25/19 Furosemide 60 mg PO DAILY 08/25/19 Insulin Glargine [Lantus Solostar] 8 unit SQ QDBREAKFAST 08/25/19 Insulin Lispro [Humalog] 4 unit SQ BIDAC 08/25/19 Isosorbide Mononitrate ER [Imdur] 120 mg PO DAILY 08/25/19 Levothyroxine [Synthroid] 88 mcg PO QDAC 08/25/19 Metoprolol Tartrate 50 mg PO BID 08/25/19 Sitagliptin Phosphate [Januvia] 50 mg PO DAILY 08/25/19 Trazodone HCl 100 mg PO QPM 08/25/19 Warfarin [Coumadin] 2 mg PO SUTUTHSA@0900 08/25/19 Warfarin [Coumadin] 3 mg PO MOWEFR@0900 08/25/19 Acetaminophen 650 mg PO BID 08/29/19 Atorvastatin Calcium 20 mg PO QPM 08/29/19 Multivitamin [Theragran] 1 tab PO DAILY 08/29/19 Mupirocin 1 applic TOP DAILY 08/29/19 Sitagliptin Phosphate [Januvia] 50 mg PO DAILY 08/29/19 Tramadol HCl 50 mg PO BID 08/29/19 Tramadol HCl 50 mg PO DAILY PRN 08/29/19 cloNIDine HCL [Clonidine HCl] 0.3 mg PO TID 08/29/19 lisinopriL [Lisinopril] 20 mg PO DAILY 08/29/19 - Allergies Allergies/Adverse Reactions: Allergies Allergy/AdvReac Type Severity Reaction Status Date / Time pregabalin [From Lyrica] Allergy Severe Hives Verified 08/28/19 21:55 Iodinated Contrast Media Allergy Hives Verified 08/29/19 12:50 amlodipine AdvReac Edema Verified 08/28/19 21:55 Review of Systems - Constitutional Constitutional: reports: Fatigue. denies: Fever - Eyes Eyes: reports: Vision loss (secondary to macular degeneration), Corrective lenses - Ears, Nose & Throat Ears, Nose & Throat: denies: Dry mouth - Cardiovascular Cardiovascular: denies: Chest pain - Respiratory Respiratory: denies: Cough - Gastrointestinal Gastrointestinal: denies: Abdominal pain, Constipation, Vomiting - Genitourinary Genitourinary: reports: Incontinence, Nocturia. denies: Dysuria - Musculoskeletal Musculoskeletal: reports: Back pain, Assistive devices - Integumentary Integumentary: reports: Other (wound to LE and LE edea) - Neurological Neurological: reports: General weakness, Memory problems - Endocrine Endocrine: reports: Diabetes type 2, Hypothyroidism - All Other Systems All Other Systems: reports: Reviewed and negative Physical Exam - Vital Signs Vital Signs: Vital Signs x48h Temp Pulse Resp BP BP Pulse Ox 08/30/19 12:11 36.5 C 73 16 117/52 L 100 08/30/19 09:23 147/73 H 08/30/19 08:18 36.3 C L 74 14 147/73 H 100 08/30/19 05:30 139/72 H - Physical Exam General Appearance: positive: Other (Frail, chronically ill appearng woamn) Eyes Bilateral: positive: Other (+corrective lenses in place) ENT: positive: No signs of dehydration Neck: positive: No JVD, Trachea midline Cardiovascular: positive: Irregularly irregular Respiratory: positive: No respiratory distress, Breath sounds nml Abdomen: positive: Non-tender, Soft, Nml bowel sounds, Other (pure-wick in place for urinary incontinence) Skin: positive: Other (skin tear to LLE with dried blood noted without evidence of surrounding erythema. Chronic BLE pigmentation changes with LLE greater than RLE consistent with chronic venous stasis changes. Improvement of weeping to BLE from last evaluation with isolated open papule to RLE with yellow slough noted. +Telangiectasia to bilateral cheeks; generalized scattered ecchymoses with thin, fragile skin) Extremities: positive: Pedal edema (+2 BLE edema with cool, distal extremities to touch) Neurologic/Psychiatric: positive: Other (Does not recall meeting this MOTOR ASSEMBLY SUPERVISOR---w davidh is not unsurpising given the patient's cogntivie deficit as well as sensory deficit with her macular degeneration. Was tearful and upset regarding be hospitalized. Given the patient's tearful nature and anxiety was unable to properly assess orientation on assessment today.) Palliative Care - POLST Patient has POLST: No Pain: Pain unchanged (Controlled at present to BLE and to lower back.) Constipation: No Performance Status: At baseline patient is ambulatory with a Rollator at a very slow pace. She has a history of falls. Last fall was 08/20 that required a lift assist from EMS. She becomes easily fatigued during ambulation. She requires caregiving assistance. She is incontinent of urine. - Palliative Care Discussion: The patient presented to the emergency department due to worsening lower extrem ity pain, weeping, and unable to control bleeding to the left lower extremity skin tear. The patient is quite distressed as she does not wish to be in the hospital and wishes to be at a another facility as well has allowance of visitors. Due to the patient's cognitive impairment she is not able to comprehend regarding visitor restrictions due to the coronavirus pandemic at the present time. The patient is presently on IV antibiotic therapy for lower extremity cellulitis and discussed with the hospitalist regarding previous presentation of patient's lower extremities on initial consultation by palliative care with chronic venous stasis changes. The patient is due to see cannon fire direction specialist, Onelia, later today and also reviewed with cannon fire direction specialist regarding patient's past history. Discussed goals of care with patient's daughter, Trudy and Trudy reports that she and the family do not wish for the patient to be discharged to a senior living facility for wound care and wish for the patient to return home with home health services for nursing in place with continuation of supplemental caregiving support by [facility]. Began discussion regarding patient's fraility and increased caregiving needs that the patient presents at the present time . Trudy recognizes that the patient will not be at her previous functional state upon discharge given her history of cognitive impairment as well as chronic co- morbdities but is afraid. Trudy is afraid that if the patient were to be discharged to a skilled facility instead of returning home that she will "give up her will to live" and subsequently . The patient has told her family in the past that she wishes to remain at home and not be in a facility and to at home. The patient's daughter Trudy, does not feel as if we are "at that point." Advised daughter, Trudy that ultimately the hospital team are looking to facilitate a safe discharge. Trudy recognizes that the patient may need additional caregiving services in the future. Discussed hoping for the best but recognizing the need to plan for other outcomes such as assisted living. Trudy reports concerns regarding the patient developing infection due to urinary incontinence with urine having contact with the patient's lower extremities resulting in infection. Both Trudy and her sister expressed concerns regarding the patient developing sepsis due to her lower extremities. Provided reassurance to Trudy regarding signs and symptoms of sepsis that are not present on examination with the patient today. The patient has previously completed [employer] paperwork but this is not available at the present time. Results - Lab Results Fish Bones: 08/30/19 05:08/30/19 05:20 Lab and Imaging Results: Lab Results x24hrs 08/30/19 08/30/19 08/30/19 Range/Units 05:20 05:20 05:20 WBC 13.3 H (4.8-10.8) x10^3/uL RBC 4.17 L (4.20-5.40) 10^6/uL Hgb 10.8 L (12.0-16.0) g/dL Hct 34.7 L (37.0-47.0) % MCV 83.2 (81.0-99.0) fL MCH 25.9 L (27.0-31.0) pg MCHC 31.1 L (32.0-36.0) g/dL RDW 17.5 H (12.0-15.0) % Plt Count 232 (130-450) 10^3/uL MPV 9.6 (7.9-10.8) fL Neut # (Auto) Not Reportable Lymph # (Auto) Not Reportable Blair # (Auto) Not Reportable Eos # (Auto) Not Reportable Baso # (Auto) Not Reportable Absolute Nucleated RBC Not Reportable Total Counted 100 Band Neuts % (Manual) 0 (0 - 10) % Abnorm Lymph % (Manual) 1 % Nucleated RBC % Not Reportable Neutrophils # (Manual) 9.8 H (1.5-6.6) 10^3/uL Lymphocytes # (Manual) 1.3 L (1.5-3.5) 10^3/uL Monocytes # (Manual) 1.3 H (0.0-1.0) 10^3/uL Eosinophils # (Manual) 0.8 H (0-0.7) 10^3/uL Basophils # (Manual) 0.0 (0-0.1) 10^3/uL Differential Comment MANUAL DIFFERENTIAL WBC Morphology NORMAL APPEARANCE (NORMAL) Platelet Estimate NORMAL (130-450,000) (NORMAL) Platelet Morphology NORMAL APPEARANCE (NORMAL) RBC Morph Micro Appear 1+ POLYCHROMASIA (NORMAL) PT 71.6 H (9.9-12.6) secs INR 7.0 H* (0.8-1.2) Sodium 131 L (135-145) mmol/L Potassium 4.1 (3.5-5.0) mmol/L Chloride 92 L (101-111) mmol/L Carbon Dioxide 29 (21-32) mmol/L Anion Gap 10.0 (6-13) BUN 34 H (6-20) mg/dL Creatinine 1.1 H (0.4-1.0) mg/dL Estimated GFR (MDRD) 47 L (>89) Glucose 295 H (70-100) mg/dL Calcium 8.5 (8.5-10.3) mg/dL Impression and Recommendations - Palliative Care Impression: This is a frail, chronically ill-appearing 89-year-old with a significant past medical history of cognitive impairment, hypertension, chronic kidney disease, diabetes mellitus type 2, hyperlipidemia and congestive heart failure with bilateral lower extremity edema. She presented to the emergency department due to worsening lower extremity pain and weeping to her lower extremities. She was admitted for cellulitis and started on IV antibiotic therapy. Presently the hospital team is looking towards a safe discharge plan. Palliative care to continue to build rapport, explore goals of care, obtain DPOA paperwork to explore POLST and anticipatory guidance. Recommendations/Counseling Done: 1. LE cellulitis. WBC on presentation 13.1 on 08/28/2019. Presently on IV antibiotics. Defer to hospitalist team regarding management and WBC trend. 2. Chronic Venous stasis change and BLE edema. Consulted with hospitalist and wound outdoor emergency care technician, Onelia, regarding previous physical findings. WCC pending. Patient will benefit from improved management of her BLE edema for comfort and ambulation. 3. Diabetes mellitus type 2. Patient is on insulin therapy at home with [facility]. HgA1C obtained and was 9.1% on this admission. Continue SSI and Lantus as ordered. Goal HgA1C given advanced age and co-morbidities 7-8%. 4. Advanced care planning. Patient does not have a POLST. She has 5 children and has designated a D POA and this paperwork needs to be obtained. Per previous conversations with the patient's daughterDee she is to be the patient's healthcare agent. Presently the family's goal is for the patient to return home with res care for caregiving needs with home health nursing coming 1-2 times per week for lower extremity edema and wound care management. Discussed with the patient's daughter, Trudy that the patient likely needs more more oversite given her cognitive impairment and discussed assisted living opti ons, possibly closer to Trudy given she oversees the patient's medical care from some distance away. At this time, the daughter wishes the patient to return to her home environment and recognizes that an alternative plan, such as respite care with a transition to assisted living may be needed in the future if the patient were to decline. These concerns were relayed to the social work staff to coordinate with the patient's daughter regarding a safe discharge plan. Palliative care to continue to build rapport and explore goals of care with the patient and the family. Goal is obtainment of DPOA paperwork and facility a POLST conversation. At the present time, the patient is too anxious and upset regarding being hospitalized to participate in a conversation and appointment of a DPOA to facilitate a POLST discussion. Will continue to assess. Time Spent: Total time spent 51 minutes with greater than 50% of this spent in counseling and coordination of care with SW, hospitalist, C specialist, patient and daughter, Trudy;examination of the patient; review of medical records; and anticipatory guidance. Disclaimer: The chart note was formulated using voice recognition technology and unfortunately sound alike errors may occur.
[2019-08-30] MEDS: CARBOXYMETHYLCELLULOSE OPHTH DROPS EACHEYE PRN ×2 (15:45→21:06)
--- NOTE | 2019-08-30 16:16 | PROVIDER PROGRESS NOTE ---
Subjective - Prog Note Date Prog Note Date: 08/30/19 Prog Note Time: 16:37 - Subjective Subjective: she is quiet, not really oriented enough to make her own decisions. angry and mad at being here. Wants to go home. Current Medications - Current Medications Current Medications: Active Medications Acetaminophen (Tylenol) 650 mg PO Q6HR PRN PRN Reason: Pain 1 to 4 Hydrocodone Bitart/Acetaminophen (Gray 5/325) 1 tab PO Q4HR PRN PRN Reason: PAIN Last Admin: 08/30/19 12:21 Dose: 1 tab Aspirin (Ecotrin) 81 mg PO DAILY [facility] Last Admin: 08/30/19 09:18 Dose: 81 mg Atorvastatin Calcium (Lipitor) 20 mg PO QPM [facility] Last Admin: 08/29/19 20:50 Dose: 20 mg Carboxymethylcellulose (Refresh 1% Ophth Drops) 1 drops EACHEYE Q4HR PRN PRN Reason: Dry Eye Last Admin: 08/30/19 15:45 Dose: 1 drops Clonidine HCl (Catapres) 0.3 mg PO TID [facility] Last Admin: 08/30/19 14:48 Dose: 0.3 mg Furosemide (Lasix) 60 mg PO DAILY [facility] Last Admin: 08/30/19 09:21 Dose: 60 mg Insulin Aspart (Novolog) 1 - 5 unit SUBQ 0800,1200,1700,2100 [facility]; Protocol Last Admin: 08/30/19 12:15 Dose: 3 unit Insulin Glargine (Lantus Solostar) 8 unit SUBQ QDAC [facility] Last Admin: 08/30/19 06:41 Dose: 8 unit Isosorbide Mononitrate (Imdur) 120 mg PO DAILY [facility] Last Admin: 08/30/19 09:22 Dose: 120 mg Labetalol HCl (Trandate Syringe) 10 mg IVP Q4H PRN PRN Reason: PER PHYSICIAN ORDER Last Admin: 08/29/19 08:26 Dose: 10 mg Levothyroxine Sodium (Synthroid) 88 mcg PO QDAC [facility] Last Admin: 08/30/19 06:45 Dose: 88 mcg Lisinopril (Zestril) 20 mg PO DAILY [facility] Last Admin: 08/30/19 09:24 Dose: 20 mg Metoprolol Tartrate (Lopressor) 50 mg PO BID [facility] Last Admin: 08/30/19 09:23 Dose: 50 mg Morphine Sulfate (Morphine (Carpuject)) 2 mg IVP Q2HR PRN PRN Reason: PAIN Last Admin: 08/30/19 14:48 Dose: 2 mg Multivitamins (Theragran) 1 tab PO DAILY [facility] Last Admin: 08/30/19 09:21 Dose: 1 tab (Areds Preservision (1 Tab)) 1 tab PO BID [facility] Last Admin: 08/30/19 12:22 Dose: Not Given Pantoprazole Sodium (Protonix) 40 mg PO QDAC [facility] Last Admin: 08/30/19 06:53 Dose: Not Given Sodium Chloride (Normal Saline Flush 0.9%) 10 ml IVP PRN PRN PRN Reason: NEEDED PER PROVIDER ORDERS Last Admin: 08/30/19 04:52 Dose: 10 ml Sodium Chloride (Normal Saline Flush 0.9%) 10 ml IVP 0100,0900,1700 [facility] Last Admin: 08/30/19 09:25 Dose: 10 ml Tramadol HCl (Ultram) 50 mg PO BID [facility] Last Admin: 08/30/19 09:21 Dose: 50 mg Tramadol HCl (Ultram) 50 mg PO DAILY PRN PRN Reason: PAIN Last Admin: 08/29/19 19:18 Dose: 50 mg Trazodone HCl (Desyrel) 100 mg PO QPM [facility] Last Admin: 08/29/19 20:50 Dose: 100 mg Warfarin Sodium (Coumadin) 2 mg PO SUTUTHSA@0900 [facility] Warfarin Sodium (Coumadin) 3 mg PO MOWEFR@0900 [facility] Areds Preservision 1 tab PO BID 08/25/19 Aspirin [Aspirin EC] 81 mg PO DAILY 08/25/19 Ca/Mag/Zinc 1 tab PO DAILY 08/25/19 Cholecalciferol (Vitamin D3) [Vitamin D3] 2,000 units PO DAILY 08/25/19 Flaxseed Oil 1 cap PO DAILY 08/25/19 Furosemide 60 mg PO DAILY 08/25/19 Insulin Glargine [Lantus Solostar] 8 unit SQ QDBREAKFAST 08/25/19 Insulin Lispro [Humalog] 4 unit SQ BIDAC 08/25/19 Isosorbide Mononitrate ER [Imdur] 120 mg PO DAILY 08/25/19 Levothyroxine [Synthroid] 88 mcg PO QDAC 08/25/19 Metoprolol Tartrate 50 mg PO BID 08/25/19 Sitagliptin Phosphate [Januvia] 50 mg PO DAILY 08/25/19 Trazodone HCl 100 mg PO QPM 08/25/19 Warfarin [Coumadin] 2 mg PO SUTUTHSA@0900 08/25/19 Warfarin [Coumadin] 3 mg PO MOWEFR@0900 08/25/19 Acetaminophen 650 mg PO BID 08/29/19 Atorvastatin Calcium 20 mg PO QPM 08/29/19 Multivitamin [Theragran] 1 tab PO DAILY 08/29/19 Mupirocin 1 applic TOP DAILY 08/29/19 Sitagliptin Phosphate [Januvia] 50 mg PO DAILY 08/29/19 Tramadol HCl 50 mg PO BID 08/29/19 Tramadol HCl 50 mg PO DAILY PRN 08/29/19 cloNIDine HCL [Clonidine HCl] 0.3 mg PO TID 08/29/19 lisinopriL [Lisinopril] 20 mg PO DAILY 08/29/19 Objective - Vital Signs/Intake & Output Reviewed Vital Signs: Yes Vital Signs: Vital Signs x48h Temp Pulse Resp BP BP Pulse Ox 08/30/19 15:58 36.5 C 82 16 104/49 L 100 08/30/19 12:11 36.5 C 73 16 117/52 L 100 08/30/19 09:23 147/73 H 08/30/19 08:18 36.3 C L 74 14 147/73 H 100 Intake & Output: Intake & Output 08/27/19 08/28/19 08/29/19 08/30/19 23:59 23:59 23:59 23:59 Intake Total 1220 800 Output Total 900 750 Balance 320 50 - Objective General Appearance: positive: No acute distress, Other (Short statured elderly female with forgetfulness, no cachexia) Eyes Bilateral: positive: PERRL Neck: positive: No JVD. negative: Stiff neck Respiratory: positive: Chest non-tender, No respiratory distress, Other (Needing 2 L to maintain O2 sat at 100%.). negative: Breath sounds nml (Shallow, unlabored, diminished at bases), Wheezes, Rales, Rhonchi Cardiovascular: positive: Regular rate & rhythm, Systolic murmur. negative: Gallop/S4, Friction rub Abdomen: positive: Non-tender, No organomegaly, Nml bowel sounds, No distention Skin: positive: Other (Her legs have severe, severe venous stasis dermatitis. Discoloration starts around mid will with mild light pink that gradually increases in discoloration to a deep ruborous purple by the tops of her toes. Skin is weeping, copious dripping down the leg. There is no heat, legs are t red over her skin especially over her shins and top of feet.) Extremities: positive: Pedal edema Neurologic/Psychiatric: positive: CN's nml (2-12), Motor nml, Disoriented to place, Disoriented to time, Weakness - Lab Results Fish Bones: 08/30/19 05:08/30/19 05:20 Other Labs: Lab Results x24hrs 08/30/19 08/30/19 08/30/19 Range/Units 05:20 05:20 05:20 WBC 13.3 H (4.8-10.8) x10^3/uL RBC 4.17 L (4.20-5.40) 10^6/uL Hgb 10.8 L (12.0-16.0) g/dL Hct 34.7 L (37.0-47.0) % MCV 83.2 (81.0-99.0) fL MCH 25.9 L (27.0-31.0) pg MCHC 31.1 L (32.0-36.0) g/dL RDW 17.5 H (12.0-15.0) % Plt Count 232 (130-450) 10^3/uL MPV 9.6 (7.9-10.8) fL Neut # (Auto) Not Reportable Lymph # (Auto) Not Reportable [place] # (Auto) Not Reportable Eos # (Auto) Not Reportable Baso # (Auto) Not Reportable Absolute Nucleated RBC Not Reportable Total Counted 100 Band Neuts % (Manual) 0 (0 - 10) % Abnorm Lymph % (Manual) 1 % Nucleated RBC % Not Reportable Neutrophils # (Manual) 9.8 H (1.5-6.6) 10^3/uL Lymphocytes # (Manual) 1.3 L (1.5-3.5) 10^3/uL Monocytes # (Manual) 1.3 H (0.0-1.0) 10^3/uL Eosinophils # (Manual) 0.8 H (0-0.7) 10^3/uL Basophils # (Manual) 0.0 (0-0.1) 10^3/uL Differential Comment MANUAL DIFFERENTIAL WBC Morphology NORMAL APPEARANCE (NORMAL) Platelet Estimate NORMAL (130-450,000) (NORMAL) Platelet Morphology NORMAL APPEARANCE (NORMAL) RBC Morph Micro Appear 1+ POLYCHROMASIA (NORMAL) PT 71.6 H (9.9-12.6) secs INR 7.0 H* (0.8-1.2) Sodium 131 L (135-145) mmol/L Potassium 4.1 (3.5-5.0) mmol/L Chloride 92 L (101-111) mmol/L Carbon Dioxide 29 (21-32) mmol/L Anion Gap 10.0 (6-13) BUN 34 H (6-20) mg/dL Creatinine 1.1 H (0.4-1.0) mg/dL Estimated GFR (MDRD) 47 L (>89) Glucose 295 H (70-100) mg/dL Calcium 8.5 (8.5-10.3) mg/dL ABX Reporting Has patient been on IV antibiotics over the past 48 hours?: Yes Assessment/Plan - Problem List (1) Venous stasis dermatitis of both lower extremities Impression: Bood cultures drawn. Patient started on vancomycin, cefepime and clindamycin here because thought was severe cellulitis, She was initially treated by her primary care provider with penicillin but did not improve. 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 Keflex and mupirocin prescribed August 02. Wound care consulted to continue following patient for the weeping blisters in her lower extremity. She last saw wound care on August 25, 2019 at the [facility]. This elderly female does not have a fever. White cell count has been intermittently elevated since 2016. She does have periods where they come down to normal. In March she was 10.6, and this admission she has been 13.1, 15, 13.3. Although she was admitted as a cellulitis last night, I am stopping her antibiotics will focus on aggressive wound care of this severely inflamed legs, and see if she spikes a fever or has further temperature. If she does, I will then start antibiotics with imipenem or Levaquin. Her antibiotic profile on August 02 showed a resistant to cefepime, cefotaxime, ceftriaxone. (2) Supratherapeutic INR Conclusion/Plan: Patient's INR was 6.3. She was on Coumadin for atrial fibrillation and it has been held. given vitamin K for high level this am. Laboratory Tests 08/28/19 08/29/19 08/30/19 23:00 05:55 05:20 INR 6.3 H* 5.1 H* 7.0 H* There may be an issue with her getting her medications on a regular basis. Even though she has Res care to help her with her medication, they can only prompt her to take them. It is unclear if she is compliant. In view of the fact that she takes antibiotics and Coumadin, there is also the possibility of an interaction. Continue to hold Coumadin for now and monitor INR daily. (3) CHF (congestive heart failure), right Conclusion/Plan: Continue patient's Lasix 60 mg p.o. daily since now verified. Daily weights not being recorded. will reorder. Echocardiogram done August 2016 shows a normal ejection fraction of 65 to 70%. Moderate abnormal right heart pressures. At that time her RVSP at rest was 60 mmHg which was starting to get higher from the previous exam of March 2016. (4) Hypertension Conclusion/Plan: It appears patient is on multiple antihypertensive medications. Her medications were verified by pharmacy and she is on clonidine, Lasix 60 mg daily, Imdur 120 mg daily, lisinopril 20 mg daily, metoprolol tartrate 50 mg twice daily, and I suspect the Imdur may be contributing to her edema. Catapres 0.3, 3 times daily, Lasix 60 daily, Imdur 120 daily, lisinopril 20 daily and metoprolol tartrate 50 twice daily were all resumed. Blood pressure today has been between 104-147 systolic. (5) Diabetes mellitus Conclusion/Plan: Patient is on Lantus 8 units subcu q. AC at home and Januvia. Hemoglobin A1c 9.1%. Yesterday glucose very between 150 3 in the morning to 242 last night. This morning she was to 94 then to 64 and 269 by the afternoon. She did not eat breakfast, 800% of her lunch. We will continue Lantus with increase to 10 units. Sliding scale insulin ordered. Accu-Cheks q. before meals and at bedtime. Qualifiers: Diabetes mellitus type: type 2 (6) Hypothyroidism Conclusion/Plan: Patient is on Synthroid 88 mcg daily. (7) Atrial fibrillation Conclusion/Plan: Patient is rate controlled on metoprolol 50 mg p.o. twice daily. We will hold Coumadin due to patient's INR of 6.3. (8) Chronic pain Conclusion/Plan: Who manage pain with IV and oral pain medications. (9) BENJAMIN (obstructive sleep apnea) Conclusion/Plan: We will continue patient's home CPAP (10) Hyperlipemia Conclusion/Plan: Patient is on atorvastatin. (11) Physical deconditioning Conclusion/Plan: It appears patient's overall health is steadily declining. This is becoming more than her son can manage at home. Her son lives with her. [place] of her children besides her son live off the [place]. Daughter lives in [place]. Social work explains to me that multiple conversations were had with the daughter today who is the power of research attorney. Unfortunately the daughter is designated DPOA and the son is design ated as financial provider. However no paperwork is been done or filed. Daughter has made it clear she does not want mom to be placed in a detention facility for rehab or wound management. She states that she will drive here and take care of mom / in her own home. Daughter states that they have been trying to get home health for over 2 months. I will order home health today to make sure it is in place for discharge. Palliative care consult has also been requested.
[2019-08-30] MEDS: ATORVASTATIN 10 MG TABLET PO SCH (21:08)
[2019-08-30] MEDS: traZODone 50 MG TABLET PO SCH (21:09)
[2019-08-31] MEDS: SODIUM CHLORIDE FLUSH 0.9% 10 ML SYRINGE IVP SCH ×3 (01:10→16:42)
[2019-08-31] MEDS ORDERED: VANCOMYCIN INJ 1 GM in SODIUM CHLORIDE 0.9% 250 ML IV SCH (02:00)
[2019-08-31] MEDS: HYDROcod/ACETAM 5/325 MG TABLET PO PRN ×2 (05:12→16:41)
[2019-08-31] MEDS: PANTOPRAZOLE 40 MG TABLET PO SCH (05:13)
[2019-08-31] MEDS: cloNIDine 0.1 MG TABLET PO SCH ×3 (05:13→21:52)
[2019-08-31] MEDS: LEVOTHYROXINE 88 MCG TABLET PO SCH (05:15)
[2019-08-31] MEDS: INSULIN GLARGINE 300 UNIT/3 ML PEN SUBQ SCH (05:20)
[2019-08-31 05:26] LABS: BASOPHILS % (AUTO) 0.6 %; EOSINOPHILS % (AUTO) 6.8 %; HGB - HEMOGLOBIN 10.2 g/dL (12.0-16.0); LYMPHOCYTES % (AUTO) 11.6 %; MEAN CORPUSCULAR HEMOGLOBIN 26.3 pg (27.0-31.0); MEAN CORPUSCULAR HGB CONC 31.7 g/dL (32.0-36.0); MEAN PLATELET VOLUME 9.6 fL (7.9-10.8); MONOCYTES % (AUTO) 12.9 %; NEUTROPHILS % (AUTO) 67.3 %; PLT - PLATELET COUNT 265 10^3/uL (130-450); RED BLOOD COUNT 3.88 10^6/uL (4.20-5.40); RED CELL DISTRIBUTION WIDTH 17.4 % (12.0-15.0); WHITE BLOOD COUNT 12.4 x10^3/uL (4.8-10.8)
[2019-08-31 05:28] LABS: INR 1.8 (0.8-1.2); PT - PROTHROMBIN TIME 19.6 secs (9.9-12.6)
[2019-08-31 05:30] LABS: ABNORMAL LYMPHS % (MANUAL) 0 %
[2019-08-31 05:36] LABS: CALCIUM 8.8 mg/dL (8.5-10.3); CREATININE 1.2 mg/dL (0.4-1.0)
[2019-08-31 05:55] LABS: BAND NEUTROPHILS % (MANUAL) 1 %; BASOPHILS # (MANUAL) 0.1 10^3/uL (0-0.1); BASOPHILS % (MANUAL) 1 %; DIFFERENTIAL COMMENT MANUAL DIFFERENTIAL; EOSINOPHILS # (MANUAL) 0.7 10^3/uL (0-0.7); LYMPHOCYTES # (MANUAL) 0.5 10^3/uL (1.5-3.5); LYMPHOCYTES % (MANUAL) 4 %; MONOCYTES # (MANUAL) 0.9 10^3/uL (0.0-1.0); PLATELET ESTIMATE, MANUAL NORMAL (130-450,000) (NORMAL); RBC MORPHOLOGY (MULTIPLE) NORMAL APPEARANCE (NORMAL)
[2019-08-31] MEDS: INSULIN ASPART 300 UNIT/3 ML PEN SUBQ SCH ×4 (08:00→21:48)
[2019-08-31] MEDS: FUROSEMIDE 20 MG TABLET PO SCH (08:58)
[2019-08-31] MEDS: ISOSORBIDE MONONITRATE ER 30 MG TABLET PO SCH (08:58)
[2019-08-31] MEDS: traMADol 50 MG TABLET PO SCH ×2 (08:59→21:49)
[2019-08-31] MEDS: ASPIRIN EC 81 MG TABLET PO SCH (08:59)
[2019-08-31] MEDS: METOPROLOL TARTRATE 50 MG TABLET PO SCH ×2 (08:59→21:51)
[2019-08-31] MEDS: MULTIVITAMIN TABLET PO SCH (08:59)
[2019-08-31] MEDS: ATORVASTATIN 10 MG TABLET PO SCH (08:59)
[2019-08-31] MEDS ORDERED: INSULIN GLARGINE 300 UNIT/3 ML PEN SUBQ ONE (09:00)
[2019-08-31] MEDS ORDERED: WARFARIN 1 MG TABLET PO SCH (09:00)
[2019-08-31] MEDS: lisinopriL 20 MG TABLET PO SCH (09:00)
[2019-08-31] MEDS: AREDS PRESERVISION PO SCH ×2 (09:05→21:47)
[2019-08-31] MEDS: WARFARIN 1 MG TABLET PO SCH (12:23)
--- NOTE | 2019-08-31 12:43 | PROVIDER PROGRESS NOTE ---
Subjective - Prog Note Date Prog Note Date: 08/31/19 Prog Note Time: 12:48 - Subjective Pt reports feeling: No change Subjective: This poor unfortunate elderly female continues to be unhappy at being here. So understandable when she keeps on telling us "I want to go home". She needs occasional prompting and cueing to cooperate in her resistance to staying here. But she is being strongly encouraged to follow through with therapies so that she can get stronger to go home and she cooperates. She needs a standby assist. If you try and touch her legs she withdraws and cries out with the pain. She appears to be more alert today. With her antibiotics stopped yesterday, she is remained afebrile and white cell count is stable. Current Medications - Current Medications Current Medications: Active Medications Acetaminophen (Tylenol) 650 mg PO Q6HR PRN PRN Reason: Pain 1 to 4 Hydrocodone Bitart/Acetaminophen ([place] 5/325) 1 tab PO Q4HR PRN PRN Reason: PAIN Last Admin: 08/31/19 05:12 Dose: 1 tab Aspirin (Ecotrin) 81 mg PO DAILY [facility] Last Admin: 08/31/19 08:59 Dose: 81 mg Atorvastatin Calcium (Lipitor) 20 mg PO QPM [facility] Last Admin: 08/31/19 08:59 Dose: 20 mg Carboxymethylcellulose (Refresh 1% Ophth Drops) 1 drops EACHEYE Q4HR PRN PRN Reason: Dry Eye Last Admin: 08/30/19 21:06 Dose: 1 drops Cholecalciferol (Vitamin D3) 1,000 unit PO DAILY [facility] Clonidine HCl (Catapres) 0.3 mg PO TID [facility] Last Admin: 08/31/19 05:13 Dose: 0.3 mg Furosemide (Lasix) 60 mg PO DAILY [facility] Last Admin: 08/31/19 08:58 Dose: 60 mg Insulin Aspart (Novolog) 1 - 5 unit SUBQ 0800,1200,1700,2100 [facility]; Protocol Last Admin: 08/31/19 11:42 Dose: 4 unit Insulin Glargine (Lantus Solostar) 15 unit SUBQ QDAC [facility] Isosorbide Mononitrate (Imdur) 120 mg PO DAILY [facility] Last Admin: 08/31/19 08:58 Dose: 120 mg Labetalol HCl (Trandate Syringe) 10 mg IVP Q4H PRN PRN Reason: PER PHYSICIAN ORDER Last Admin: 08/29/19 08:26 Dose: 10 mg Lactobacillus Rhamnosus (Culturelle) 1 cap PO DAILY [facility] Levothyroxine Sodium (Synthroid) 88 mcg PO QDAC [facility] Last Admin: 08/31/19 05:15 Dose: 88 mcg Lisinopril (Zestril) 20 mg PO DAILY [facility] Last Admin: 08/31/19 09:00 Dose: 20 mg Metoprolol Tartrate (Lopressor) 50 mg PO BID [facility] Last Admin: 08/31/19 08:59 Dose: 50 mg Morphine Sulfate (Morphine (Carpuject)) 2 mg IVP Q2HR PRN PRN Reason: PAIN Last Admin: 08/30/19 14:48 Dose: 2 mg Multivitamins (Theragran) 1 tab PO DAILY [facility] Last Admin: 08/31/19 08:59 Dose: 1 tab (Areds Preservision (1 Tab)) 1 tab PO BID [facility] Last Admin: 08/31/19 09:05 Dose: Not Given Pantoprazole Sodium (Protonix) 40 mg PO QDAC [facility] Last Admin: 08/31/19 05:13 Dose: 40 mg Sodium Chloride (Normal Saline Flush 0.9%) 10 ml IVP PRN PRN PRN Reason: NEEDED PER PROVIDER ORDERS Last Admin: 08/30/19 04:52 Dose: 10 ml Sodium Chloride (Normal Saline Flush 0.9%) 10 ml IVP 0100,0900,1700 [facility] Last Admin: 08/31/19 09:06 Dose: 10 ml Tramadol HCl (Ultram) 50 mg PO BID [facility] Last Admin: 08/31/19 08:59 Dose: 50 mg Tramadol HCl (Ultram) 50 mg PO DAILY PRN PRN Reason: PAIN Last Admin: 08/29/19 19:18 Dose: 50 mg Trazodone HCl (Desyrel) 100 mg PO QPM [facility] Last Admin: 08/30/19 21:09 Dose: 100 mg Warfarin Sodium (Coumadin) 3 mg PO MOWEFR@0900 [facility] Last Admin: 08/31/19 12:23 Dose: 3 mg Warfarin Sodium (Coumadin) 2 mg PO SUTUTHSA@0900 [facility] Areds Preservision 1 tab PO BID 08/25/19 Aspirin [Aspirin EC] 81 mg PO DAILY 08/25/19 Ca/Mag/Zinc 1 tab PO DAILY 08/25/19 Cholecalciferol (Vitamin D3) [Vitamin D3] 2,000 units PO DAILY 08/25/19 Flaxseed Oil 1 cap PO DAILY 08/25/19 Furosemide 60 mg PO DAILY 08/25/19 Insulin Glargine [Lantus Solostar] 8 unit SQ QDBREAKFAST 08/25/19 Insulin Lispro [Humalog] 4 unit SQ BIDAC 08/25/19 Isosorbide Mononitrate ER [Imdur] 120 mg PO DAILY 08/25/19 Levothyroxine [Synthroid] 88 mcg PO QDAC 08/25/19 Metoprolol Tartrate 50 mg PO BID 08/25/19 Sitagliptin Phosphate [Januvia] 50 mg PO DAILY 08/25/19 Trazodone HCl 100 mg PO QPM 08/25/19 Warfarin [Coumadin] 2 mg PO SUTUTHSA@0900 08/25/19 Warfarin [Coumadin] 3 mg PO MOWEFR@0900 08/25/19 Acetaminophen 650 mg PO BID 08/29/19 Atorvastatin Calcium 20 mg PO QPM 08/29/19 Multivitamin [Theragran] 1 tab PO DAILY 08/29/19 Mupirocin 1 applic TOP DAILY 08/29/19 Sitagliptin Phosphate [Januvia] 50 mg PO DAILY 08/29/19 Tramadol HCl 50 mg PO BID 08/29/19 Tramadol HCl 50 mg PO DAILY PRN 08/29/19 cloNIDine HCL [Clonidine HCl] 0.3 mg PO TID 08/29/19 lisinopriL [Lisinopril] 20 mg PO DAILY 08/29/19 Objective - Vital Signs/Intake & Output Reviewed Vital Signs: Yes Vital Signs: Vital Signs x48h Temp Pulse Resp BP Pulse Ox 08/31/19 11:12 36.7 C 84 18 150/73 H 100 08/31/19 07:29 36.4 C L 76 20 140/64 H 100 08/31/19 04:55 36.5 C 77 16 148/74 H 100 Intake & Output: Intake & Output 08/28/19 08/29/19 08/30/19 08/31/19 23:59 23:59 23:59 23:59 Intake Total 1220 1250 780 Output Total 900 750 Balance 320 500 780 - Objective General Appearance: positive: Alert, Other (Elderly female who is 4 foot 6 inches tall and weighs 70.5 kg) Eyes Bilateral: positive: PERRL ENT: positive: Pharynx nml Neck: positive: No JVD. negative: Stiff neck Respiratory: positive: Chest non-tender, No respiratory distress, Other (Breath sounds are diminished at bases with slow shallow respirations). negative: Wheezes, Rales, Rhonchi Cardiovascular: positive: Regular rate & rhythm, Systolic murmur. negative: Gallop/S4, Friction rub Abdomen: positive: Non-tender, No organomegaly, Nml bowel sounds, No distention Skin: positive: Other (Wounds include a left buttock skin tear that is 1.5 cm wide and 0.1 cm deep. It is healing. Foam dressing applied. She has a right distal leg full-thickness skin tear. She has a left leg distal full-thickness tear x2. All of the skin tears are superimposed on severe venous stasis changes of skin breaks, oozing, painful to touch. No spread of pinkness or redness between yesterday and today.) Extremities: positive: Pedal edema, Other (skin tender to touch) Neurologic/Psychiatric: positive: CN's nml (2-12), Motor nml, Disoriented to place, Disoriented to time, Weakness (generalized) - Lab Results Fish Bones: 08/31/19 04:35 08/31/19 04:35 Other Labs: Lab Results x24hrs 08/31/19 08/31/19 08/31/19 Range/Units 04:35 04:35 04:35 WBC 12.4 H (4.8-10.8) x10^3/uL RBC 3.88 L (4.20-5.40) 10^6/uL Hgb 10.2 L (12.0-16.0) g/dL Hct 32.2 L (37.0-47.0) % MCV 83.0 (81.0-99.0) fL MCH 26.3 L (27.0-31.0) pg MCHC 31.7 L (32.0-36.0) g/dL RDW 17.4 H (12.0-15.0) % Plt Count 265 (130-450) 10^3/uL MPV 9.6 (7.9-10.8) fL Neut # (Auto) Not Reportable Lymph # (Auto) Not Reportable [place] # (Auto) Not Reportable Eos # (Auto) Not Reportable Baso # (Auto) Not Reportable Absolute Nucleated RBC Not Reportable Total Counted 100 Band Neuts % (Manual) 1 (0 - 10) % Abnorm Lymph % (Manual) 0 % Nucleated RBC % Not Reportable Neutrophils # (Manual) 10.2 H (1.5-6.6) 10^3/uL Lymphocytes # (Manual) 0.5 L (1.5-3.5) 10^3/uL Monocytes # (Manual) 0.9 (0.0-1.0) 10^3/uL Eosinophils # (Manual) 0.7 (0-0.7) 10^3/uL Basophils # (Manual) 0.1 (0-0.1) 10^3/uL Differential Comment MANUAL DIFFERENTIAL Platelet Estimate NORMAL (130-450,000) (NORMAL) RBC Morph Micro Appear NORMAL APPEARANCE (NORMAL) PT 19.6 H (9.9-12.6) secs INR 1.8 H (0.8-1.2) Sodium 135 (135-145) mmol/L Potassium 4.2 (3.5-5.0) mmol/L Chloride 95 L (101-111) mmol/L Carbon Dioxide 31 (21-32) mmol/L Anion Gap 9.0 (6-13) BUN 31 H (6-20) mg/dL Creatinine 1.2 H (0.4-1.0) mg/dL Estimated GFR (MDRD) 42 L (>89) Glucose 319 H (70-100) mg/dL Calcium 8.8 (8.5-10.3) mg/dL ABX Reporting Has patient been on IV antibiotics over the past 48 hours?: Yes Assessment/Plan - Problem List (1) Venous stasis dermatitis of both lower extremities Impression: Bood cultures drawn (Palliative care consultation notified me that the patient has had a history of multiple myeloma. She received interferon for 5 years and has not been treated since 1994. She also has had a chronically elevated white cell count since 2016.) Patient started on vancomycin, cefepime and clindamycin here because thought was severe cellulitis, She was initially treated by her primary care provider with penicillin but did not improve. Vancomycin then recommended by her [facility] at [facility] after skin cultures from August 02 showed multiple, multiple bacterial growth of Chryseobacterium and enterococcus faecalis. Keflex and mupirocin prescribed August 02. Wound care consulted to continue following patient for the weeping blisters in her lower extremity. She last saw wound care on August 25, 2019 at the [facility]. This elderly female does not have a fever. White cell count has been intermittently elevated since 2016. She does have periods where they come down to normal. In March she was 10.6, and this admission she has been 13.1, 15, 13.3. Although she was admitted as a cellulitis , I am stopped her antibiotics and focused on aggressive wound care of this severely inflamed legs, and see if she spikes a fever or has further temperature. If she does, I will then start antibiotics with imipenem or Levaquin. Her antibiotic profile on August 02 showed a resistant to cefepime, cefotaxime, ceftriaxone. So far she has not had a fever spike. And her white cell count is 12.4 thousand. Wound care dressing changes instituted with Coban dressing. The plan is also for her to get an Unna boot. (2) Supratherapeutic INR Conclusion/Plan: Patient's INR was 6.3. She was on Coumadin for atrial fibrillation and it has been held. given vitamin K for high level this am. Laboratory Tests 08/28/19 08/29/19 08/30/19 23:00 05:55 05:20 INR 6.3 H* 5.1 H* 7.0 H* There may be an issue with her getting her medications on a regular basis. Even though she has Res care to help her with her medication, they can only prompt her to take them. It is unclear if she is compliant. In view of the fact that she takes antibiotics and Coumadin, there is also the possibility of an interaction. Today INR is 1.8 and coumadin resumed. Continue to monitor daily. (3) CHF (congestive heart failure), right Conclusion/Plan: Continue patient's Lasix 60 mg p.o. daily since now verified. Echocardiogram done August 2016 shows a normal ejection fraction of 65 to 70%. Moderate abnormal right heart pressures. At that time her RVSP at rest was 60 mmHg which was starting to get higher from the previous exam of March 2016. Selected Entries 08/28/19 08/29/19 08/30/19 21:55 03:01 16:25 Weight (kg) 68.039 kg 69 kg 69 kg 08/31/19 06:00 Weight (kg) 70.5 kg Laboratory Tests 08/31/19 04:35 INR 1.8 H (4) Hypertension Conclusion/Plan: It appears patient is on multiple antihypertensive medications. Her medications were verified by pharmacy and she is on clonidine, Lasix 60 mg d aily, Imdur 120 mg daily, lisinopril 20 mg daily, metoprolol tartrate 50 mg twice daily, and I suspect the Imdur may be contributing to her edema. Catapres 0.3, 3 times daily, Lasix 60 daily, Imdur 120 daily, lisinopril 20 daily and metoprolol tartrate 50 twice daily were all resumed. Blood pressure 111-150 sytolic today. No changes. (5) Diabetes mellitus Conclusion/Plan: Patient is on Lantus 8 units subcu q. AC at home and Januvia. Hemoglobin A1c 9.1 %. She initially started with a controlled glucose on the first day and then started spiking that night. Yesterday she was 94 and 64 but 269 by the afternoon. Yesterday afternoon and evening she went to 345, this morning she is 310, 285, and 312. No steroids. The only change instituted yesterday was stopping her antibiotics. Plan: Increase Lantus to 15 units and give fixed dose nutritional insulin of 5 units with meals Qualifiers: Diabetes mellitus type: type 2 (6) Hypothyroidism Conclusion/Plan: Patient is on Synthroid 88 mcg daily. (7) Atrial fibrillation Conclusion/Plan: Patient is rate controlled on metoprolol 50 mg p.o. twice daily. Resume coumadin for INR 1.8 (8) Chronic pain Conclusion/Plan: Who manage pain with IV and oral pain medications. (9) BENJAMIN (obstructive sleep apnea) Conclusion/Plan: We will continue patient's home CPAP (10) Hyperlipemia Conclusion/Plan: Patient is on atorvastatin. (11) Physical deconditioning Conclusion/Plan: It appears patient's overall health is steadily declining. This is becoming more than her son can manage at home. Her son lives with her. [place] Daughter lives in [place]. Social work explains to me that multiple conversations were had with the daughter today who is the power of traffic law attorney. Unfortunately the daughter is designated DPOA and the son is designated as financial provider. However no paperwork is been done or filed. Daughter has made it clear she does not want mom to be placed in a fdc facility for rehab or wound management. She states that she will drive here and take care of mom 27/10 in her own home. Daughter states that they have been trying to get home health for over 2 months. I have ordered Home Health with PT/OT/bath aide to make sure it is in place for discharge. Palliative care consult has also been requested. SW will call [facility] care to make sure they are going to her home since family states they are not showiing up.
[2019-08-31] MEDS: CARBOXYMETHYLCELLULOSE OPHTH DROPS EACHEYE PRN ×2 (13:48→16:56)
[2019-08-31] MEDS: LACTOBACILLUS RHAMNOSUS GG CAPSULE PO SCH (16:42)
[2019-08-31] MEDS: CHOLECALCIFEROL 1,000 UNIT TABLET PO SCH (16:42)
--- NOTE | 2019-08-31 19:58 | CONSULTATION NOTE ---
Palliative Care Follow Up - Referral Referring Provider: Dr. Brittney Reyes Time of Visit: [id number] Referral setting: Hospitalized patient Referral Reason: Advanced Care Planning/Chronic Venous Stasis - Information Sources Records reviewed: Previous records reviewed History/Review of Systems obtained from: Patient, Family (daughter, christopher), Other (social work, hospitalist Dr. Reyes and virgie) Exam limitations: Clinical condition (memory deficit) - History of Present Illness Update Brief HPI Update: This is a frail 89-year-old female who was seen and evaluated today at the request of the hospitalist service for an inpatient consultation due to patient's report of lower extremity edema pain, advance care planning, chronic venous stasis. The patient was seen on August 24 for an initial palliative care consultation and was pending admission to home health nursing. The patient had been expressing concerns regarding her lower extremities. She had been seen by dermatology last evaluated August 03, 2019 due to cellulitis and she completed a course of Keflex however, her wound culture showed resistance to Keflex. She underwent allergy testing and then was started on a 10-day course of amoxicillin 08/10/2019 that she completed. The patient over the weekend developed increased weeping to her legs as well as LE pain with a skin tear and EMS was called by the patient's son and she was transported to [facility] ER and she was admitted for cellulitis. She was started on antibiotic therapy, which was stopped yesterday and the patient's WBC count has not increased and she has remained afebrile. Wound Care evaluation was preformed and patient is to be initiation of xeroform, and unna boot that is secured by coban. On evaluation today the patient is quite disgrunted about continuing to be in the hospital and adamantly expresses her desire to return home. She has dressings in place to her BLE and is stilling out of bed in her recliner chair with chair alarm in place. The patient reports to discomfort to her LE and desires to return to bed. Patient has a past medical history of atrial fibrillation on anticoagulation, chronic diastolic heart failure, chronic kidney disease, hypertension, diabetes mellitus type 2, cognitive impairment, secondary hyperaldosteronism, sleep apnea with CPAP use, hyperlipidemia, hypothyroidism, macular degeneration, chronic back pain, actinic keratosis, lower extremity edema and cellulitis, multiple myeloma diagnosed in 1989 status post interferon, CVA. Social History - Living Situation Living arrangement: At home Living Situation: With family (son, Rafal) Support System: The patient has been and . She is presently . She has 5 children. Her oldest daughter, Christopher Segundo oversees her medical care ([phone] (. Her daughter Christopher resides in [facility] which is approximately 4 hours away. The patient resides in a home with her son, Rafal, on a property that she inherited from her father on [address]. Christopher manages her medications through a pillbox and Rafal prompts the patient for her morning and evening medications. Her son Rafal works during the day and is away from the home. The patient has caregivers through rest care that, during the day and prompt the patient to take her medications midday. Medications/Allergies - Medications Active Medication List: Active Medications Acetaminophen (Tylenol) 650 mg PO Q6HR PRN PRN Reason: Pain 1 to 4 Hydrocodone Bitart/Acetaminophen (Entriken 5/325) 1 tab PO Q4HR PRN PRN Reason: PAIN Last Admin: 08/31/19 16:41 Dose: 1 tab Aspirin (Ecotrin) 81 mg PO DAILY [facility] Last Admin: 08/31/19 08:59 Dose: 81 mg Atorvastatin Calcium (Lipitor) 20 mg PO QPM [facility] Last Admin: 08/31/19 08:59 Dose: 20 mg Carboxymethylcellulose (Refresh 1% Ophth Drops) 1 drops EACHEYE Q4HR PRN PRN Reason: Dry Eye Last Admin: 08/31/19 16:56 Dose: 1 drops Cholecalciferol (Vitamin D3) 1,000 unit PO DAILY [facility] Last Admin: 08/31/19 16:42 Dose: 1,000 unit Clonidine HCl (Catapres) 0.3 mg PO TID [facility] Last Admin: 08/31/19 13:48 Dose: 0.3 mg Furosemide (Lasix) 60 mg PO DAILY [facility] Last Admin: 08/31/19 08:58 Dose: 60 mg Insulin Aspart (Novolog) 1 - 9 unit SUBQ 0800,1200,1700,2100 [facility]; Protocol Last Admin: 08/31/19 16:50 Dose: 1 unit Insulin Glargine (Lantus Solostar) 15 unit SUBQ QDAC [facility] Isosorbide Mononitrate (Imdur) 120 mg PO DAILY [facility] Last Admin: 08/31/19 08:58 Dose: 120 mg Labetalol HCl (Trandate Syringe) 10 mg IVP Q4H PRN PRN Reason: PER PHYSICIAN ORDER Last Admin: 08/29/19 08:26 Dose: 10 mg Lactobacillus Rhamnosus (Culturelle) 1 cap PO DAILY [facility] Last Admin: 08/31/19 16:42 Dose: 1 cap Levothyroxine Sodium (Synthroid) 88 mcg PO QDAC [facility] Last Admin: 08/31/19 05:15 Dose: 88 mcg Lisinopril (Zestril) 20 mg PO DAILY [facility] Last Admin: 08/31/19 09:00 Dose: 20 mg Metoprolol Tartrate (Lopressor) 50 mg PO BID [facility] Last Admin: 08/31/19 08:59 Dose: 50 mg Morphine Sulfate (Morphine (Carpuject)) 2 mg IVP Q2HR PRN PRN Reason: PAIN Last Admin: 08/30/19 14:48 Dose: 2 mg Multivitamins (Theragran) 1 tab PO DAILY [facility] Last Admin: 08/31/19 08:59 Dose: 1 tab (Areds Preservision (1 Tab)) 1 tab PO BID [facility] Last Admin: 08/31/19 09:05 Dose: Not Given Pantoprazole Sodium (Protonix) 40 mg PO QDAC [facility] Last Admin: 08/31/19 05:13 Dose: 40 mg Sodium Chloride (Normal Saline Flush 0.9%) 10 ml IVP PRN PRN PRN Reason: NEEDED PER PROVIDER ORDERS Last Admin: 08/30/19 04:52 Dose: 10 ml Sodium Chloride (Normal Saline Flush 0.9%) 10 ml IVP 0100,0900,1700 [facility] Last Admin: 08/31/19 16:42 Dose: 10 ml Tramadol HCl (Ultram) 50 mg PO BID [facility] Last Admin: 08/31/19 08:59 Dose: 50 mg Tramadol HCl (Ultram) 50 mg PO DAILY PRN PRN Reason: PAIN Last Admin: 08/29/19 19:18 Dose: 50 mg Trazodone HCl (Desyrel) 100 mg PO QPM [facility] Last Admin: 08/30/19 21:09 Dose: 100 mg Warfarin Sodium (Coumadin) 3 mg PO MOWEFR@0900 [facility] Last Admin: 08/31/19 12:23 Dose: 3 mg Warfarin Sodium (Coumadin) 2 mg PO SUTUTHSA@0900 [facility] Areds Preservision 1 tab PO BID 08/25/19 Aspirin [Aspirin EC] 81 mg PO DAILY 08/25/19 Ca/Mag/Zinc 1 tab PO DAILY 08/25/19 Cholecalciferol (Vitamin D3) [Vitamin D3] 2,000 units PO DAILY 08/25/19 Flaxseed Oil 1 cap PO DAILY 08/25/19 Furosemide 60 mg PO DAILY 08/25/19 Insulin Glargine [Lantus Solostar] 8 unit SQ QDBREAKFAST 08/25/19 Insulin Lispro [Humalog] 4 unit SQ BIDAC 08/25/19 Isosorbide Mononitrate ER [Imdur] 120 mg PO DAILY 08/25/19 Levothyroxine [Synthroid] 88 mcg PO QDAC 08/25/19 Metoprolol Tartrate 50 mg PO BID 08/25/19 Sitagliptin Phosphate [Januvia] 50 mg PO DAILY 08/25/19 Trazodone HCl 100 mg PO QPM 08/25/19 Warfarin [Coumadin] 2 mg PO SUTUTHSA@0900 08/25/19 Warfarin [Coumadin] 3 mg PO MOWEFR@0900 08/25/19 Acetaminophen 650 mg PO BID 08/29/19 Atorvastatin Calcium 20 mg PO QPM 08/29/19 Multivitamin [Theragran] 1 tab PO DAILY 08/29/19 Mupirocin 1 applic TOP DAILY 08/29/19 Sitagliptin Phosphate [Januvia] 50 mg PO DAILY 08/29/19 Tramadol HCl 50 mg PO BID 08/29/19 Tramadol HCl 50 mg PO DAILY PRN 08/29/19 cloNIDine HCL [Clonidine HCl] 0.3 mg PO TID 08/29/19 lisinopriL [Lisinopril] 20 mg PO DAILY 08/29/19 - Allergies Allergies/Adverse Reactions: Allergies Allergy/AdvReac Type Severity Reaction Status Date / Time pregabalin [From Lyrica] Allergy Severe Hives Verified 08/28/19 21:55 Iodinated Contrast Media Allergy Hives Verified 08/29/19 12:50 amlodipine AdvReac Edema Verified 08/28/19 21:55 Review of Systems - Constitutional Constitutional: denies: Fever - Eyes Eyes: reports: Vision loss, Corrective lenses - Ears, Nose & Throat Ears, Nose & Throat: denies: Hearing loss - Cardiovascular Cardiovascular: reports: Edema. denies: Chest pain - Respiratory Respiratory: denies: Cough - Gastrointestinal Gastrointestinal: reports: Good appetite. denies: Abdominal pain, Vomiting - Genitourinary Genitourinary: denies: Dysuria - Musculoskeletal Musculoskeletal: reports: Assistive devices, Transfer issues - Integumentary Integumentary: reports: Other (LE venous stasis changes) - Neurological Neurological: reports: General weakness, Memory problems - Endocrine Endocrine: reports: Diabetes type 2, Hypothyroidism - Hematologic/Lymphatic Hematologic/Lymphatic: reports: Bruising - All Other Systems All Other Systems: reports: Reviewed and negative Physical Exam - Vital Signs Vital Signs: Vital Signs x48h Temp Pulse Resp BP Pulse Ox 08/31/19 16:19 36.5 C 86 20 157/66 H 100 - Physical Exam General Appearance: positive: Alert, Other (frail, chronically ill appearing, OOB in recliner chair) Eyes Bilateral: positive: Normal inspection, Other (+corrective lenses) ENT: positive: No signs of dehydration Neck: positive: Trachea midline Cardiovascular: positive: Regular rate & rhythm, Systolic murmur Respiratory: positive: No respiratory distress, Breath sounds nml, Other (supplemental oxygen in place with NC) Abdomen: positive: Non-tender, Soft, Nml bowel sounds Skin: positive: Other (+Telangiectasia to bilateral cheeks; generalized scattered ecchymoses with thin, fragile skin; Dressings to BLE C/D/I--see wound care notes for full details) Extremities: positive: Pedal edema Neurologic/Psychiatric: positive: Disoriented to place, Disoriented to time, Weakness Palliative Care - POLST Patient has POLST: No Pain: Pain unchanged (bilateral lower extremities) Performance Status: At baseline patient is ambulatory with a Rollator at a very slow pace. She has a history of falls. Last fall was 08/20 that required a lift assist from EMS. She becomes easily fatigued during ambulation. She requires caregiving assistance. She is incontinent of urine. - Palliative Care Discussion: The patient remains quite adamant that she wishes to return home and does not wish to be present within the hospital. Outside of her expression to return home the patient is unable to participate further in regards to goals of care in her present cognitive impairment which is likely exacerbated by her hospitalization. Upon review with the patient's daughter, Dee today she continues to report that she wishes for the patient to return home and not be discharged to [facility] facility for wound care. Dee recognizes and acknowledges that the patient needs more oversight and supervision and he is looking to move into the patient's home for assistance providing 24-hour supervision once the patient is discharged from the hospital. The patient's children wish to honor the patient's underlying wishes to remain at home and to not be placed in a facility. Discussed with daughter Dee, We wish to hope for the best but prepare for the worse. Again outlined today that in the future there may come a time that additional care might need to be implemented with fur ther services for the patient to remain at home or she may need to transition to a facility level of care with understanding verbalized. At the present time per the family's wishes and medical team on site the goal is to have the patient discharged with 24-hour supervision with her family with added letter of support by home health nursing for lower extremity wound and edema management, PT and OT as well as at home health aide. The daughter is aware that the services are not long-term but are available to assist the patient to obtain optimization regarding her health. The patient has previously filled out D POA and living will paperwork. Dee states that she does not have copy of the paperwork within her home and her brother, Rafal is to look for the paperwork with in the patient's home in order to move forward with additional goals of care and advance care planning. Results - Lab Results Lab results reviewed: Yes Fish Bones: 08/31/19 04:35 08/31/19 04:35 Lab and Imaging Results: Lab Results x24hrs 08/31/19 08/31/19 08/31/19 Range/Units 04:35 04:35 04:35 WBC 12.4 H (4.8-10.8) x10^3/uL RBC 3.88 L (4.20-5.40) 10^6/uL Hgb 10.2 L (12.0-16.0) g/dL Hct 32.2 L (37.0-47.0) % MCV 83.0 (81.0-99.0) fL MCH 26.3 L (27.0-31.0) pg MCHC 31.7 L (32.0-36.0) g/dL RDW 17.4 H (12.0-15.0) % Plt Count 265 (130-450) 10^3/uL MPV 9.6 (7.9-10.8) fL Neut # (Auto) Not Reportable Lymph # (Auto) Not Reportable [place]ar # (Auto) Not Reportable Eos # (Auto) Not Reportable Baso # (Auto) Not Reportable Absolute Nucleated RBC Not Reportable Total Counted 100 Band Neuts % (Manual) 1 (0 - 10) % Abnorm Lymph % (Manual) 0 % Nucleated RBC % Not Reportable Neutrophils # (Manual) 10.2 H (1.5-6.6) 10^3/uL Lymphocytes # (Manual) 0.5 L (1.5-3.5) 10^3/uL Monocytes # (Manual) 0.9 (0.0-1.0) 10^3/uL Eosinophils # (Manual) 0.7 (0-0.7) 10^3/uL Basophils # (Manual) 0.1 (0-0.1) 10^3/uL Differential Comment MANUAL DIFFERENTIAL Platelet Estimate NORMAL (130-450,000) (NORMAL) RBC Morph Micro Appear NORMAL APPEARANCE (NORMAL) PT 19.6 H (9.9-12.6) secs INR 1.8 H (0.8-1.2) Sodium 135 (135-145) mmol/L Potassium 4.2 (3.5-5.0) mmol/L Chloride 95 L (101-111) mmol/L Carbon Dioxide 31 (21-32) mmol/L Anion Gap 9.0 (6-13) BUN 31 H (6-20) mg/dL Creatinine 1.2 H (0.4-1.0) mg/dL Estimated GFR (MDRD) 42 L (>89) Glucose 319 H (70-100) mg/dL Calcium 8.8 (8.5-10.3) mg/dL Impression and Recommendations - Palliative Care Impression: This is a frail, chronically ill-appearing 89-year-old with a significant past medical history of cognitive impairment, hypertension, chronic kidney disease, diabetes mellitus type 2, hyperlipidemia and congestive heart failure with bilateral lower extremity edema. She has chronic venous stasis dermatitis to her BLE and framing specialist on site has been consulted with dressings in p lace to BLE. Patient desires to return home. Recommendations/Counseling Done: 1. Chronic Venous stasis dermatitis to BLE. Patient's IV antibiotics have been been discontinued since 08/30/2019 afebrile. Defer to hospitalist team regarding management and following W trend. Blood cultures obtained presently without growth. s/p wound care consultation while inpatient with recommendations. The patient is to be followed by home health nursing upon discharge for management. 2. Congestive heart failure with bilateral lower extremity edema.Continue furosemide 60 mg daily. Patient followed by outpatient manager safe. Goal is for LE compression to reduce BLE edema to improve the patient's overall comfort and function. 3. Chronic kidney disease secondary to diabetes mellitus type 2 and hypertension. Avoid nephrotoxic medications. Continue to monitor creatinine. Creatinine range this hospitalization 1.0-1.2. Discussed with daughterChristopher and will forward copy of lab results to passementerie worker, Dr. Garcia upon discharge. 4. Cognitive impairment. Patient requires queuing. Underlying impairment likely exacerbated due to hospitalization and will hopefully return to baseline status upon return home in her familiar environment. 5. Physical deconditioning. Multifactorial with chronic co-morbidities. Will benefit from home health PT and OT for strengthening, fall prevention, safety and energy conservation upon discharge. 6. Chronic pain and LE pain due to edema. Compression to LE as ordered to reduce LE edema and reduce discomfort. Continue tramadol 50mg BID as ordered and once daily PRN, as previous home dose. Continue additional PRN pain medication as per hospitalist team and WHO guidelines. 7. Advanced care planning. Patient does not have a POLST on record and has previously completed DPOA paperwork and a living will that her children, Christopher and Rafal are looking into obtaining the paperwork. The patient is presently not able to participate in decision making given her cognitive impairment at the present time, but the hope that upon discharge a goals of care discussion will be had with the patient and her daughter, Christopher present who is healthcare DPOA. Goal is to also have copies of DPOA paperwork that designates Christopher as DPOA of the patient's 5 children. Palliative care to continue to build rapport and explore goals of care with the patient and the family moving forward and upon discharge. DaughterChristopher had additional questions regarding the patient's hospitalization and deferred to Dr. Reyes who is to contact the daughter in follow-up to address her questions. Time Spent: Total time spent 60 minutes with greater than 50% of this spent in counseling and coordination of care with SW, hospitalist, patient and daughter, Christopher;examination of the patient; review of medical records; and anticipatory guidance. Disclaimer: The chart note was formulated using voice recognition technology and unfortunately sound alike errors may occur.
[2019-08-31] MEDS: polyethylene glycoL 3350 17 GM PACKET PO SCH (21:48)
[2019-08-31] MEDS: traZODone 50 MG TABLET PO SCH (21:49)
[2019-09-01] MEDS: HYDROcod/ACETAM 5/325 MG TABLET PO PRN ×3 (00:12→14:29)
[2019-09-01] MEDS: SODIUM CHLORIDE FLUSH 0.9% 10 ML SYRINGE IVP SCH ×3 (00:24→17:01)
[2019-09-01 05:27] LABS: BASOPHILS # (AUTO) 0.1 10^3/uL (0.0-0.1); BASOPHILS % (AUTO) 0.8 %; EOSINOPHILS # (AUTO) 0.8 10^3/uL (0.0-0.7); EOSINOPHILS % (AUTO) 6.6 %; HGB - HEMOGLOBIN 10.5 g/dL (12.0-16.0); LYMPHOCYTES # (AUTO) 1.7 10^3/uL (1.5-3.5); LYMPHOCYTES % (AUTO) 13.7 %; MEAN CORPUSCULAR HEMOGLOBIN 24.8 pg (27.0-31.0); MEAN CORPUSCULAR HGB CONC 31.1 g/dL (32.0-36.0); MEAN CORPUSCULAR VOLUME 79.9 fL (81.0-99.0); MEAN PLATELET VOLUME 9.4 fL (7.9-10.8); MONOCYTES # (AUTO) 1.5 10^3/uL (0.0-1.0); NEUTROPHILS # (AUTO) 8.2 10^3/uL (1.5-6.6); NEUTROPHILS % (AUTO) 65.9 %; PLT - PLATELET COUNT 302 10^3/uL (130-450); RED BLOOD COUNT 4.23 10^6/uL (4.20-5.40); RED CELL DISTRIBUTION WIDTH 17.2 % (12.0-15.0); WHITE BLOOD COUNT 12.5 x10^3/uL (4.8-10.8)
[2019-09-01 05:45] LABS: INR 1.3 (0.8-1.2); PT - PROTHROMBIN TIME 14.9 secs (9.9-12.6)
[2019-09-01] MEDS: cloNIDine 0.1 MG TABLET PO SCH ×3 (06:36→21:03)
[2019-09-01] MEDS: LEVOTHYROXINE 88 MCG TABLET PO SCH (06:37)
[2019-09-01] MEDS: PANTOPRAZOLE 40 MG TABLET PO SCH (06:37)
[2019-09-01] MEDS: INSULIN GLARGINE 300 UNIT/3 ML PEN SUBQ SCH (06:43)
[2019-09-01] MEDS: INSULIN ASPART 300 UNIT/3 ML PEN SUBQ SCH ×4 (07:52→21:02)
[2019-09-01] MEDS: ASPIRIN EC 81 MG TABLET PO SCH (08:17)
[2019-09-01] MEDS: FUROSEMIDE 20 MG TABLET PO SCH (08:17)
[2019-09-01] MEDS: CHOLECALCIFEROL 1,000 UNIT TABLET PO SCH (08:17)
[2019-09-01] MEDS: ISOSORBIDE MONONITRATE ER 30 MG TABLET PO SCH (08:19)
[2019-09-01] MEDS: METOPROLOL TARTRATE 50 MG TABLET PO SCH ×2 (08:20→21:03)
[2019-09-01] MEDS: LACTOBACILLUS RHAMNOSUS GG CAPSULE PO SCH (08:20)
[2019-09-01] MEDS: MULTIVITAMIN TABLET PO SCH (08:20)
[2019-09-01] MEDS: lisinopriL 20 MG TABLET PO SCH (08:20)
[2019-09-01] MEDS: AREDS PRESERVISION PO SCH ×2 (08:21→20:58)
[2019-09-01] MEDS: polyethylene glycoL 3350 17 GM PACKET PO SCH (08:40)
[2019-09-01] MEDS: CARBOXYMETHYLCELLULOSE OPHTH DROPS EACHEYE PRN ×2 (08:46→17:09)
[2019-09-01] MEDS: traMADol 50 MG TABLET PO SCH ×2 (08:46→21:04)
[2019-09-01] MEDS ORDERED: WARFARIN 1 MG TABLET PO SCH (09:00)
[2019-09-01] MEDS: ENOXAPARIN 60 MG/0.6 ML SYRINGE SUBQ SCH (10:59)
--- NOTE | 2019-09-01 13:50 | PROVIDER PROGRESS NOTE ---
Subjective - Prog Note Date Prog Note Date: 09/01/19 Prog Note Time: 13:34 - Subjective Pt reports feeling: No change Subjective: alert, cooperative, wants to go home. Current Medications - Current Medications Current Medications: Active Medications Acetaminophen (Tylenol) 650 mg PO Q6HR PRN PRN Reason: Pain 1 to 4 Hydrocodone Bitart/Acetaminophen ([place] 5/325) 1 tab PO Q4HR PRN PRN Reason: PAIN Last Admin: 09/01/19 06:54 Dose: 1 tab Aspirin (Ecotrin) 81 mg PO DAILY [facility] Last Admin: 09/01/19 08:17 Dose: 81 mg Atorvastatin Calcium (Lipitor) 20 mg PO QPM [facility] Last Admin: 08/31/19 08:59 Dose: 20 mg Carboxymethylcellulose (Refresh 1% Ophth Drops) 1 drops EACHEYE Q4HR PRN PRN Reason: Dry Eye Last Admin: 09/01/19 08:46 Dose: 1 drops Cholecalciferol (Vitamin D3) 25 mcg PO DAILY [facility] Clonidine HCl (Catapres) 0.3 mg PO TID [facility] Last Admin: 09/01/19 06:36 Dose: 0.3 mg Enoxaparin Sodium (Lovenox) 60 mg SUBQ DAILY [facility] Last Admin: 09/01/19 10:59 Dose: 60 mg Furosemide (Lasix) 60 mg PO DAILY [facility] Last Admin: 09/01/19 08:17 Dose: 60 mg Insulin Aspart (Novolog) 1 - 9 unit SUBQ 0800,1200,1700,2100 [facility]; Protocol Last Admin: 09/01/19 11:30 Dose: 5 unit Insulin Glargine (Lantus Solostar) 15 unit SUBQ QDAC [facility] Last Admin: 09/01/19 06:43 Dose: 15 unit Isosorbide Mononitrate (Imdur) 120 mg PO DAILY [facility] Last Admin: 09/01/19 08:19 Dose: 120 mg Labetalol HCl (Trandate Syringe) 10 mg IVP Q4H PRN PRN Reason: PER PHYSICIAN ORDER Last Admin: 08/29/19 08:26 Dose: 10 mg Lactobacillus Rhamnosus (Culturelle) 1 cap PO DAILY [facility] Last Admin: 09/01/19 08:20 Dose: 1 cap Levothyroxine Sodium (Synthroid) 88 mcg PO QDAC [facility] Last Admin: 09/01/19 06:37 Dose: 88 mcg Lisinopril (Zestril) 20 mg PO DAILY [facility] Last Admin: 09/01/19 08:20 Dose: 20 mg Metoprolol Tartrate (Lopressor) 50 mg PO BID [facility] Last Admin: 09/01/19 08:20 Dose: 50 mg Morphine Sulfate (Morphine (Carpuject)) 2 mg IVP Q2HR PRN PRN Reason: PAIN Last Admin: 08/30/19 14:48 Dose: 2 mg Multivitamins (Theragran) 1 tab PO DAILY [facility] Last Admin: 09/01/19 08:20 Dose: 1 tab (Areds Preservision (1 Tab)) 1 tab PO BID [facility] Last Admin: 09/01/19 08:21 Dose: Not Given Pantoprazole Sodium (Protonix) 40 mg PO QDAC [facility] Last Admin: 09/01/19 06:37 Dose: 40 mg Polyethylene Glycol (Miralax) 17 gm PO DAILY [facility] Last Admin: 09/01/19 08:40 Dose: Not Given Sodium Chloride (Normal Saline Flush 0.9%) 10 ml IVP PRN PRN PRN Reason: NEEDED PER PROVIDER ORDERS Last Admin: 08/30/19 04:52 Dose: 10 ml Sodium Chloride (Normal Saline Flush 0.9%) 10 ml IVP 0100,0900,1700 [facility] Last Admin: 09/01/19 08:21 Dose: 10 ml Tramadol HCl (Ultram) 50 mg PO BID [facility] Last Admin: 09/01/19 08:46 Dose: 50 mg Tramadol HCl (Ultram) 50 mg PO DAILY PRN PRN Reason: PAIN Last Admin: 08/29/19 19:18 Dose: 50 mg Trazodone HCl (Desyrel) 100 mg PO QPM [facility] Last Admin: 08/31/19 21:49 Dose: 100 mg Warfarin Sodium (Coumadin) 3 mg PO MOWEFR@0900 [facility] Last Admin: 08/31/19 12:23 Dose: 3 mg Warfarin Sodium (Coumadin) 2 mg PO SUTUTHSA@0900 [facility] Last Admin: 09/01/19 08:49 Dose: 2 mg Areds Preservision 1 tab PO BID 08/25/19 Aspirin [Aspirin EC] 81 mg PO DAILY 08/25/19 Ca/Mag/Zinc 1 tab PO DAILY 08/25/19 Cholecalciferol (Vitamin D3) [Vitamin D3] 2,000 units PO DAILY 08/25/19 Flaxseed Oil 1 cap PO DAILY 08/25/19 Furosemide 60 mg PO DAILY 08/25/19 Insulin Glargine [Lantus Solostar] 8 unit SQ QDBREAKFAST 08/25/19 Insulin Lispro [Humalog] 4 unit SQ BIDAC 08/25/19 Isosorbide Mononitrate ER [Imdur] 120 mg PO DAILY 08/25/19 Levothyroxine [Synthroid] 88 mcg PO QDAC 08/25/19 Metoprolol Tartrate 50 mg PO BID 08/25/19 Sitagliptin Phosphate [Januvia] 50 mg PO DAILY 08/25/19 Trazodone HCl 100 mg PO QPM 08/25/19 Warfarin [Coumadin] 2 mg PO SUTUTHSA@0900 08/25/19 Warfarin [Coumadin] 3 mg PO MOWEFR@0900 08/25/19 Acetaminophen 650 mg PO BID 08/29/19 Atorvastatin Calcium 20 mg PO QPM 08/29/19 Multivitamin [Theragran] 1 tab PO DAILY 08/29/19 Mupirocin 1 applic TOP DAILY 08/29/19 Sitagliptin Phosphate [Januvia] 50 mg PO DAILY 08/29/19 Tramadol HCl 50 mg PO BID 08/29/19 Tramadol HCl 50 mg PO DAILY PRN 08/29/19 cloNIDine HCL [Clonidine HCl] 0.3 mg PO TID 08/29/19 lisinopriL [Lisinopril] 20 mg PO DAILY 08/29/19 Objective - Vital Signs/Intake & Output Reviewed Vital Signs: Yes Vital Signs: Vital Signs x48h Temp Pulse Resp BP BP BP Pulse Ox 09/01/19 12:48 36.5 C 83 20 150/77 H 100 09/01/19 08:20 180/88 H 09/01/19 07:26 36.5 C 88 20 180/88 H 92 09/01/19 06:35 86 145/65 H 09/01/19 05:35 36.7 C 82 18 150/70 H 95 Intake & Output: Intake & Output 08/29/19 08/30/19 08/31/19 09/01/19 23:59 23:59 23:59 23:59 Intake Total 1220 1250 1740 390 Output Total 900 750 300 Balance 565 853 0882 90 - Objective General Appearance: positive: No acute distress, Alert, Other (vague, smiling, asking to go home, gets up w hesitation and grabs onto walker, hunched over) Eyes Bilateral: positive: PERRL Neck: positive: No JVD. negative: Stiff neck Respiratory: positive: Chest non-tender, No respiratory distress. negative: Wheezes, Rales, Rhonchi Cardiovascular: positive: Irregularly irregular. negative: Gallop/S4, Friction rub Abdomen: positive: Non-tender, No organomegaly, Nml bowel sounds, No distention Extremities: positive: Full ROM, Other (legs wrapped and jem boots are on since yesterday) Neurologic/Psychiatric: positive: CN's nml (2-12), Motor nml, Disoriented to place, Disoriented to time, Weakness (generalized) - Lab Results Fish Bones: 09/01/19 05:00 09/01/19 05:00 Other Labs: Lab Results x24hrs 09/01/19 09/01/19 09/01/19 Range/Units 05:00 05:00 05:00 Specimen Type wbc, look for cml WBC (4.8-10.8) x10^3/uL RBC (4.20-5.40) 10^6/uL Hgb (12.0-16.0) g/dL Hct (37.0-47.0) % MCV (81.0-99.0) fL MCH (27.0-31.0) pg MCHC (32.0-36.0) g/dL RDW (12.0-15.0) % Plt Count (130-450) 10^3/uL MPV (7.9-10.8) fL Neut # (Auto) (1.5-6.6) 10^3/uL Lymph # (Auto) (1.5-3.5) 10^3/uL [place] # (Auto) (0.0-1.0) 10^3/uL Eos # (Auto) (0.0-0.7) 10^3/uL Baso # (Auto) (0.0-0.1) 10^3/uL Absolute Nucleated RBC x10^3/uL Nucleated RBC % /100WBC PT 14.9 H (9.9-12.6) secs INR 1.3 H (0.8-1.2) Sodium 132 L (135-145) mmol/L Potassium 4.1 (3.5-5.0) mmol/L Chloride 92 L (101-111) mmol/L Carbon Dioxide 31 (21-32) mmol/L Anion Gap 9.0 (6-13) BUN 27 H (6-20) mg/dL Creatinine 1.0 (0.4-1.0) mg/dL Estimated GFR (MDRD) 52 L (>89) Glucose 164 H (70-100) mg/dL Calcium 9.0 (8.5-10.3) mg/dL Slides for Path Review PATH SLIDE REVIEW 09/01/19 Range/Units 05:00 Specimen Type WBC 12.5 H (4.8-10.8) x10^3/uL RBC 4.23 (4.20-5.40) 10^6/uL Hgb 10.5 L (12.0-16.0) g/dL Hct 33.8 L (37.0-47.0) % MCV 79.9 L (81.0-99.0) fL MCH 24.8 L (27.0-31.0) pg MCHC 31.1 L (32.0-36.0) g/dL RDW 17.2 H (12.0-15.0) % Plt Count 302 (130-450) 10^3/uL MPV 9.4 (7.9-10.8) fL Neut # (Auto) 8.2 H (1.5-6.6) 10^3/uL Lymph # (Auto) 1.7 (1.5-3.5) 10^3/uL [place] # (Auto) 1.5 H (0.0-1.0) 10^3/uL Eos # (Auto) 0.8 H (0.0-0.7) 10^3/uL Baso # (Auto) 0.1 (0.0-0.1) 10^3/uL Absolute Nucleated RBC 0.02 x10^3/uL Nucleated RBC % 0.2 /100WBC PT (9.9-12.6) secs INR (0.8-1.2) Sodium (135-145) mmol/L Potassium (3.5-5.0) mmol/L Chloride (101-111) mmol/L Carbon Dioxide (21-32) mmol/L Anion Gap (6-13) BUN (6-20) mg/dL Creatinine (0.4-1.0) mg/dL Estimated GFR (MDRD) (>89) Glucose (70-100) mg/dL Calcium (8.5-10.3) mg/dL Slides for Path Review ABX Reporting Has patient been on IV antibiotics over the past 48 hours?: No Assessment/Plan - Problem List (1) Elevated WBC count Impression: Her white cell count has been intermittently elevated since 2016. Sometimes with bandemia, sometimes not. Plan: At this time I am not treating his infection. May be leukemoid reaction. May be bone marrow dyscrasia. I am asking pathology to do a slide review. From there I can decide to do peripheral flow cytometry, etc. Qualifiers: Leukocytosis type: unspecified Qualified Code(s): D72.829 - Elevated white blood cell count, unspecified (2) Venous stasis dermatitis of both lower extremities Impression: She was admitted for failure to thrive with weakness fatigue, urine incontinence, worsening confusion in the face of horrible looking legs. It was thought that she has cellulitis of the legs but wound care and I feel that she may have more of a venous stasis dermatitis than true infection. I stopped antibiotics after 24 hours. She has not had a fever. Her white cell count has been continuously elevated since 2016. So right now her white cell count is stable. Blood cultures are negative after 2 days We are focusing on wound care. She has had dressings, Coban, Unna boot. Legs are smaller. Plan is for her to be discharged tomorrow. She will follow-up with wound care in the outpatient setting as well as with home health aide, nurse, and Occupational Therapy. (3) Supratherapeutic INR Conclusion/Plan: Patient's INR was 6.3. She was on Coumadin for atrial fibrillation and it has been held. given vitamin K for high level this am. Laboratory Tests 08/28/19 08/29/19 08/30/19 23:00 05:55 05: INR 6.3 H* 5.1 H* 7.0 H* Laboratory Tests 08/31/19 09/01/19 04:35 05:00 INR 1.8 H 1.3 H There may be an issue with her getting her medications on a regular basis. Even though she has Res care to help her with her medication, they can only prompt her to take them. It is unclear if she is compliant. In view of the fact that she takes antibiotics and Coumadin, there is also the possibility of an interaction. coumadin was resumed but INR still low. bridge w lovenox today. I asked dachloe roth today if they had discussed pros and cons with Dr. Vieira about continuing this medicine in face of hx of CVA w afib. (4) CHF (congestive heart failure), right Conclusion/Plan: Continue patient's Lasix 60 mg p.o. daily since now verified. Echocardiogram done August 2016 shows a normal ejection fraction of 65 to 70%. Moderate abnormal right heart pressures. At that time her RVSP at rest was 60 mmHg which was starting to get higher from the previous exam of March 2016. Selected Entries 08/28/19 08/29/19 08/30/19 21:55 03:01 16:25 Weight (kg) 68.039 kg 69 kg 69 kg 08/31/19 06:00 Weight (kg) 70.5 kg 09/01/19 05:45 Weight (kg) 68.5 kg It's not clear how much her right sided heart failure is contributing to her leg edema. Plan: Check ECHO. I have called Dr. Vieira to discuss the overall clinical picture of leg edema, diastolic heart failure, mild pulm HTN, use of coumadin, etc. She is not it today and will be back in the office . I have left a message with the back line office for her to give me a call. I'm wondering if we can adjust her meds. (5) Hypertension Conclusion/Plan: It appears patient is on multiple antihypertensive medications. Her medications were verified by pharmacy and she is on clonidine, Lasix 60 mg daily, Imdur 120 mg daily, lisinopril 20 mg daily, metoprolol tartrate 50 mg twice daily, and I suspect the Imdur may be contributing to her edema. Catapres 0.3, 3 times daily, Lasix 60 daily, Imdur 120 daily, lisinopril 20 daily and metoprolol tartrate 50 twice daily were all resumed. Imdur can worsen leg edema. Again, will discuss kalli Vieira on Thursday. No changes. (6) Diabetes mellitus Conclusion/Plan: Increasing her Lantus resulted in a glucose of 160 this morning, 157, and then 247 with lunch we started her on Lantus, and sliding scale insulin. In spite of this her sugars have been high. Yesterday increased to 15 units. Yesterday she was in the 300s, today she is in the 200s. We will increase Lantus to 18 units tomorrow morning.I did not order fixed dose insulin with meals. We will do so tonight Qualifiers: Diabetes mellitus type: type 2 (7) Atrial fibrillation Conclusion/Plan: Patient is rate controlled on metoprolol 50 mg p.o. twice daily. Resume coumadin Yesterday. Will bridge with Lovenox today. She does have a history of a stroke and it was at that time that they diagnosed her with A. fib. Will discuss with Dr. tr Woodruff if she still wants her to continue on Coumadin. This is in context of a global discussion of about advanced care planning. She is 89 years old, is gently failing, and are we going to discuss withdrawing some medications. I had this discussion with her daughter. Daughter was amenable to me discussing this with Dr. Rigoberto Woodruff. I have left a message with Dr. Vieira but she is not in the office today and will be back on Thursday. (8) Physical deconditioning Conclusion/Plan: It appears patient's overall health is steadily declining. This is becoming more than her son can manage at home. Her son lives with her. [place] her [place]. Daughter lives in [place]. Social work explains to me that multiple conversations were had with the daughter today who is the power of commercial litigation attorney. Unfortunately the daughter is designated DPOA and the son is designated as financial provider. However no paperwork is been done or filed. Daughter has made it clear she does not want mom to be placed in a skilled n ursing facility for rehab or wound management. She states that she will drive here and take care of mom 27/10 in her own home. Daughter states that they have been trying to get home health for over 2 months. I have ordered Home Health with PT/OT/bath aide to make sure it is in place for discharge. Palliative care consult has also been requested. SW will call [facility] care to make sure they are going to her home since family states they are not showiing up Unfortunately, today, they are in a boot camp. So they have administrative meetings and there was not inability to follow-up on the phone call. I did have a long conversation with her daughter today. We discussed some of the medications with the patient is on. Some medications may be contributing to her edema such as the Imdur. Were also wondering if she should still be continued on Coumadin considering her high INR now low INR. Should she be on atorvastatin at 89 years of age. The daughter will be picking her up tomorrow. She does not know if she will have time to speak to me tomorrow. So we have made arrangements for her to return to the hospital on September 02. She can come to the front lobby and call for me and I will be glad to go out there and discuss her mother's case with her. I had hoped to have some answers from at [address] before this conversation but Dr. Gregorio will not be able to speak to me to September 04. In the meantime I have ordered an echo, this is to assess her pulmonary hypertension. I have also ordered a serum protein electrophoresis to assess her history of multiple myeloma.
[2019-09-01] MEDS: ATORVASTATIN 10 MG TABLET PO SCH (21:01)
[2019-09-01] MEDS: traZODone 50 MG TABLET PO SCH (21:03)
[2019-09-02 05:03] LABS: BASOPHILS # (AUTO) 0.1 10^3/uL (0.0-0.1); BASOPHILS % (AUTO) 0.7 %; EOSINOPHILS # (AUTO) 0.8 10^3/uL (0.0-0.7); EOSINOPHILS % (AUTO) 6.6 %; HGB - HEMOGLOBIN 10.3 g/dL (12.0-16.0); LYMPHOCYTES # (AUTO) 1.9 10^3/uL (1.5-3.5); LYMPHOCYTES % (AUTO) 15.3 %; MEAN CORPUSCULAR HEMOGLOBIN 25.4 pg (27.0-31.0); MEAN CORPUSCULAR HGB CONC 31.4 g/dL (32.0-36.0); MEAN CORPUSCULAR VOLUME 80.8 fL (81.0-99.0); MEAN PLATELET VOLUME 9.1 fL (7.9-10.8); MONOCYTES # (AUTO) 1.3 10^3/uL (0.0-1.0); MONOCYTES % (AUTO) 10.6 %; NEUTROPHILS # (AUTO) 8.2 10^3/uL (1.5-6.6); NEUTROPHILS % (AUTO) 65.8 %; PLT - PLATELET COUNT 305 10^3/uL (130-450); RED BLOOD COUNT 4.06 10^6/uL (4.20-5.40); RED CELL DISTRIBUTION WIDTH 17.2 % (12.0-15.0); WHITE BLOOD COUNT 12.5 x10^3/uL (4.8-10.8)
[2019-09-02 05:07] LABS: INR 1.6 (0.8-1.2)
[2019-09-02 05:11] LABS: CALCIUM 8.8 mg/dL (8.5-10.3)
[2019-09-02] MEDS: SODIUM CHLORIDE FLUSH 0.9% 10 ML SYRINGE IVP SCH ×2 (06:58→08:44)
[2019-09-02] MEDS: cloNIDine 0.1 MG TABLET PO SCH (06:58)
[2019-09-02] MEDS: HYDROcod/ACETAM 5/325 MG TABLET PO PRN (06:59)
[2019-09-02] MEDS: LEVOTHYROXINE 88 MCG TABLET PO SCH (06:59)
[2019-09-02] MEDS: PANTOPRAZOLE 40 MG TABLET PO SCH (06:59)
[2019-09-02] MEDS: INSULIN GLARGINE 300 UNIT/3 ML PEN SUBQ SCH (07:01)
[2019-09-02] MEDS: INSULIN ASPART 300 UNIT/3 ML PEN SUBQ SCH (08:31)
[2019-09-02] MEDS: traMADol 50 MG TABLET PO SCH (08:32)
[2019-09-02] MEDS: LACTOBACILLUS RHAMNOSUS GG CAPSULE PO SCH (08:32)
[2019-09-02] MEDS: ISOSORBIDE MONONITRATE ER 30 MG TABLET PO SCH (08:32)
[2019-09-02] MEDS: lisinopriL 20 MG TABLET PO SCH (08:32)
[2019-09-02] MEDS: ASPIRIN EC 81 MG TABLET PO SCH (08:33)
[2019-09-02] MEDS: METOPROLOL TARTRATE 50 MG TABLET PO SCH (08:36)
[2019-09-02] MEDS: MULTIVITAMIN TABLET PO SCH (08:38)
[2019-09-02] MEDS: FUROSEMIDE 20 MG TABLET PO SCH (08:38)
[2019-09-02 08:40] VITALS: BP 157/82
[2019-09-02] MEDS: WARFARIN 1 MG TABLET PO SCH (08:41)
[2019-09-02] MEDS: polyethylene glycoL 3350 17 GM PACKET PO SCH (08:42)
[2019-09-02] MEDS: AREDS PRESERVISION PO SCH (08:42)
[2019-09-02] MEDS: ENOXAPARIN 60 MG/0.6 ML SYRINGE SUBQ SCH (08:42)
[2019-09-02] MEDS ORDERED: CHOLECALCIFEROL 25 MCG TABLET PO SCH (09:00)
--- NOTE | 2019-09-02 09:08 | Discharge Plan ---
Discharge Plan Problem Reviewed?: Yes Disposition: Home Health Service Condition: Stable Prescriptions: HYDROcod/ACETAM 5/325 [[place] 5/325] 1 tab PO Q4HR PRN #30 tablet PRN Reason: Pain Diet: Regular Activity Restrictions: No Restrictions (must use walker or stand by assist) Shower Restrictions: No Driving Restrictions: Yes (no driving) Assistance Devices: Walker Health Concerns: The patient has baseline memory loss and presents with worsening bilateral lower leg swelling, redness, pain, that have resulted in weeping blisters. She has been seen by her family practitioner who treated her with penicillin. She did not improve and she was recommended to see a family dermatology. Family treatment dermatology was recommending antibiotic therapy with vancomycin. The patient then presented to us after failing penicillin, clindamycin, Keflex. She has been treated as severe, severe venous stasis dermatitis. The mechanism of this edema is severe pulmonary hypertension. This patient had mild elevated right ventricular systolic pressures in 2016. She is followed by cardiology and May 31, 2019 her right ventricular systolic pressure was 51. With echocardiogram here in the hospital her right ventricular systolic pressure is now 77. She now has a wide-open mitral valve, and mild to moderate mitral regurgitation. At 89 years old, the patient is tearful. She does not want to be in the hospital and repeatedly asked us to please leave her alone and that she wanted to go home. Plan of Treatment: 1. The patient was felt to have severe, severe venous stasis dermatitis. Not cellulitis. She has a chronically elevated white cell count, but no fever. The white cell count has been elevated for 4 years. As such treatment consisted of wound care consultation. She has had Norman Morales bochito placed. She will be followed up by home health nursing and wound care. 2. I have called Dr. Vieira, her stacker tender, to review her medication list and see if we can stop some medications. Dr. Vieira is not in the office and Thursday, August 31 in September 01, and will be back in the office September 04. I have left a message for her to call me. 3. Her daughter, and power of tax associate attorney, is very actively involved in making decisions for her mother's health care. Her name is Trudy Segundo. Phone number [phone]. She lives in [place]. I will be discussing her mom's case at length on September 02 in the hospital lobby. 4. At this time, the patient will not have any medication change until I speak to Dr. Vieira. She will be followed at home with home health RN, Occupational Therapy, and wound management. She is also being followed by Palliative Care DITCHING MACHINE OPERATING ENGINEER, Lian Lewis. She and I have spoke at length about this plan. 5. Because of the complicated nature of her right-sided heart failure and leg edema, nursing home facility wound care management was offered. Power of tax associate attorney is adamant that mom will not go to nursing home facility and they would like her to return home with their care and home health care and palliative care. Care Goals: Care goals will be shared with daughter. While patient still has decision- making capacity, it is limited, and with deafness and cognitive loss of aging, it is difficult for her to communicate. Assessment: Daughter and son will continue to work with palliative care, home health, and daughter will be moving in to take care of mom until situation stabilizes. No Smoking: If you smoke, Please STOP! Call for help. Follow-up with: Sarah Kowalski MD [Primary Care Provider] -
--- NOTE | 2019-09-02 18:32 | DISCHARGE SUMMARY ---
"Discharge Summary Admit Date: 08/29/19 Discharge Date: 09/02/19 Discharging Provider: Brittney Reyes MD Condition at Discharge: Stable Discharge Disposition: 06 Home Health Service - DIAGNOSES Discharge Diagnoses with Status of Each Condition: 1. Venous stasis dermatitis of both lower extremities 2. Right-sided congestive heart failure, severe 3. Supratherapeutic INR 4. Hypertension 5. Type 2 diabetes mellitus, controlled, without complications, on long-term insulin 6. Hypothyroidism 7. Chronic atrial fibrillation 8. Chronic pain syndrome 9. Obstructive sleep apnea on CPAP 10. Hyperlipidemia 11. Physical deconditioning 12. Dementia 13. Elevated WBC 14. History of multiple myeloma - HPI History of Present Illness: Patient is a frail 89-year-old female with multiple medical comorbidities who presented from home via EMS with worsening bilateral lower extremity redness, swelling and weeping blisters. Her lower extremities are very painful to touch. She has had this problem going on for a while now. She follows up with the wound clinic at the [facility]. She last was seen at the wound clinic on August 25, 2019. She last saw dermatology on August 03, 2019 per report and was treated for cellulitis with a course of Keflex for 10 days. However the wound culture showed resistance to Keflex and she had an allergy testing performed for amoxicillin and she was started on a 10-day course of amoxicillin on August 10, 2019. It is reported that she completed this regimen. It has also been recommended that she perform bleach soaks daily. She has also been applying mupirocin to the open wounds on her lower extremities as recommended by dermatology. The patient has chronic venous stasis and lower extremity edema. There was concern that the redness seemed to progress since presentation to the emergency department today. Work-up included CBC which showed WBC of 13 and an INR of 6.3. As a result of the patient's clinical presentation she is admitted for further treatment. She is not a very good historian. There was question of memory issues. She would seem to start a sentence and stop midway. She denied chest pain, dyspnea, abdominal pain, nausea, vomiting, fever or chills. She is always cold. She uses a CPAP at home. She is followed by multiples specialist. She sees Dr. Fiona Vieira for cardiology Dr. Larsen for nephrology Dr. Reba Sahu for endocrinology Past Medical History Cardiovascular: reports: Hypertension, High cholesterol, Atrial fibrillation (on coumadin) Respiratory: reports: Sleep apnea, CPAP use Neuro: reports: Other (Mild Cognitive Impairment) Endocrine/Autoimmune: reports: Type 2 diabetes, HyPOthyroidism, Other (Secondary hyperaldosteronism) GI: reports: GERD : reports: Other (CKD stage 3, followed by Dr. Larsen due to DM) HEENT: reports: Macular degeneration Musculoskeletal: reports: Fibromyalgia, Chronic back pain Derm: reports: Other (Actinic Keratosis) - CONSULTS | PROCEDURES Procedures: 1. Pathology slide review for elevated white cell count shows inflammation. Microcytic anemia. 2. Preliminary echocardiogram not formally read shows atrial fibrillation. Systolic function hyperdynamic with ejection fraction greater than 75%. Pseudo- normal LV filling pattern consistent with grade 2 diastolic dysfunction. Moderate to severe increase in left atrial volume index and mild to moderate right atrial index increase. Since last echo biatrial dilatation has progressed. Mild to moderate aortic valve sclerosis but no stenosis. Mild mitral stenosis. Mild to moderate mitral regurgitation. Moderate to severe tricuspid regurgitation with severely abnormal right heart pressures and RVSP at rest 77 mmHg. Since her last echo in 2016 her ejection fraction is increased, atrial volume index is much more severely enlarged, worsening valvular heart disease and worsening right heart pressures. 3. Blood cultures negative after 2 days. - HOSPITAL COURSE Hospital Course: She was initially admitted as a painful swollen weeping legs that were red and hot to touch. Thought was possible cellulitis. The patient has a chronically elevated white cell count. We did request records from family dermatology. They let us know that the patient was treated by her PCP with penicillin and she had not improved. They were recommending vancomycin because a culture from August 02 showed Chryseobacterium species as well as enterococcus. She is also received Keflex, topical antibiotics. The general impression was that she had chronic venous stasis that was being fairly well controlled. Daughter reports that suddenly the legs became very swollen and much worse to treat. Part of it was the patient not being able to follow through with elevating her legs, taking her meds regularly, due to her dementia. [facility] is helping to take care of her at home but family reports hours are not being fulfilled and the son works maritime guard so is not at home during the day. We stopped antibiotics after 24 hours. White cell count remains chronically elevated, no fever. She improved with strict wound care. Palliative care has seen her and we are starting to focus more on comfort measures as requested by the daughter. We will also need to consider changing her medications. Imdur wi ll contribute to her leg edema. But at the same time echocardiogram shows worsening right-sided heart failure. In addition to the echo from 2016 and our echo that we obtained with this admission, her softball umpire did an echo May 31 of this year. At that time her right ventricular systolic pressure was 51, ejection fraction 65, severely dilated left atrium, mild mitral regurg, mild tricuspid regurg. Between May and now all of this is worsened and was most likely causing her increased leg edema that the family is noting. I have left a message with her softball umpire. She was not available on and Thursday. The and the . She returned to work on September 04 and hopefully she will call me. Supratherapeutic INR was treated by holding her Coumadin. She did receive 1 do se of vitamin K. Coumadin has been resumed. She has a history of stroke with A. fib. I will discuss if it is time to stop the Coumadin. High blood pressure remained problematic. Diabetes was controlled. She did not use CPAP while she was here. Because of her history of multiple myeloma, serum protein electrophoresis was ordered and received. But pending at the time of discharge. She has severe physical deconditioning and is very weak. Physical therapy did work with her. They are recommending continued occupational therapy in the home setting. I am also requesting physical therapy, home health aide, and [facility] [facility]. She has an appointment on September 04 with home health to look at her legs since she has the Unna boot on. At discharge temperature was 37.1. Pulse 89. Blood pressure 157/82. Respirations 18. We make sure she did not need oxygen. Oxygen desat test was 92% on room air at rest with a pulse of 71. With ambulation O2 sat was 93% with a heart rate of 89. She walked 40 feet. She is a forgetful, vague but pleasant elderly female who is 4 foot 6 inches tall and weighs 69 kg. Every day, several times a day she asked to please go home. There is no JVD with shotty neck adenopathy. Lungs have diminished breath sounds at the bases and she gets dyspneic with trying to get up and walk but quickly recovers. Decreased breath sounds but no crackles rhonchi wheezing. At rest she has slow shallow unlabored respiration. PMI is normally placed, controlled a regular rate and rhythm. Abdomen is nontender and benign. The extremities continue to have the v iolaceous deep changes of chronic venous stasis covered. It is difficult to see what her legs look like now that she has the Coban and Unna boot. But above and there is no redness. Legs are smaller than on admission. She is discharged in stable condition with greater than 30-minute spent coordin ating discharge. I will be speaking to her softball umpire on Thursday, September 04 and her daughter on September 02 to go over her case. - ALLERGIES Allergies/Adverse Reactions: Allergies Allergy/AdvReac Type Severity Reaction Status Date / Time pregabalin [From Lyrica] Allergy Severe Hives Verified 08/28/19 21:55 Iodinated Contrast Media Allergy Hives Verified 08/29/19 12:50 amlodipine AdvReac Edema Verified 08/28/19 21:55 - MEDICATIONS Home Medications: Ambulatory Orders Medication Instructions Recorded Confirmed Areds Preservision 1 tab PO BID 08/25/19 08/29/19 Aspirin [Aspirin EC] 81 mg PO DAILY 08/25/19 08/29/19 Ca/Mag/Zinc 1 tab PO DAILY 08/25/19 08/29/19 Cholecalciferol (Vitamin D3) 2,000 units PO DAILY 08/25/19 08/29/19 [Vitamin D3] Flaxseed Oil 1 cap PO DAILY 08/25/19 08/29/19 Furosemide 60 mg PO DAILY 08/25/19 08/29/19 Insulin Glargine [Lantus Solostar] 8 unit SQ QDBREAKFAST 08/25/19 08/29/19 Insulin Lispro [Humalog] 4 unit SQ BIDAC 08/25/19 08/29/19 Isosorbide Mononitrate ER [Imdur] 120 mg PO DAILY 08/25/19 08/29/19 Levothyroxine [Synthroid] 88 mcg PO QDAC 08/25/19 08/29/19 Metoprolol Tartrate 50 mg PO BID 08/25/19 08/29/19 Sitagliptin Phosphate [Januvia] 50 mg PO DAILY 08/25/19 08/29/19 Trazodone HCl 100 mg PO QPM 08/25/19 08/29/19 Warfarin [Coumadin] 2 mg PO SUTUTHSA@0900 08/25/19 08/29/19 Warfarin [Coumadin] 3 mg PO MOWEFR@0900 08/25/19 08/29/19 Acetaminophen 650 mg PO BID 08/29/19 08/29/19 Atorvastatin Calcium 20 mg PO QPM 08/29/19 08/29/19 Multivitamin [Theragran] 1 tab PO DAILY 08/29/19 08/29/19 Mupirocin 1 applic TOP DAILY 08/29/19 08/29/19 Sitagliptin Phosphate [Januvia] 50 mg PO DAILY 08/29/19 08/29/19 Tramadol HCl 50 mg PO BID 08/29/19 08/29/19 Tramadol HCl 50 mg PO DAILY PRN 08/29/19 08/29/19 cloNIDine HCL [Clonidine HCl] 0.3 mg PO TID 08/29/19 08/29/19 lisinopriL [Lisinopril] 20 mg PO DAILY 08/29/19 08/29/19 HYDROcod/ACETAM 5/325 [Jasper 5/325] 1 tab PO Q4HR PRN #30 tablet 09/02/19 Insulin Glargine [Lantus Solostar] 15 unit SUBQ QDAC pen 09/02/19 - LABS Result Diagrams: 09/02/19 04:50 09/02/19 04:50"
[2019-09-03 13:14] LABS: ALBUMIN 2.3 g/dL (3.8-4.8); ALPHA 1 GLOBULIN 0.5 g/dL (0.2-0.3); ALPHA 2 GLOBULIN 0.9 g/dL (0.5-0.9); BETA 1 GLOBULIN 0.4 g/dL (0.4-0.6); BETA 2 GLOBULIN 0.3 g/dL (0.2-0.5); GAMMA GLOBULIN 0.6 g/dL (0.8-1.7)
== END 2019-09-02 11:32 | disposition hospice, home (50) | DRG 300 ==
LOC: EDUNIT# → ED 21:44 → MS2 08-29 02:18
PROVIDERS: ADMIT Internal Medicine; ATTEND Specialist
PROC: 0HDLXZZ Extraction of Left Lower Leg Skin, External Approach (ICD-10-PCS; principal; 2019-08-30)
PROC: 0HDKXZZ Extraction of Right Lower Leg Skin, External Approach (ICD-10-PCS; 2019-08-30)
DX: L03.119 Cellulitis of unspecified part of limb (principal); E11.59 Type 2 diabetes mellitus with other circulatory complications; E87.1 Hypo-osmolality and hyponatremia; I12.9 Hypertensive chronic kidney disease with stage 1 through stage 4 chronic kidney disease, or unspecified chronic kidney disease; I13.0 Hypertensive heart and chronic kidney disease with heart failure and stage 1 through stage 4 chronic kidney disease, or unspecified chronic kidney disease; I87.2 Venous insufficiency (chronic) (peripheral); I50.810 Right heart failure, unspecified; E78.00 Pure hypercholesterolemia, unspecified; G47.30 Sleep apnea, unspecified; I27.29 Other secondary pulmonary hypertension; E11.22 Type 2 diabetes mellitus with diabetic chronic kidney disease; N18.3 Chronic kidney disease, stage 3 (moderate); I08.3 Combined rheumatic disorders of mitral, aortic and tricuspid valves; I48.91 Unspecified atrial fibrillation; S31.821A Laceration without foreign body of left buttock, initial encounter; S81.812A Laceration without foreign body, left lower leg, initial encounter; S81.811A Laceration without foreign body, right lower leg, initial encounter; X58.XXXA Exposure to other specified factors, initial encounter; G47.33 Obstructive sleep apnea (adult) (pediatric); D50.9 Iron deficiency anemia, unspecified; D72.829 Elevated white blood cell count, unspecified; F03.90 Unspecified dementia, unspecified severity, without behavioral disturbance, psychotic disturbance, mood disturbance, and anxiety; E03.9 Hypothyroidism, unspecified; G31.84 Mild cognitive impairment of uncertain or unknown etiology; E78.5 Hyperlipidemia, unspecified; R62.7 Adult failure to thrive; Z68.36 Body mass index [BMI] 36.0-36.9, adult; R79.1 Abnormal coagulation profile; K21.9 Gastro-esophageal reflux disease without esophagitis; E26.1 Secondary hyperaldosteronism; H35.30 Unspecified macular degeneration; M79.7 Fibromyalgia; G89.29 Other chronic pain; M54.9 Dorsalgia, unspecified; Z74.09 Other reduced mobility; R32 Unspecified urinary incontinence; R35.1 Nocturia; Z51.5 Encounter for palliative care; Z79.01 Long term (current) use of anticoagulants; Z79.4 Long term (current) use of insulin; Z79.82 Long term (current) use of aspirin; Z86.73 Personal history of transient ischemic attack (TIA), and cerebral infarction without residual deficits; Z85.79 Personal history of other malignant neoplasms of lymphoid, hematopoietic and related tissues; Z92.21 Personal history of antineoplastic chemotherapy; Z91.81 History of falling
CPT/HCPCS: 36415; 80048; 83036; 83605; 84155; 84165; 85025; 85610; 85651; 85730; 86140; 87040; 93306; 94761; 97161; 97167; 97530; 99233; 99284; 99285; A9270; J1650; J1815; J3370

== ENCOUNTER 2019-09-06 10:30 | Outpatient (CLI) | payer MEDICARE, OTHER ==
--- NOTE | 2019-09-06 15:17 | CONSULTATION NOTE ---
Palliative Care Follow Up - Referral Referring Provider: Dr. Sarah Kowalski Time of Visit: [id number] Referral setting: Home Referral Reason: Cognitive Impairment/Increased Edema/ Debility/Advanced Care Planning - Information Sources Records reviewed: Previous records reviewed History/Review of Systems obtained from: Patient, Family (daughter, Trudy present) Exam limitations: Clinical condition (cognitive deficit noteded, but improved from hospitalization and return home) - History of Present Illness Update Brief HPI Update: This is an 89-year-old female with multiple comorbidities who was seen and evaluated within her home with her daughter, Trudy present. The patient was hospitalized at [facility] from August 28 through September 01. She was discharged home with her daughter overseeing her care with 24-hour caregiving supplemented with private caregiving services from [facility]. The patient was admitted for redness progression to her lower extremities thought to be possible cellulitis after she was treated by dermatology for her lower extremity cellulitis in August 03, 2019 with two courses of antibiotics due to wound culture results. She had allergy testing preformed for amoxicillin and completed a 10 day course of amoxicillin. Antibiotics were stopped during her hospitalization after 24 hours with no increased elevation of her white cell counts and remained afebrile. She was seen and evaluated by family development specialist while hospitalized and she was placed in an ulnar boot due to her lower extremity edema. The daughter reports that the redness that was present a month ago when the patient was treated for cellulitis has resolved as it was elevated up her leg and pronounced. The patient was discharged home with home health nursing for wound care management as well as PT and OT services. Home health nursing presented to the home yesterday for admission and noted reports of increased lower extremity pain, edema to lower extremities as well as upper extremities and posterior region. The patient's daughter, Dee reports that yesterday and today she administered an additional 20 mg of furosemide for a total daily dose of 80 mg. The daughter Dee has left a message for the patient's packaging assembler as well as her customer solutions coordinator Drs. Todd and Dr. Larsen regarding increased in edema. The patient had her Unna boots removed and due to her increased lower extremity edema and pain. home health nursing was unable to obtain HECTOR readings.In the last 2 days since the daughter has administered an additional furosemide there has not been reduction in the patient's lower extremity edema. However, today the daughter reports of her duction to her upper extremity edema where yesterday was noted to be weeping due to congestion.While hospitalized the patient had an echocardiogram performed which demonstrated worsening right sided heart failure. When the patient presented to the hospital she had an elevated INR of 6.3. She has resumed her Coumadin therapy.Outpatient she is managed by the anticoagulant clinic at [facility] but while on home health will be followed by nursing staff. The patient denies any bleeding. Yesterday during wound care with home health nursing the daughter reports that the patient was experiencing increased lower extremity pain they will now be providing pain medication prior to nursing's arrival for adequate comfort. Today, the patient reports that she is comfortable. She is receiving tramadol 50 mg twice a day and has as needed hydrocodone/acetaminophen 5/325 mg which she typically receives once daily per the daughter's report. Presently this pain regimen is working for the patient. Patient has a past medical history of venous stasis dermatitis to bilateral lower extremities, congestive heart failure, atrial fibrillation on anticoagulation, cognitive impairment, hypertension, chronic kidney disease, diabetes mellitus type 2, sleep apnea with CPAP, hyperlipidemia, hypothyroidism, macular degeneration, chronic back pain, actinic keratosis, multiple myeloma diagnosed 1989 status post interferon, CVA, secondary hyperaldo steronism,Congestive heart failure. Social History - Living Situation Living arrangement: At home Living Situation: With family (Resides with her son, Rafal and her daughter, Trudy is presently overseeing her care 27/10 with caregivers) Support System: The patient has been and . She is presently . She has 5 children. Her oldest daughter, Trudy Morris oversees her medical care ([phone] (. Dee resides in [facility] which is approximately 4 hours away. She is presently in the home with her mother and her brother overseeing the patient's care and providing 24-hour caregiving assistance with supplementation of private caregiving staff through [facility]. The patient's son, Rafal works during the day, long hours and is often away from home 5 days a week. The patient lives on [facility] [address] and [employer] that she inherited from her father. Medications/Allergies - Medications Home Medications: Ambulatory Orders Medication Instructions Recorded Confirmed Areds Preservision 1 tab PO BID 08/25/19 08/29/19 Aspirin [Aspirin EC] 81 mg PO DAILY 08/25/19 08/29/19 Ca/Mag/Zinc 1 tab PO DAILY 08/25/19 08/29/19 Cholecalciferol (Vitamin D3) 2,000 units PO DAILY 08/25/19 08/29/19 [Vitamin D3] Flaxseed Oil 1 cap PO DAILY 08/25/19 08/29/19 Furosemide 60 mg PO DAILY 08/25/19 08/29/19 Insulin Glargine [Lantus Solostar] 8 unit SQ QDBREAKFAST 08/25/19 08/29/19 Insulin Lispro [Humalog] 4 unit SQ BIDAC 08/25/19 08/29/19 Isosorbide Mononitrate ER [Imdur] 120 mg PO DAILY 08/25/19 08/29/19 Levothyroxine [Synthroid] 88 mcg PO QDAC 08/25/19 08/29/19 Metoprolol Tartrate 50 mg PO BID 08/25/19 08/29/19 Sitagliptin Phosphate [Januvia] 50 mg PO DAILY 08/25/19 08/29/19 Trazodone HCl 100 mg PO QPM 08/25/19 08/29/19 Warfarin [Coumadin] 2 mg PO SUTUTHSA@0900 08/25/19 08/29/19 Warfarin [Coumadin] 3 mg PO MOWEFR@0900 08/25/19 08/29/19 Acetaminophen 650 mg PO BID 08/29/19 08/29/19 Atorvastatin Calcium 20 mg PO QPM 08/29/19 08/29/19 Multivitamin [Theragran] 1 tab PO DAILY 08/29/19 08/29/19 Mupirocin 1 applic TOP DAILY 08/29/19 08/29/19 Sitagliptin Phosphate [Januvia] 50 mg PO DAILY 08/29/19 08/29/19 Tramadol HCl 50 mg PO BID 08/29/19 08/29/19 Tramadol HCl 50 mg PO DAILY PRN 08/29/19 08/29/19 cloNIDine HCL [Clonidine HCl] 0.3 mg PO TID 08/29/19 08/29/19 lisinopriL [Lisinopril] 20 mg PO DAILY 08/29/19 08/29/19 HYDROcod/ACETAM 5/325 [[place] 5/325] 1 tab PO Q4HR PRN #30 tablet 09/02/19 Insulin Glargine [Lantus Solostar] 15 unit SUBQ QDAC pen 09/02/19 - Allergies Allergies/Adverse Reactions: Allergies Allergy/AdvReac Type Severity Reaction Status Date / Time pregabalin [From Lyrica] Allergy Severe Hives Verified 08/28/19 21:55 Iodinated Contrast Media Allergy Hives Verified 08/29/19 12:50 amlodipine AdvReac Edema Verified 08/28/19 21:55 Review of Systems - Constitutional Constitutional: reports: Weight gain (weight today 155lb with clothes and shoes; weight during hospitalization 151.8lb). denies: Fever - Eyes Eyes: reports: Vision loss, Corrective lenses - Ears, Nose & Throat Ears, Nose & Throat: denies: Hearing loss - Cardiovascular Cardiovascular: denies: Chest pain - Respiratory Respiratory: reports: SOB with exertion. denies: Cough, Wheezing, SOB at rest - Gastrointestinal Gastrointestinal: reports: Other (Fair appetite). denies: Abdominal pain, Constipation, Diarrhea - Genitourinary Genitourinary: reports: Incontinence, Other (Despite increase in furosemide dosage the patient has not had an increase in her urinary output in the last 2 days). denies: Dysuria, Frequency, Urgency - Integumentary Integumentary: reports: Other (LE venous stasis changes; skin tear to LLE---dressings in place to LE) - Neurological Neurological: reports: General weakness, Memory problems - Endocrine Endocrine: reports: Diabetes type 2, Hypothyroidism - Hematologic/Lymphatic Hematologic/Lymphatic: reports: Other (History of multiple myeloma) - All Other Systems All Other Systems: reports: Reviewed and negative Physical Exam - Vital Signs Temperature: 36.0 C Pulse Rate: 73 Respiratory Rate: 20 O2 Saturation: 94 (on RA at rest) Blood Pressure: 105/82 (right wrist cuff) - Physical Exam General Appearance: positive: No acute distress, Alert, Other (frail and cloth calender nically ill appearing; initially in bathrrom and slowly ambulated with rollator with purposeful steps to her recliner. No pants in place with only a top and depends due to LE wounds and swelling.) Eyes Bilateral: positive: Normal inspection, Other (+corrective lenses) Neck: positive: No JVD, Trachea midline Cardiovascular: positive: Regular rate & rhythm Respiratory: positive: No respiratory distress, Diminished in bases (slightly), Other (reports DUQUE with ambulation) Abdomen: positive: Non-tender, Soft, Nml bowel sounds Skin: positive: Bruising (BUE, scattered due to thin, fragile skin as well as due to recent blood draws while hospitalized), Other (Along bilateral thighs there are scattered atypical lesions that are not pruritic and not weeping. RLE dressing C/D/I. LLE dressing noted with some serosanguineous drainage from skin tear that was addressed and dressing changed--see POC for further details. Visible chronic venous stasis changes to RLE that remains stable and not progressed since hospitalization) Extremities: positive: Other (+anasacra noted to BUE (no weeping), abdomen and BLE. At baseline patient has BLE edema and today is noted at +3 from pedal to below knee bilaterally.) Neurologic/Psychiatric: positive: Oriented x3 (Able to recall that she was hospitalized recently as well as the location; aware of time, person and place on exam today.), Mood/affect nml, Weakness, Other (+short term memory deficits) Palliative Care - POLST Patient has POLST: No Pain: Pain unchanged (BLE, improved with removal of Unna boots that were causing increased pain to BLE.) Drowsiness/Sedation: Moderate (4-6) (will nap frequently throughout the day) Nausea: None Anorexia: None Dyspnea: Mild (1-3) (noted on exertion) Feelings of wellbeing/Perceived Quality of Life: Fair Sleep: Other (typically has nocturia but this has decreased recently) Constipation: No Performance Status: Patient is ambulatory with a Rollator at a purposeful, slow pace as she is afraid of falling. She has history of falls. Her last fall was on 08/20 that required a lift assist from EMS. She becomes easily fatigued during ambulation. She requires 24-hour caregiving assistance. She has incontinence of urine intermittently. - Palliative Care Discussion: The patient has had a significant functional decline over the last year. Here prior she was able to assist with finish filer, participate in her crafts, and ambulated intermittently with a cane. Now, she has a history of frequent falls as well as requiring the use of a Rollator. She is quite definitive in her foot placement as she has a fear of falling. The patient herself reports that she has a fear of falling and hitting her head and dying. When questioning if she has a fear of dying she denied. When exploring goals of care the patient wishes that she was "25 years younger." Expanding on this for their in regards to goals she wishes to be able to get stronger and be able to get up and down more independently. She presently does not perceive a poor quality of life but does relay that she is easily fatigued while attending multiple outpatient medical appointments. She is emphatic that she is happy to be back in her home after being discharged from the hospital. She is quite clear that she does not wish to return to the hospital 7. Exploring hospitalization versus comfort measures within the home as the patient wishes to remain in her home she does not quite grasp the complexity of her multiple comorbidities. Both the patient and the daughter acknowledge the patient's cognitive impairments in regards to her short-term memory.As the patient does not presently have a designated D POA as the paperwork has not been found at present she was quite clear that she wishes to appoint her daughter, Dee has her first healthcare agent and her son, Rafal to act as a second agent if she is unable to speak for herself to honor her wishes in regards to her health.The patient's daughter, Dee continues to look for the D POA paperwork. Given the patient's noted anasarca on physical examin ation and inability to maintain the Unna boot placement to bilateral lower extremities and in light of her recent echocardiogram demonstrating severe right-sided congestive heart failure the patient Is demonstrating further advancement of her underlying chronic medical conditions.P OL ST discussion begun today with the patient and daughter to explore the patient's wishes regarding end of life. When questioned what she is aware of regarding CPR she was unable to answer. She is clear that she wishes to remain at home but also wishes to have interventions if there is "a chance I can come back." When exploring if coming back to her present physical state would be acceptable she relayed that she would not wish to "become a vegetable." Results - Lab Results Lab results reviewed: Yes Lab and Imaging Results: September 02, 2019 Sodium 133, potassium 4.2, BUN 29, creatinine 1.0, glucose 212, WBC 12.5, hem oglobin 10.3, hematocrit 32.8%, platelet 305, Estimated creatinine clearance 43 mL/min Impression and Recommendations - Palliative Care Impression: This is a frail 89-year-old female with noted anasarca on physical examination today with chronic venous stasis changes to her bilateral lower extremities and worsening right started congestive heart failure. She did not adequately respond to increase in diuretic therapy over the course of the last 2 days and has had a reduction in her urinary output. The patient herself is quite fragile and remains at high risk for further complications and decline. Palliative care to continue build rapport, to provide support for symptom management, coordination of care, and anticipatory guidance. Recommendations/Counseling Done: 1. Anascara, generalized to LE, UE and abdomen due to right sided congestive heart failure. Weight today 155lb. LE appears at baseline in edema on examination today with noted edema to UE and abdomen, which is not the patient's typical presentation. She reports DUQUE. She has not had an increase in urinary output after increase in diuretic therapy of lasix 60mg to 80mg for the last two days. Consider trial of Metolazone 2.5mg daily x 2 days as adjunct to lasix 60mg daily with KCl supplementation for additional diuresis and patient's comfort level. Continue elevation of BLE throughout the day, ideally above level of heart. Message left for patient's packaging assembler, Dr. Vieira and awaiting for a return phone call. Rx for metolazone sent to pharmacy for daughter and will f/u regarding instructions regarding moving forward with administration with understanding verbalized. 2. LLE skin tear and chronic venous stasis dermatitis. To LLE skin tear today due to drainage the dressing was removed, site cleansed with NS and patted dry, skin barrier was applied around the skin tear and meplix was applied after xeroform strip was placed. The RLE was wrapped in kurlex and secured with a knit sleeve. Continue home health nursing for wound care management. 3. HTN. No cardiac awareness. Continue clonidine, lisinopril metoprolol and imudur as ordered. To f/u with cardiology if imdur dosage may be contributing to LE edema and if dosage may be adjusted. Continue to monitor BP trends and adjust antihypertensive medications as needed. 4. Afib. Continue metoprolol for rate control. On anticoagulation with coumadin. Continue to adjust coumadin based on routine INR results and followed by [facility]. INR to be obtained by home health nursing while patient is on home health service. 5. Debility and deconditioning. More acute given recent hospitalization but noted functional decline by family over the course of the last year. Fall precautions and 24 hour supervision within the home. Continue home PT and OT for strengthening and energy conservation. 6. Mild cognitive impairment. Short-term memory impairment noted. Fall precautions. Supportive care. The patient herself lacks insight into the complexity of her medical conditions, but is able to participate in the medical decision making process with assistance. 7. Advanced care planning. DaughterTrudy is searching for DPOA paperwork but if unable to be found the patient is quite clear that she wishes that her daughter Trudy be primary healthcare agent and her son, Rafal, as secondary and a new form could be completed and notarized. Will f/u with stamping die try out worker if possible to notarize the document in the future if needed. Presently, no POLST in place and therefore the patient remains a FULL CODE. The daughter recognizes the decline that patient has experienced in the last year but they "don't want to throw in the towel yet." The patient herself, when exploring goals of care wishes to have interventions if it would provide a chance for her to "come back." Time Spent: Total time spent 90 minutes with greater than 50% time spent with patient and daughterTrudy regarding escalation vs de-escalation of care, palliative/hospice philosophy as well as care coordination , review of pain and symptom management and anticipatory guidance. Disclaimer: The chart note was formulated using voice recognition technology and unfortunately sound alike errors may occur.
== END 2019-09-06 10:31 | disposition home or self-care (01) ==
LOC: PC 10:30
PROVIDERS: ATTEND Nurse Practitioner Family
DX: Z51.5 Encounter for palliative care (principal); I11.0 Hypertensive heart disease with heart failure; I50.9 Heart failure, unspecified; I48.91 Unspecified atrial fibrillation; I87.2 Venous insufficiency (chronic) (peripheral); G31.84 Mild cognitive impairment of uncertain or unknown etiology; R53.81 Other malaise; Z79.899 Other long term (current) drug therapy; Z79.891 Long term (current) use of opiate analgesic; Z79.01 Long term (current) use of anticoagulants; Z91.81 History of falling; Z74.3 Need for continuous supervision
CPT/HCPCS: 99350

== ENCOUNTER 2019-09-27 09:40 | Outpatient (CLI) | payer MEDICARE, OTHER ==
--- NOTE | 2019-09-27 15:13 | CONSULTATION NOTE ---
Palliative Care Follow Up - Referral Referring Provider: Dr. Sarah Kowalski Time of Visit: 0940 Referral setting: Home Referral Reason: CHF/Advanced Care Planning/Pain Management - Information Sources Records reviewed: Previous records reviewed History/Review of Systems obtained from: Patient, Family, Caregiver (Res occasional caregiver) Exam limitations: Clinical condition (cognitive impairment and [place]) - History of Present Illness Update Brief HPI Update: And evaluated today in her home with her daughter, Trudy present after recent [id number] hospitalizations due to congestive heart failure, right lower extremity abscess, and pain. The patient was hospitalized at [facility] from 08/28 to 09/02/2019 due to lower extremity edema and due to worsening erythema to her lower extremities thought to be cellulitic in nature. During her hospitalization at [facility] she also had a supratheraputic INR and her dose was adjusted. The patient was treated by outpatient dermatology for cellulitis to her lower extremities in late July 2019 and then again in August 2019. The patient just underwent a hospitalization at [facility] from 09/07 to 09/19/2019 due to acute on chronic diastolic and systolic heart failure. The patient was Developing increased anasarca and her cardiology appointment was bumped up and she was directly admitted on 09/07 from her cardiology appointment. She was not responding to her increased dosage of furosemide. While hospitalized the patient was diuresed with IV furosemide with minimal offloading of her edema. The patient typically weighs approximately 125 pounds. The patient is presently up to 160 pounds. She also developed an abscess to her right lower extremity which was aspirated by orthopedics and grew Klebsiella oxytoca. Blood cultures were negative. And she was treated with IV antibiotic therapy after being consulted with infectious disease. This area reoccurred and then an I&D was performed on 09/10. She was discharged home on Augmentin and has completed that oral antibiotic course.Her ejection fraction is noted to be at 47% and her RSVP at 65 mmHg. After the abscess to her right lower extremity was drained her lower extremity pain has resolved. The patient was discharged on furosemide 80 mg daily with increased potassium supplementation.While hospitalized she also had palliative care consulted and a POLST was completed as DN AR. Since the patient was discharged from [facility] on 09/19/2019 she has had a continued decline. Upon discharge she was able to ambulate. Now, she is unable to ambulate and is dependent on a wheelchair. She is having increased fatigue and weakness. Her weight has also increased and again is at 160 pounds. Cardiology was consulted yesterday after home health services evaluated the patient and her torsemide dose was increased to 100 mg and her metolazone was administered yesterday as well. The daughter reports minimal increase in urinary output. Yesterday she had some weeping to her right upper extremity. Today, some noted weeping to her left lower extremity through her dressings. The patient denies any lower extremity pain. The patient for the last 3 days has had increase in diarrhea. It is in larger amounts and loose. The patient denies nausea, vomiting, or abdominal pain. The patient also has a longstanding history of diabetes mellitus type 2. The daughter has reviewed her blood glucose log and her average for the last 7 days has been 110. There have been noted lows of 62. The daughter reports that even a month ago the patient's blood glucose levels were in the 200s. Now she ranges Below 100 to mid 100. The patient continues to report that she has a good appetite. The daughter is worried about the patient having a low blood glucose level overnight and not having awareness. They have a glucagon pen within the home. The patient enjoys ice cream prior to bed. The patient continues on Coumadin therapy with the last INR subtherapeutic and is followed by anticoagulation clinic at [facility]. The patient denies any bleeding rectally. The patient is presently receiving wound care services for her lower extremities from home health. The patient's daughter reports that she has noticed more of an impairment in her cognition with increased confusion.Upon evaluation today, the patient just had a large loose bowel movement and she is now incontinent of both bowel and bladder. She just was cleaned up by her private caregiver and was transported into the [facility] area from her bedroom in her wheelchair. No evidence of distress reports fatigue.The patient reports to feeling winded with exertion however, her pulse oximetry is within normal range. The patient reports that she felt better with oxygen therapy while she was in the hospital as well as use of supplemental oxygen from her daughter who visit her her over the weekend. Patient has a past medical history of venous stasis dermatitis to bilateral lower extremities, congestive heart failure, atrial fibrillation on anticoagulation, chronic impairment, hypertension, chronic kidney disease, diabetes mellitus type 2, sleep apnea with CPAP, hyperlipidemia, hypothyroidism, macular degeneration, chronic back pain, actinic keratosis, multiple myeloma diagnosed 1990 status post interferon, CVA, secondary hyperaldosteronism, congestive heart failure, Pulmonary hypertension. Social History - Living Situation Living arrangement: At home Living Situation: With family (Patient resides with her son, Rafal and she has caregiving support. [place] Support System: Is . She has been and . She has 5 children. Her oldest daughter, Dee oversees her medical care contact [phone],.The patient has caregiving assistance through rest care. Her son, Rafal works during the day 5 days a week for long hours. The patient lives on a property and [employer] that she inherited from her father. Medications/Allergies - Medications Home Medications: Ambulatory Orders Medication Instructions Recorded Confirmed Areds Preservision 1 tab PO BID 08/25/19 08/29/19 Aspirin [Aspirin EC] 81 mg PO DAILY 08/25/19 08/29/19 Ca/Mag/Zinc 1 tab PO DAILY 08/25/19 08/29/19 Insulin Glargine [Lantus Solostar] 8 unit SQ QDBREAKFAST 08/25/19 08/29/19 Insulin Lispro [Humalog] 4 unit SQ BIDAC 08/25/19 08/29/19 Isosorbide Mononitrate ER [Imdur] 240 mg PO DAILY 08/25/19 08/29/19 Levothyroxine [Synthroid] 88 mcg PO QDAC 08/25/19 08/29/19 Trazodone HCl 100 mg PO QPM 08/25/19 08/29/19 Warfarin [Coumadin] 2 mg PO SUTUTHSA@0900 08/25/19 08/29/19 Warfarin [Coumadin] 3 mg PO MOWEFR@0900 08/25/19 08/29/19 Acetaminophen 500 mg PO TID 08/29/19 08/29/19 Tramadol HCl 50 mg PO DAILY PRN 08/29/19 08/29/19 cloNIDine HCL [Clonidine HCl] 0.3 mg PO TID 08/29/19 08/29/19 lisinopriL [Lisinopril] 20 mg PO DAILY 08/29/19 08/29/19 Hydralazine HCl 50 mg PO BID 09/27/19 09/27/19 Metoprolol Succinate [Toprol Xl] 50 mg PO BID 09/27/19 09/27/19 Potassium Chloride 20 meq PO DAILY 09/27/19 09/27/19 Torsemide 100 mg PO DAILY 09/27/19 09/27/19 metOLazone [Metolazone] 2.5 mg PO .MONWEDFRI 09/27/19 09/27/19 - Allergies Allergies/Adverse Reactions: Allergies Allergy/AdvReac Type Severity Reaction Status Date / Time pregabalin [From Lyrica] Allergy Severe Hives Verified 08/28/19 21:55 Iodinated Contrast Media Allergy Hives Verified 08/29/19 12:50 amlodipine AdvReac Edema Verified 08/28/19 21:55 Review of Systems - Constitutional Constitutional: reports: Fatigue, Weight gain (weight presently 160lbs. See HPI.). denies: Fever - Eyes Eyes: reports: Vision loss (due to macular degeneration), Corrective lenses - Ears, Nose & Throat Ears, Nose & Throat: reports: Hearing loss - Cardiovascular Cardiovascular: reports: Edema. denies: Palpitations, Chest pain - Respiratory Respiratory: denies: Cough, Wheezing - Gastrointestinal Gastrointestinal: reports: Abdominal distention, Diarrhea. denies: Abdominal pain, Constipation, Bloody stools, Nausea, Vomiting - Genitourinary Genitourinary: reports: Incontinence. denies: Dysuria - Musculoskeletal Musculoskeletal: reports: Back pain, Muscle weakness, Assistive devices, Transfer issues - Integumentary Integumentary: reports: Other (wounds to BLE with dressings in place) - Neurological Neurological: reports: General weakness, Memory problems - Endocrine Endocrine: reports: Diabetes type 2, Hypothyroidism - Hematologic/Lymphatic Hematologic/Lymphatic: reports: Bruising, Other (history of multiple myeloma) - All Other Systems All Other Systems: reports: Reviewed and negative Physical Exam - Vital Signs Pulse Rate: 61 Respiratory Rate: 18 O2 Saturation: 94 (on RA at rest) Blood Pressure: 108/50 (left wrist cuff) - Physical Exam General Appearance: positive: No acute distress, Alert, Other (frail, fatigued and chronically ill appearing) Eyes Bilateral: positive: Normal inspection ENT: positive: No signs of dehydration Neck: positive: Trachea midline. negative: No JVD Cardiovascular: positive: Irregular, Systolic murmur Respiratory: positive: No respiratory distress, Breath sounds nml Abdomen: positive: Non-tender, Soft, Nml bowel sounds, Distended (due to edema) Skin: positive: Wound (BLE with dressings in place without pain. Scaly rash with small circular patches to upper aspect of BLE.) Extremities: positive: Other (UE edema +2, edema to abdomen, and +3 edema to BLE) Neurologic/Psychiatric: positive: Oriented x3 (noted memory deficits with underlying fatigue), Weakness Palliative Care - POLST Patient has POLST: Yes POLST Status: DNR Pain: Pain improved (to BLE and continues to have chronic back pain that responds well to routine tylenol and heat pack) Constipation: No Performance Status: The patient is no longer ambulatory and is becoming quite fatigued with activity and during the day. She requires 24-hour caregiving assistance. She is incontinent of bowel and bladder. - Palliative Care Discussion: The patient has had a significant functional decline over the last year with recent [id number] hospitalizations.The patient has worsening congestive heart failure as well as worsening pulmonary hypertension. During her last hospitalization her cardiac medications were adjusted including her diuretic therapy. Despite her recent hospitalization and diuretic adjustment she continues to display evidence of generalized anasarca.The patient herself is quite adamant that she does not wish to return to the hospital. She did not like the fact that she was unable to have visitors and was not able to see her family. Upon discharge from the hospital on 09/18 her other children came to visit her. They even had a dinner at the dining table with her at the head that she was quite fine to reflect upon. It has been quite difficult for the patient's daughter, Dee to see her mother's decline. Up until a few months ago the patient was able to be ambulatory and did not have impairment due to her chronic systolic and diastolic heart failure that has been worsening. Dee, has been optimistic that the patient would have improvement with IV diuresis and then oral diuresis however, this is not been the case. While hospitalized the patient's POLST was updated to DN AR. Her daughter, Dee also reflects that approximately 20 years ago she was diagnosed with multiple myeloma and given a prognosis of approximately 5 years which she has subsequently overcome tenfold and has been "living on borrowed time." Upon review with the patient and daughter today despite the patient being quite clear that she does not wish to return to the hospital she also reflected that she feels that she is dying. The patient wishes to remain at home and be made com fortable. The patient's family is still grappling with the changes that have occurred to the patient's health state in the last few months with a sharp functional decline. Now, it is noted that she is having some worsening cognitive decline but she is able to make clear her wishes with assistance from her family for complex medical decision making. Impression and Recommendations - Palliative Care Impression: This is a frail 89-year-old female with anasarca, chronic diastolic and congestive heart failure not responding to diuretic therapy, chronic venous stasis changes, diabetes mellitus type 2, who is functionally declining.The patient has had minimal change in her urinary output despite an increase in diuretic therapy. The patient herself is quite adamant that sheNo longer wishes hospitalization. She is now with acute diarrhea after multiple courses of antibiotic therapy. The patient is quite fragile and is at high risk for further decline. Palliative care to transition to hospice services with agreement of the patient and the daughter with the goal to focus on symptom management and quality of life in order for the patient to remain at home which is her primary goal. Recommendations/Counseling Done: 1. Anasarca, generalized to abdomen, bilateral lower extremities and right upper extremities due to chronic diastolic and systolic congestive heart failure. Weight yesterday reported at 160 pounds.Patiently recently had increase in furosemide to 100 mg daily as well as modifications to her metolazone dosing without noted improvement to her generalized edema.At this point, patient is having symptoms burden from worsening congestive heart failure on top of severe pulmonary hypertension. Unclear if additional adjustment to diuretic therapy would provide any benefit. Call placed to patient's call center specialist Dr. Vieira ([phone]) for any additional recommendations and awaiting return call from the office. At this time, The patient no longer wishes to have hospitalizations and wishes to remain at home. As this is the case and due to her significant weight gain poor response to diuretic therapy prognosis would likely be in weeks to months. The patient wishes to adjust her focus focus on comfort and to remain at home and to transition to hospice services. Would recommend supplemental oxygen for comfort measures as the patient feels improvement with oxygen despite no evidence of desaturation. 2. Diabetes mellitus type 2.With patient's recent decline her blood glucose levels on average have been 110. There have been some noted lows. The patient's daughter expresses concerns Regarding the patient having lows overnight and not being aware. Due to patient's declining physical health recommend discontinuation of Januvia. As the patient is quite frail and fragile wish to avoid hypoglycemia and would prefer the patient to have higher levels of glucose levels. If the patient has blood glucose levels above 200 consistently then would consider modification of her Lantus therapy. At the present time continue Humalog and Lantus as ordered and continue to monitor blood glucose trends. 3. Atrial fibrillation. Continue metoprolol for rate control. On anticoagulation with Coumadin. Patient's daughter wishes the patient to remain on Coumadin therapy at the present time weighing benefits versus burdens as the patient's daughter has fear of the patient sustaining a CVA. We will continue to have Coumadin monitored by would be home hospice and hospice medical records field technician to follow and address. 4. Mild cognitive impairment. Fall precautions. Noted worsening cognition reported by the patient's daughter with increased fatigue. Supportive care. The patient herself lacks insight into the complexity of her medical conditions but is able to participate in declaring who she wishes to speak for her and regarding healthcare decision making with her providing some input. 5. Diarrhea, worsening. This is in the setting of recent completion of Augmentin for right lower extremity abscess. Patient has had recent Theo had several courses of oral antibiotics. In light of recent antibiotic therapy and worsening diarrhea will evaluate for C differential. Provided container for daughter with request to drop off stool specimen to would be health lab and prescription sent to laboratory services. Continue probiotic therapy at the present time for support. 6. Advanced care planning. At the present time patient's daughter has been unable to find D POA paperwork however, patient has been quite clear that she wishes for her daughter, Dee to be her primary healthcare agent and her son, Rafal as secondary. We will have the home health social secretary complete D POA motorization when patient comes on to hospice services. Patient is DN AR and is quite adamant that she does not wish to return to the hospital. Hospice services will provide additional support with the patient's goals to remain at home and relieve caregiver burden for the daughter, Dee to have assistance in management of the patient's symptoms.Both the patient and the daughter Dee are in agreement to transition to hospice services. Time Spent: Total time spent 120 minutes with greater than 50% of this spent in counseling and coordination of care with patient, daughter Trudy and PCP Dr. Kowalski (via phone call in [facility]);escalation vs de-escalation of care; hospice philosophy; review of congestive heart failure; review of symptom management and anticipatory guidance. disclaimer: The chart note was formulated using voice recognition technology and unfortunately sound alike errors may occur.
== END 2019-09-27 09:41 | disposition home or self-care (01) ==
LOC: PC 09:40
PROVIDERS: ATTEND Nurse Practitioner Family
DX: Z51.5 Encounter for palliative care (principal); I13.0 Hypertensive heart and chronic kidney disease with heart failure and stage 1 through stage 4 chronic kidney disease, or unspecified chronic kidney disease; I50.42 Chronic combined systolic (congestive) and diastolic (congestive) heart failure; N18.9 Chronic kidney disease, unspecified; E11.22 Type 2 diabetes mellitus with diabetic chronic kidney disease; I27.20 Pulmonary hypertension, unspecified; I48.91 Unspecified atrial fibrillation; G89.29 Other chronic pain; R32 Unspecified urinary incontinence; R15.9 Full incontinence of feces; G31.84 Mild cognitive impairment of uncertain or unknown etiology; R19.7 Diarrhea, unspecified; Z79.899 Other long term (current) drug therapy; Z79.4 Long term (current) use of insulin; Z79.01 Long term (current) use of anticoagulants; Z99.3 Dependence on wheelchair; Z66 Do not resuscitate
CPT/HCPCS: 99349; 99354; 99355

== ENCOUNTER 2019-09-28 08:00 | Outpatient (CLI) | payer MEDICARE, OTHER ==
[2019-09-28 14:31] LABS: ALBUMIN 2.8 g/dL (3.2-5.5); CREATININE 1.7 mg/dL (0.4-1.0); PHOSPHORUS 3.8 mg/dL (2.5-4.6)
== END 2019-09-28 23:59 | disposition home or self-care (01) ==
LOC: LAB.R 08:00
PROVIDERS: ATTEND Internal Medicine Cardiovascular Disease
DX: I50.32 Chronic diastolic (congestive) heart failure (principal); Z79.899 Other long term (current) drug therapy
CPT/HCPCS: 80048; 80069; 83880

== ENCOUNTER 2019-09-30 21:44 | Outpatient (CLI) | payer MEDICARE, OTHER | END 2019-09-30 21:45 | disposition E | LOC: EMS 21:44 | PROVIDERS: ATTEND Surgery | DX: I46.9 Cardiac arrest, cause unspecified (principal) ==